=== PATIENT | female | born 1955 | race Caucasian/White ===

== ENCOUNTER 2024-12-27 10:54 | Outpatient (AMB) | payer MEDICARE, SELFPAY ==
--- NOTE | 2024-12-27 11:10 | MHC.PC.OV ---
Vital Signs 12/27/24 11:17 Height 5 ft 2.5 in Weight 192 lb 6 oz BMI 34.6 BP 124/72 Blood Pressure Location Rt brachial Position Sitting Respiration 12 Pulse 73 Pulse Source Pulse Oximeter Temp 96.9 F Temp Source Oral Pulse Oximetry (%) 97 Oxygen Delivery Method Room Air Intake Visit Reasons: EST CARE Intake Note: new patient to establish care Primary Health Organisation Manager Required: No Allergies azithromycin Allergy (Severe, Verified 12/27/24 11:14) Facial Swelling sulfamethoxazole [From Bactrim] Allergy (Severe, Verified 12/27/24 11:14) Gastrointestinal Upset trimethoprim [From Bactrim] Allergy (Severe, Verified 12/27/24 11:14) Gastrointestinal Upset Medication List - Last Reconciled 12/27/24 by CHRIS StephensP- albuterol sulfate 90 mcg/actuation inhalation amlodipine 5 mg PO DAILY cholecalciferol (vitamin D3) 50 mcg PO DAILY folic acid 1 mg PO DAILY losartan 100 mg PO DAILY methotrexate sodium mg PO montelukast 10 mg PO DAILY omeprazole 20 mg PO DAILY Tobacco use date assessed: 12/27/24 Fall risk assessment: No Falls in past year Last assessed Fall Risk: 12/27/24 Dental Screening Dental Screen Date: 12/27/24 Did you have a dental visit in the last 12 months?: No Did you have a dental problem in the last 6 months where you did not have access to dental care?: No Was dental information given to patient?: Patient has dentist HPI HPI Comments History of Present Illness Details 69 y/o F with HTN, GERD, Asthma, Vitamin D def, rheumatoid arthritis, OA, migraines w/o aura, seasonal allergies SurgHx: FHx SocHx: Health Maintenance: See scanned preventative medicine assessment with personalized health plan and screening schedule. Colon: Mammo DEXA PAP Vaccines: PPSV 2015, declined flu and TDap AAA screen EKG: [place] of Care: Rheum Dr Montemayor Visual Acuity: Hearing Screening: ACP: Dietary/Nutrition/Exercise Edu provided: Y History of Present Illness - The patient is a 69-year-old female presenting to establish care and review her chronic conditions. - She moved from a previous care setting due to changes in their payment model, prompting an extensive search for a new provider. Dr Aranda In [place] No records avail @ this time - vitamin D deficiency, managed through supplementation - Suffers from arthritis, specifically rheumatoid, and osteoarthritis, managed by Rheum - Reports debilitating migraines, historically poorly managed with medications but has found some relief with a specific intervention in the form of piercing - Maintains skepticism about ongoing use of certain medications due to side effects and has identified issues with several options historically. - Demonstrates cautious use of medications, careful monitoring of interactions particularly with methotrexate for arthritis. - Has nonseasonal allergies and recurrent sinus infections, managed with montelukast. - Asthma was RXd symbicort, could not afford. Using ALEX frequently. Reports functional limitations with walking as exhibited during a recent family vacation when experiencing difficulty breathing. Review of Systems - General: Reports fatigue; denies recent weight change or fevers. - Musculoskeletal: Reports arthritis in multiple joints, difficulty with physical activity. - Neurologic: Reports frequent migraines, alleviated by ear piercing. - Respiratory: Denies ongoing shortness of breath; experiences dyspnea with exertion. - Gastrointestinal: Reports controlled GERD, careful timing with other medications. - Ear, Nose, Throat: Reports ear and sinus infections exacerbated by weather changes. - Allergic/Immunologic: Year-round allergy symptoms. Physical Exam General: Well developed, well nourished, in no acute distress. Appears stated age. Head: Normocephalic, atraumatic. Eyes: Pupils are equal, round and reactive to light and accommodation. Conjunctivae are clear. Lungs: Clear to auscultation bilaterally. No rales, rhonchi or wheeze noted. Good air flow in all beck. Heart: Regular rate and rhythm. No murmurs, click, rubs or gallops are noted. Extremities: No clubbing, cyanosis noted. Psych: Normal eye contact, affect and mood appropriate, and normal interactions. Patient is alert and appropriate to context. Discussion Notes I discussed at length with the patient the complexities and management of her multiple chronic conditions, emphasizing the need to maintain consistent medication use, particularly for hypertension and rheumatoid arthritis. We reviewed the importance of using the patient portal as the primary communication method to ensure continuity and accuracy in medical management. I reassured the patient regarding the vitamin D supplementation, their ongoing blood pressure medication regimen, and addressed potential alternatives for improving her breathing issues. Bears allergic rhinitis all year round and was counseled about its ongoing management. I also recommended necessary lab work to reevaluate various health parameters. The potential use of Breo, a medication pete to Symbicort, was discussed for respiratory control. Assessment and Plan 1. Essential Hypertension: Continue current medication regimen with amlodipine and losartan due to its effectiveness and importance for cardiovascular health management. 2. Vitamin D Deficiency: Maintain supplementation; further lab assessment planned to check for sufficiency. 3. Rheumatoid Arthritis and Osteoarthritis: Ongoing management includes methotrexate and periodic cortisone injections for shoulder pain, as needed coordination with supplier quality Dr. Dodge for arthritis care. 4. Migraine: Prescribed Zofran for nausea linked with migraines. Encourages portal communication for potential adjustments based on success with earlier medications. 5. Allergic Rhinitis: Year-round symptoms managed with montelukast. 6. Asthma: Initiate Breo once daily, supplementing as a feasible option aside from the albuterol for acute episodes; monitor for response. 7. Gastroesophageal Reflux Disease: Continue omeprazole, ensuring proper timing with methotrexate, careful monitoring of potential interactions. Patient Instructions - Contact the office using the portal for any queries, medication refills, or appointment scheduling. - Take Breo inhaler daily, and use albuterol as a rescue inhaler as needed. - Continue vitamin D supplementation and other prescribed medications as directed. - Report via the portal if issues arise or if the cost of Breo is prohibitive. - Return immediately for any worsening symptoms or new concerns. - rto 4-6 WEEKS sAWV , LAB REVIEW, ETC. Consent Patient was informed and verbally consented to the use of an ambient scribe for clinic note documentation during this visit. Total time spent caring for the patient today was 45 minutes. This includes time spent before the visit reviewing the chart, time spent during the visit, and time spent after the visit on documentation, reviewing laboratory results, diagnostic imaging, medications, performing a medically necessary evaluation, counseling on diagnoses, care coordination, ordering appropriate tests, ordering appropriate medications, review of tests performed by other providers, reporting test results with the patient, communication with other healthcare providers. [facility] Medical History (Updated 12/27/24 @ 18:08 by [facility] Arthritis Asthma GERD (gastroesophageal reflux disease) HTN (hypertension) Sinusitis Surgical History (Updated 12/27/24 @ 11:23 by Jorge Luis Wills MA) H/O shoulder surgery Family History (Updated 12/27/24 @ 11:22 by Jorge Luis Wills MA) Sister HTN (hypertension) Diabetes Brother HTN (hypertension) Diabetes Maternal Grandfather Diabetes Brother Diabetes Social History (Updated 12/27/24 @ 11:17 by Jorge Luis Wills MA) Household Members: Family and Children Housing: House Are you a primary personal caregiver to a significant other at home: No Do you presently have visiting nurse or other home services: No Alcohol intake: current Alcohol intake frequency: a few times a month Patient Tobacco Use Status: Never used Tobacco e-Cigarette/Vaping Use: Never Used Second Hand Smoke Exposure: No Current occupational status: retired Cognitive needs: No Hearing needs: No Vision needs: Yes (wear glasses) Questionnaire PHQ-9 Over the last 2 weeks, how often have you been bothered by any of the following problems? 1. Little interest or pleasure in doing things: not at all 2. Feeling down, depressed, or hopeless: not at all 3. Trouble falling or staying asleep, or sleeping too much: not at all 4. Feeling tired or having little energy: several days 5. Poor appetite or overeating: not at all 6. Feeling bad about yourself - or that you are a failure or have let yourself or your family down: not at all 7. Trouble concentrating on things, such as reading the newspaper or watching television: not at all 8. Moving or speaking so slowly that other people could have noticed. Or the opposite - being so fidgety or restless that you have been moving around a lot more than usual: not at all 9. Thoughts that you would be better off or of hurting yourself in some way: not at all Total score: 1 Depression Screening Interpretation: Negative Depression Screening Done: Yes 72823 - PHQ-9 Billing: Yes Source: Developed by Drs. Leeroy Bullock, Aura Benson, Hossein Link and colleagues, with an educational susi from [employer]. Thrive Questionnaire Date Thrive assessed: 12/27/24 I am a: Patient What is your living situation today?: I have a steady place to live Within the past 12 months, did the food you bought not last and you didn't have the money to get more?: Never true Within the past 12 months, did you worry whether your food would run out before you got money to buy more?: Never true Do you have trouble paying for medicines?: No Do you have trouble getting transportation to medical appointments?: No Do you have trouble paying your heating and electricity bill?: No Do you have trouble taking care of your child, family member or friend?: No Do you have trouble with day-to-day activities such as bathing, preparing meals, shopping, managing finances, etc.?: No Are you currently unemployed and looking for a job?: No Are you interested in more education?: No Please select the resources that you would like help with: None Currently or been in a relationship where the following occur: No concerns reported THRIVE Score: 0 AUDIT C Alcohol Use Questionnaire (AUDIT-C) 1. How often do you have a drink containing alcohol?: Monthly or less 2. How many drinks containing alcohol do you have on a typical day when you are drinking?: 1 or 2 3. How often do you have six or more drinks on one occasion?: Never Total Score: 1 Score Reviewed/Action Taken: Yes JAMAAL-7 AMB Questionnaire JAMAAL-7 Date JAMAAL - 7 assessed: 12/27/24 Feeling nervous, anxious, or on edge: 0 = Not at all Not being able to stop or control worryin = Not at all Worrying too much about different things: 0 = Not at all Trouble relaxin = Not at all Being so restless that it is hard to sit still: 0 = Not at all Becoming easily annoyed or irritable: 0 = Not at all Feeling afraid as if something awful might happen: 0 = Not at all Total JAMAAL-7 score (0-4 normal; 5-9 mild; 10-14 moderate; 15-21 severe): 0 Source: Developed by Drs. Leeroy Bullock, Aura Benson, Hossein Link and colleagues, with an educational susi from [employer]. JAMAAL-7 Assessment Billing JAMAAL-7 Assessment Tool: JAMAAL-7 Assessment 20178 ACT Questionnaire In the past 4 weeks, how much of the time did your asthma keep you from getting as much done at work, school or at home?: None of the time During the past 4 weeks, how often have you had shortness of breath?: Not at all During the past 4 weeks, how often did your asthma symptoms wake you up at night or earlier than usual in the morning?: Not at all During the past 4 weeks, how often have you had to use your rescue inhaler or nebulizer medication?: Not at all How would you rate your asthma control during the past 4 weeks?: Completely controlled ACT Interpretation: Negative Score: 25 Physical exam (Primary Care) Vital Signs: Last Vital Signs Temp 96.9 F 12/27/24 11:17 Pulse 73 12/27/24 11:17 Resp 12 12/27/24 11:17 BP 124/72 12/27/24 11:17 Pulse Ox 97 12/27/24 11:17 Oxygen Delivery Method Room Air 12/27/24 11:17 BMI result Body Mass Index 34.6 BMI Assessment/Plan discussion: High BMI High, discussed plan: lifestyle Tobacco/Smoking Status: Tobacco use Status Tobacco use date assessed 12/27/24 12/27/24 11:19 Patient Tobacco Use Status Never used Tobacco 12/27/24 11:19 e-Cigarette/Vaping Use Never Used 12/27/24 11:19 PHQ-9: PHQ-9 Score PHQ-9: Total score 1 12/27/24 11:43 Depression Screening Interpretation: Negative Thrive Assessment: Date of Thrive Assessment Date Thrive assessed 12/27/24 12/27/24 11:13 Currently or been in a relationship where the following occur: No concerns reported Coding Level of Care Code New Pt Level 4 (11821) Complex EM visit Add On G2211 Diagnoses Primary hypertension I10 Hypertension type: primary hypertension Vitamin D deficiency E55.9 Rheumatoid arthritis with positive rheumatoid factor, involving unspecified site M05.9 Rheumatoid arthritis location: unspecified site Rheumatoid factor presence: with rheumatoid factor Migraine without aura and without status migrainosus, not intractable G43.009 Intractability: not intractable Status migrainosus presence: without status migrainosus Tetanus, diphtheria, and acellular pertussis (Tdap) vaccination declined Z28.21 Influenza vaccination declined by patient Z28.21 Gastroesophageal reflux disease without esophagitis K21.9 Esophagitis presence: without esophagitis BMI 34.0-34.9,adult Z68.34 Obesity, Class I, BMI 30.0-34.9 (see actual BMI) E66.811 Laboratory exam ordered as part of routine general medical examination Z00.00 Mild intermittent asthma in adult without complication J45.20 Additional Codes Asthma Control Questionnaire - ACT Interpretation: Negative ([id number]) JAMAAL-7 Assessment Billing - JAMAAL-7 Assessment Tool: JAMAAL-7 Assessment 81888 ([id number]) PHQ-9 - 79433 - PHQ-9 Billing: Yes ([id number]) Assessment & Plan Assessment & Plan (1) HTN (hypertension): Code(s): I10 - Essential (primary) hypertension Category: Medical Qualifiers: Hypertension type: primary hypertension Qualified Code(s): I10 - Essential (primary) hypertension (2) Vitamin D deficiency: Code(s): E55.9 - Vitamin D deficiency, unspecified Category: Medical (3) Rheumatoid arthritis: Code(s): M06.9 - Rheumatoid arthritis, unspecified Category: Medical Qualifiers: Rheumatoid arthritis location: unspecified site Rheumatoid factor presence: with rheumatoid factor Qualified Code(s): M05.9 - Rheumatoid arthritis with rheumatoid factor, unspecified (4) Migraine without aura: Code(s): G43.009 - Migraine without aura, not intractable, without status migrainosus Category: Medical Qualifiers: Intractability: not intractable Status migrainosus presence: without status migrainosus Qualified Code(s): G43.009 - Migraine without aura, not intractable, without status migrainosus (5) Tetanus, diphtheria, and acellular pertussis (Tdap) vaccination declined: Code(s): Z28.21 - Immunization not carried out because of patient refusal Category: Medical (6) Influenza vaccination declined by patient: Code(s): Z28.21 - Immunization not carried out because of patient refusal Category: Medical (7) GERD (gastroesophageal reflux disease): Code(s): K21.9 - Gastro-esophageal reflux disease without esophagitis Category: Medical Qualifiers: Esophagitis presence: without esophagitis Qualified Code(s): K21.9 - Gastro-esophageal reflux disease without esophagitis (8) BMI 34.0-34.9,adult: Code(s): Z68.34 - Body mass index [BMI] 34.0-34.9, adult Category: Medical (9) Obesity, Class I, BMI 30.0-34.9 (see actual BMI): Code(s): E66.811 - Obesity, class 1 Category: Medical (10) Laboratory exam ordered as part of routine general medical examination: Code(s): Z00.00 - Encounter for general adult medical examination without abnormal findings Category: Medical (11) Mild intermittent asthma in adult without complication: Code(s): J45.20 - Mild intermittent asthma, uncomplicated Category: Medical Plan . Orders: Orders Comprehensive Met. Panel Today E55.9 - Vitamin D deficiency, unspecified, I10 - Essential (primary) hypertension, Z00.00 - Encounter for general adult medical examination without abnormal findings Lipid Panel Today E55.9 - Vitamin D deficiency, unspecified, I10 - Essential (primary) hypertension, Z00.00 - Encounter for general adult medical examination without abnormal findings Hemoglobin A1c Today E55.9 - Vitamin D deficiency, unspecified, I10 - Essential (primary) hypertension, Z00.00 - Encounter for general adult medical examination without abnormal findings Microalbumin, Random (w Creat) Today E55.9 - Vitamin D deficiency, unspecified, I10 - Essential (primary) hypertension, Z00.00 - Encounter for general adult medical examination without abnormal findings Vitamin B12 and Folate Today E55.9 - Vitamin D deficiency, unspecified, I10 - Essential (primary) hypertension, Z00.00 - Encounter for general adult medical examination without abnormal findings Vitamin D 25-OH Total Today E55.9 - Vitamin D deficiency, unspecified, I10 - Essential (primary) hypertension, Z00.00 - Encounter for general adult medical examination without abnormal findings IRON PROFILE Today E55.9 - Vitamin D deficiency, unspecified, I10 - Essential (primary) hypertension, Z00.00 - Encounter for general adult medical examination without abnormal findings TSH reflex Free T4 Today E55.9 - Vitamin D deficiency, unspecified, I10 - Essential (primary) hypertension, Z00.00 - Encounter for general adult medical examination without abnormal findings Complete Blood Count no Diff Today E55.9 - Vitamin D deficiency, unspecified, I10 - Essential (primary) hypertension, Z00.00 - Encounter for general adult medical examination without abnormal findings Medications: New losartan 100 mg PO DAILY 90 tabs 1RF amlodipine 5 mg PO DAILY 90 tabs 1RF albuterol sulfate 90 mcg/actuation 2 inhalations inhalation Q6H PRN 6.7 grams 2RF bronchospasm ondansetron HCl 4 mg PO Q8H PRN 15 tabs 0RF nausea and vomiting 3 days montelukast 10 mg PO DAILY 90 tabs 1RF omeprazole 20 mg PO DAILY 90 caps 1RF fluticasone furoate-vilanterol 50-25 mcg/dose (Breo Ellipta) 1 inh inhalation Q24H 60 ea 2RF Patient Instructions: Walk-In Care (Urgent Care): We Make it Easy Walk-in for urgent medical issues such as: ? Seasonal Allergies ? Insect Bites ? Cough ? Diarrhea ? Acute Asthma Attacks ? Back, Knee or Joint Pain ? Ear Infection ? Fever without a Rash ? Headaches ? Nausea ? [place] Eye, Rash or Skin Irritation ? Sore Throat ? Sports Physicals ? Vomiting Most insurances are accepted. Patients do not need to be part of the [facility] to seek care at the walk-in clinic. Locations [facility] , [place] [address] ? [phone] [facility] Walk-In Care in [place] provides services to ages 18 and over. Open Tuesday-Tuesday: 8 a.m. to 5 p.m. and Tuesday: 9 a.m. to 3 p.m.* *Hours may vary due to staffing availability. To confirm Walk-In Care hours in [place], please call [phone]. [address] [place] [address] ? [phone] [facility] Walk-In Care in [place] provides services to ages 12 and over. Open Tuesday-Tuesday: 8 a.m. to 5 p.m. Hours may vary due to staffing availability. To confirm Walk-In Care hours in [place], please call [phone]. LABORATORY SERVICES: [facility] Lab ? Primary Location [address] [place] [address] Tuesday through Tuesday 6:00 AM ? 5:00 PM Tuesday 7:00 AM ? 11:00 AM* [phone] The [facility] Lab is centrally located near the front entrance of the [facility] for easy outpatient access. Convenient parking is provided for outpatients. *Hours may vary due to staffing availability. To confirm Laboratory hours for any location, please call [phone]. Offsite Location For your convenience, we offer offsite laboratory draw stations at the following locations: [address] [place] [address] ? [facility] [address], [address], [facility] ? 1:00 PM* [phone] *Hours may vary due to staffing availability. To confirm Laboratory hours for any location, please call [phone]. [place] ? Paz Christensen [address] [facility] Nay Christensen Tuesday through Tuesday 6:00 AM ? 3:30 PM* Tuesday 6:30 AM ? 3 PM* [phone] *Hours may vary due to staffing availability. To confirm Laboratory hours for any location, please call [phone]. [address] [facility] Tuesday through Tuesday 7:30 AM ? 4:00 PM* [phone] *Hours may vary due to staffing availability. To confirm Laboratory hours for any location, please call [phone]. [facility] Tuesday through 9:00 AM ? 4:00 PM* *Hours may vary due to staffing availability. To confirm Laboratory hours for any location, please call [phone]. Appointments are not necessary. Walk-ins are welcome. Like all the departments throughout the [facility], our Lab undergoes frequent reviews to ensure the quality and accuracy of test results, and our staff takes special pride in its status as a nationally accredited facility. Patient Portal: ONE PATIENT. ONE RECORD. BETTER CARE. [facility] has a fully integrated, cutting-edge mobile electronic health information system that has revolutionized the way we care for our patients and manage our organization. This system improves communication and coordination enabling us to provide safe, higher-quality care, and an overall positive experience for staff and patients. Our first priority, as always, is to deliver the highest quality care possible. The system is running in the background supporting that priority. This portal is for all [facility] services and practices. If you are experiencing any technical difficulties with enrolling or logging into the Patient Portal please complete the [facility] Patient Portal Technical Support Form. [facility] now offers a new secure on-line interactive tool for patients to review their health information ? ?Patient Portal. This interactive web portal will enable patients and their families to take an active role in their care by providing easy, secure access to their health information via the internet. The Patient Portal provides patients with instant access to their health information, including laboratory results, medications, allergies, demographic information, visit history, and more. In addition to managing their own care, parents and health care proxies with authorized consent will appreciate the ability to access the records of those individuals for whom they provide care. Please note: if you wish to gain access (Proxy) to another patient?s portal, you will be required to come to the Medical Records Department in person at [facility]. Both the patient giving proxy access and the proxy will need to provide photo identification and complete the appropriate authorization. The Patient Portal also allows track their appointments online. The [facility] Patient Portal also saves patients time by allowing them to submit updates to their demographic and contact information prior to their visits. Portal email notifications will also alert patients to any new activity on their portal, such as test results and new appointments. In order to initially enroll in the [facility] Patient Portal, you will need to enter some required information including the following: your [facility] Medical Record number your personal home email address name date of Please note: In order to enroll in the [facility] Patient Portal, we need to have your email address on file in your electronic medical record. ?The email address needs to be specific for one person (yourself) in order for your Portal enrollment to be successful. ?You can update your email address in person with our Registration staff when you are registering for a hospital visit. ?Otherwise, you will need to come to the Health Information Management (Medical Records) Department at [facility]. ?We are open from Tuesday ? Tuesday from 7:30 a.m. ? 4:30 p.m. ?You will be required to present a photo id. Once you have successfully enrolled in the Patient Portal, you will receive a one-time user id and password for the Portal, sent to your email address. ?This will allow you to log into the Patient Portal within 99 hrs and reset your own logon id and password, and define personal security questions. ?Once your permanent login and password have been set, you can log into the [facility] Patient Portal at any time via the blue button above or from the Portal Logon button on any page of the [facility] website. [facility] and [facility] encourage all of our patients to enroll in Patient Portal as it presents a valuable opportunity for patients and their families to actively participate in their care and stay healthy Welcome to [facility]. ?We look forward to working with you.
[2024-12-27 11:17] VITALS: BP 124/72; PULSE 73; RESP 12; TEMP 36.1; O2SAT 97; BMI 34.6
== END 2024-12-27 11:44 | disposition home or self-care (01) ==
LOC: HO.HMCFM 10:55
PROVIDERS: PCP Nurse Practitioner Family; Visit Provider Nurse Practitioner Family
DX: I10 Essential (primary) hypertension (principal); E55.9 Vitamin D deficiency, unspecified; M05.9 Rheumatoid arthritis with rheumatoid factor, unspecified; G43.009 Migraine without aura, not intractable, without status migrainosus; Z28.21 Immunization not carried out because of patient refusal; K21.9 Gastro-esophageal reflux disease without esophagitis; Z68.34 Body mass index [BMI] 34.0-34.9, adult; E66.811 Obesity, class 1; Z00.00 Encounter for general adult medical examination without abnormal findings; J45.20 Mild intermittent asthma, uncomplicated

== ENCOUNTER 2024-12-27 12:39 | Outpatient (REF) | payer MEDICARE, SELFPAY ==
[2024-12-27 14:39] LABS: Hematocrit 40.7 % (37.0-47.0); Hemoglobin 13.8 g/dl (12.0-16.0); Mean Corpuscular HGB Conc 33.9 g/dl (31.0-35.0); Mean Corpuscular Hemoglobin 30.2 pg (27.0-33.0); Mean Corpuscular Volume 89.1 fL (80.0-98.0); Mean Platelet Volume 9.8 fL (9.4-12.3); Platelet Count 313 X10*3/uL (160-400); Red Blood Count 4.57 X10*6/uL (4.20-5.50); Red Cell Distribution Width 14.5 % (11.0-16.0); White Blood Count 10.6 X10*3/uL (4.8-10.8)
[2024-12-27 14:46] LABS: Estimated Average Glucose 126 mg/dL; Hemoglobin A1C 149.5032 umol/L
[2024-12-27 15:12] LABS: Creatinine Urine 102.56 mg/dL; Microalbum/Creatinine Ratio Ur 6.8 ug/mg cr (<30)
[2024-12-27 15:32] LABS: Alanine Aminotransferase 35 U/L (0-31); Albumin Level 4.2 g/dL (3.5-5.0); Alkaline Phosphatase 101 U/L (39-117); Anion Gap 15 (12-20); Aspartate Amino Transferase 21 U/L (5-31); Bilirubin Total 0.4 mg/dL (0.0-1.0); Blood Urea Nitrogen 14 mg/dL (9-16); Carbon Dioxide 26 mmol/L (22-29); Chloride 106 mmol/L (96-108); Cholesterol 215 mg/dL (<200); Estimated Glomerular Filt Rate > 60; Glucose Random 127 mg/dL (60-115); HDL Cholesterol 43 mg/dL (>40); Iron 62 mcg/dL (30-160); LDL Cholesterol Calculated 109 mg/dL (<100); Percent Iron Saturation 22 % (15-50); Potassium 3.7 mmol/L (3.3-5.1); Sodium 143 mmol/L (135-145); TSH reflex Free T4 1.12 uIU/mL (0.32-4.0); Total Iron Binding Capacity 278 mcg/dL (228-428); Total Protein 7.6 g/dL (6.5-8.0); Triglycerides 318 mg/dL (<150); Unsaturated Iron Binding 216 ug/dL; Vitamin D 25-OH Total 45.4 ng/mL (>30)
[2024-12-27 15:50] LABS: Folate > 20.0 ng/mL (> or = 4.0); Vitamin B12 331 pg/mL (200-900)
== END 2024-12-27 12:40 | disposition home or self-care (01) ==
LOC: HO.WFDLDS 12:39
PROVIDERS: Visit Provider Nurse Practitioner Family
DX: Z00.00 Encounter for general adult medical examination without abnormal findings (principal); E55.9 Vitamin D deficiency, unspecified; I10 Essential (primary) hypertension; Z13.1 Encounter for screening for diabetes mellitus
CPT/HCPCS: 36415; 80053; 80061; 82043; 82306; 82570; 82607; 82746; 83036; 83540; 84443; 85027; 96127; 96160; 99202

== ENCOUNTER 2025-02-08 12:59 | Outpatient (AMB) | payer MEDICARE, SELFPAY ==
--- NOTE | 2025-02-08 13:03 | A.OFFVIS_ITS ---
Intake Vital Signs 02/08/25 13:08 Height 5 ft 2.5 in Weight 192 lb 4 oz BMI 34.6 BP 130/72 Blood Pressure Location Rt brachial Position Sitting Respiration 13 Pulse 76 Pulse Source Pulse Oximeter Temp 97.3 F Temp Source Oral Pulse Oximetry (%) 96 Oxygen Delivery Method Room Air Intake Visit Reasons: 4-6 WEEKS SAWV 30 MIN Intake Note: AWV Director Learning Services Required: No Allergies azithromycin Allergy (Severe, Verified 02/08/25 13:21) Facial Swelling sulfamethoxazole [From Bactrim] Allergy (Severe, Verified 02/08/25 13:21) Gastrointestinal Upset trimethoprim [From Bactrim] Allergy (Severe, Verified 02/08/25 13:21) Gastrointestinal Upset Medication List - Last Reconciled 02/08/25 by Angely Sanders [facility]- albuterol sulfate 90 mcg/actuation 2 inhalations inhalation Q6H PRN amlodipine 5 mg PO DAILY cholecalciferol (vitamin D3) 50 mcg PO DAILY fluticasone furoate-vilanterol 50-25 mcg/dose (Breo Ellipta) 1 inh inhalation Q24H folic acid 1 mg PO DAILY losartan 100 mg PO DAILY methotrexate sodium mg PO montelukast 10 mg PO DAILY omeprazole 20 mg PO DAILY ondansetron HCl 4 mg PO Q8H PRN 3 days Do you need a note to return to daycare/school/sports/work: No HPI HPI Comments History of Present Illness Details Here today for AWV. The Medicare Annual Wellness Visit (AWV) is a yearly appointment with a health professional to identify health risks and help reduce them and to create or update a personalized prevention plan. During a Medicare AWV, health professionals should also review any current opioid prescriptions, detect any cognitive impairment, and establish or update medical and family history. 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 Colon: 2022 repeat 10 years Mammo 2022, new order placed today DEXA ordered today PAP aged out Vaccines: PPSV 2015, declined flu, TDap today AAA screen: NA EKG: done today NSR Results: 12/27/24 hga1c 6%, ALT 35 TC 215, TG 318, LDL 109 HDL 43 otherwise labs wnl [place] of Care: Rhe[facility] Visual Acuity: glasses, last exam 01/14/25 Hearing Screening: hearing test 3-4 years ago, WNL ACP: has a living will, MOLST and HCP provided today Dietary/Nutrition/Exercise Edu provided: Y During the course of the visit the patient was educated and counseled about appropriate screening and preventative services. Patient instructions were provided to the patient in written or electronic format. I have reviewed and verified the above information. History of Present Illness - The patient is a 69-year-old female pr esenting for an annual Medicare wellness visit and routine fu of chronic conditions - The patient has a considerable medical history of hypertension, GERD, asthma, vitamin D deficiency, rheumatoid arthritis, osteoarthritis, migraine, seasonal allergies, osteopenia, obesity, and cervical spondyloarthritis. - The patient raised concerns over a ski n lesion on the right buddhism, unexamined by dermatology - Not using the prescribed inhaler due t o financial constraints thwarting use of Breo. - Reports past colonoscopy in March 2023 showing normal results, last mammogram in April 2023. - Family and personal history of osteopo rosis necessitates bone density evaluation; documented history of osteopenia with a single bone density test in the past. - Noted history of abnormal uterine blee ding resolved with heat ablation procedure over a decade prior. - Experiencing urinary incontinence; is interested in a urological evaluation for this issue. - Discussed past head injury trauma incl uding diagnosis of vasovagal syncope occurring during severe pain. Past Surgical History - Heat ablation of the uterus at age 49 for abnormal uterine bleeding. - Right shoulder arthroscopic surgery fo r bone spurs and arthritis removal. - Dilation and curettage (D&C) procedure s in the past. - Breast biopsy procedure for a suspecte d mass following chest scan indications. Family History - Family history of osteoporosis with kylah th mother and father confirmed with the condition - Several siblings with diabetes diagnos is. - Paternal family history of various typ es of cancer including stomach and throat cancer. Social History - Lives with two sons and a granddaughte r. - Engages actively in household and fami ly responsibilities despite experiencing discomfort. - Experiences limited exercise due to bu sy schedule but stays physically active by assisting her brothers with daily tasks. - No tobacco, alcohol, or drug use repor zev. - Primary stress stems from traumatic fa joni events including the loss of a daughter. Health Maintenance - Last mammogram was conducted in April 10, reports of dense tissue; latest colonoscopy in March 2023, results normal. - Recommended to coordinate mammogram an d bone density tests together; [facility] [place]. - A1c level is at 6%, classified as pred iabetic but stable; requires monitoring. - Patient amenable to review her medicat ions with pharmacy due to financial constraints. - No Pap smear required given medical an d familial history. - Encouraged to get a tetanus vaccinatio n due to unclear last record. - Encouraged to drink lemon water for be neficial health outcomes. Review of Systems - Skin: Reports suspicious lesion on the right buddhism. - Respiratory: Denies wheezing; reports financial constraint in medication procurement for asthma. - Cardiovascular: Denies dizziness. - Musculoskeletal: Reports daily varying musculoskeletal pain. - Neurological: Denies dizziness upon st anding. - Genitourinary: Reports urinary inconti nence. - Endocrine: Denies feeling overly tired or fatigue except situationally. - Psychiatric: Denies depression or anxi ety except in response to personal loss. - Reports regular family and social acti vities, moderate exercise engagements as per lifestyle. Physical Exam General: Well developed, well nourished, in no acute distress. Appears stated age. Head: Normocephalic, atraumatic. Eyes: Pupils are equal, round and reactive to light and accommodation. Conjunctivae are clear. Vision grossly normal. Ears: TMs clear AU, EACS WNL Nose: Patent, without discharge. Neck: Supple, no adenopathy or thyromegaly. Breast: Edu on SBE Lungs: Clear to auscultation bilaterally. No rales, rhonchi or wheeze noted. Good air flow in all beck. Heart: Regular rate and rhythm. No murmurs, click, rubs or gallops are noted. Abdomen: Bowel sounds present in all quadrants. The abdomen is soft, nontender, with no masses or organomegaly noted. No hernias are noted. : Deferred. Reviewed recommendations for routine [employer] Pulses: Peripheral pulses are equal and palpable bilaterally. Extremities: No clubbing, cyanosis nor edema is noted. Neurologic: Gait and station normal. Cranial Nerves 2-12 intact. Motor strength grossly symmetrical and intact. No sensory loss. Balance normal. Skin: No rashes, ulcers, or lesions noted. Turgor is good. Skin color is good. Hair and nails are without abnormalities. Noted a lesion on the right cheek, possibly basal, referred to dermatology for evaluation. Psych: Normal eye contact, affect and mood appropriate, and normal interactions. Patient is alert and appropriate to context. Results - Labs: A1c level stable at 6%, mildly e levated liver enzyme but deemed cli nically insignificant. - Tests: Cholesterol screening indicates an LDL level at 109. - Mammogram: April 2023, noted dense samira st tissue. - Colonoscopy: March 20, 2023, normal. Discussion Notes During the visit, I discussed the patient?s concerns regarding the $100 per month cost of her prescribed inhaler Breo and explored alternative options at the pharmacy for more cost-effective medication formulations. We reviewed her skin concern on the right buddhism and emphasized having dermatological evaluation. We also explored her recent health screenings; her mammogram showed dense breast tissues, while her colonoscopy was normal. Considering family history of osteoporosis and personal osteopenia, a bone density test was ordered alongside her next mammogram. We discussed urinary incontinence management, resulting in a recommendation for urology consultation at [facility]. The option for a tetanus booster was also agreed upon. For cognitive screening, I executed a mild cognitive assessment which took into account her past head injuries; no significant deficits were noted. Additional emotional support was provided in light of her traumatic family history, and general wellness discussions progressed towards lifestyle adjustments and various precautions. Assessment and Plan 1. Essential Hypertension The patient?s blood pressure is under control at 130/72, requiring continued observation and management. 2. Asthma Addressed pharmacy evaluation for inhaler alternatives due to affordability difficulties. 3. Skin Lesion Referral placed for dermatology to assess the skin lesion on the right buddhism. 4. Osteopenia Recommended bone density evaluation aligned with mammogram scheduling. 5. Urinary Incontinence Referred the patient to urology for incontinence management. 6. Abnormal Uterine Bleeding No further intervention or follow-up necessary post-ablation. 7. Monitoring of Vitamin D Deficiency Ensure vitamin D levels remain in check with continued supplementation. 8. Cognitive Health Routine cognitive screening completed and patient demonstrated expected results without concern. Patient Instructions - Talk to your pharmacy about cost-effec tive options for your asthma inhaler. - Await dermatology referral contact to schedule a further evaluation of the buddhism lesion. - Coordinate bone density test with mamm ogram at [place] [place]. - Pursue urology contact for incontinenc e issues. - Anticipate administration of the tetan us vaccine. - Increase the intake of lemon water to support health. RTO 6 mo routine fu labs 1 week before Consent Patient was informed and verbally consented to the use of an ambient scribe for clinic note documentation during this visit. An additional 31 minutes was spent addressing the problem(s) noted at todays visit. This includes time spent before the visit reviewing the chart, time spent during the visit, and time spent after the visit on documentation reviewing laboratory results, diagnostic imaging, medications, performing a medically necessary evaluation, counseling on diagnoses, care coordination, ordering appropriate tests, ordering appropriate medications, review of tests performed by other providers, reporting test results with the patient, communication with other healthcare providers. ON LICENSE OF [facility] Medical History (Updated 02/09/25 @ 17:27 by Angely Sanders [facility]) Arthritis Asthma GERD (gastroesophageal reflux disease) History of echocardiogram (~2019) History of screening mammography (~2022) HTN (hypertension) Sinusitis Surgical History (Updated 02/08/25 @ 08:06 by Angely Sanders [facility]) H/O shoulder surgery History of colonoscopy (~03/2023) History of esophagogastroduodenoscopy (EGD) (~08/2020) Family History (Updated 12/27/24 @ 11:22 by Jorge Luis Wills MA) Sister HTN (hypertension) Diabetes Brother HTN (hypertension) Diabetes Maternal Grandfather Diabetes Brother Diabetes Social History (Updated 12/27/24 @ 11:17 by Jorge Luis Wills MA) Household Members: Family and Children Both parents involved: No Caregiver staying overnight: No Housing: House Are you a primary ambulatory care nurse to a significant other at home: No Do you presently have visiting nurse or other home services: No 75 years or older and lives alone: No Alcohol intake: current Alcohol intake frequency: a few times a month Patient Tobacco Use Status: Never used Tobacco e-Cigarette/Vaping Use: Never Used Second Hand Smoke Exposure: No Current occupational status: retired Cognitive needs: No Hearing needs: No Vision needs: Yes (wear glasses) Questionnaire Medicare Wellness Checkup What [age] your [age]?: [age] What gender do you identify with?: female During the past 4 weeks, how much have you been bothered by emotional problems such as feeling anxious, depressed, irritable, sad or downhearted, and blue?: not at all During the past 4 weeks, has your physical & emotional health limited your social activities with family, friends, neighbors, or groups?: not at all During the past 4 weeks, how much bodily pain have you generally had?: mild pain During the past 4 weeks, was someone available to help you if you needed & wanted help?: yes, as much as I wanted During the past 4 weeks, what was the hardest physical activity you could do for at least 2 minutes?: moderate Can you get to places out of walking distance without help? (For eg., can you travel alone on buses, taxis or drive your car?): Yes Can you go shopping for groceries or clothes without someone's help?: Yes Can you prepare your own meals?: Yes Can you do your housework without help?: Yes Because of any health problems, do you need the help of another person with your personal care needs such as eating, bathing, dressing or getting around the house?: No Can you handle your own money without help?: Yes During the past 4 weeks, how would you rate your health in general?: very good During the past 4 weeks how have things been going for you?: pretty well Are you having difficulties driving your car?: no Do you always fasten your seat belt when you are in a car?: yes, usually During past 4 weeks, have you been bothered by the following: never: Sexual problems?, Trouble eating well?, Teeth or denture problems? and Problems using the telephone? and seldom: Falling or dizzy when standing up and Tiredness or fatigue? Have you fallen 2 or more times in the past year?: No Are you afraid of falling?: No Are you a smoker?: no During the past 4 weeks, how many drinks of wine, beer, or other alcoholic beverages did you have?: no alcohol at all Do you exercise for about 20 minutes 3 or more times a week?: yes, some of the time Have you been given information to help with the following?: no: Hazards in your house that might hurt you? and no: Keeping track of your medications? How often do you have trouble taking medicines the way you have been told to take them?: I always take medicine as prescribed How confident are you that you can control & manage most of your health problems?: very confident What is your race?: White Activity of Daily Living Bathing - sponge bath, tub bath or shower: receives no assistance (gets in/out by self, if usual bathing means Dressing - getting clothes from closets & drawers, including inner/outer garments & fasteners.: gets clothes & gets completely dressed without help Toileting - going to the 'toilet room' for urine/bowel elimination & cleaning s elf/arranging clothes: goes to toilet room, cleans self, arranges clothes without help Transfer: moves in & out of bed and chair without help (may use support object) Continence: controls urination/bowel movements completely by self Feeding: feeds self without help Total Score: 0 Information obtained from: patient Using telephone: independent Traveling: independent Shopping: independent Preparing meals: independent Housework: independent Taking medicine: independent Managing money: independent PHQ-9 Over the last 2 weeks, how often have you been bothered by any of the following problems? 1. Little interest or pleasure in doing things: not at all 2. Feeling down, depressed, or hopeless: not at all 3. Trouble falling or staying asleep, or sleeping too much: not at all 4. Feeling tired or having little energy: not at all 5. Poor appetite or overeating: not at all 6. Feeling bad about yourself - or that you are a failure or have let yourself or your family down: not at all 7. Trouble concentrating on things, such as reading the newspaper or watching television: not at all 8. Moving or speaking so slowly that other people could have noticed. Or the opposite - being so fidgety or restless that you have been moving around a lot more than usual: not at all 9. Thoughts that you would be better off or of hurting yourself in some way: not at all Total score: 0 Depression Screening Interpretation: Negative Depression Screening Done: Yes 71034 - PHQ-9 Billing: Yes Source: Developed by Drs. Leeroy Bullock, Aura Benson, Hossein Link and colleagues, with an educational susi from [employer]. Physical Exam Vital Signs: Last Vital Signs Temp 97.3 F 02/08/25 13:08 Pulse 76 02/08/25 13:08 Resp 13 02/08/25 13:08 BP 130/72 02/08/25 13:08 Pulse Ox 96 02/08/25 13:08 Oxygen Delivery Method Room Air 02/08/25 13:08 BMI result Body Mass Index 34.6 Office Procedures EKG 94203-[id number], Complete Vision Screening Right Eye: 20/25 Left Eye: 20/20 Bilateral: 20/20 Color: Pass Corrected: Pass (wearing glasses) 13528 - Vision Screening Immunizations Boostrix Tdap 2.5 Lf unit-8 mcg-5 Lf/0.5 mL intramuscular syringe Performing Provider: JUAN R Stephens Performing Location: [facility] Administered by: Sherine Reyes RN on 02/08/25 14:15 Dose Route Admin Location Dispensed Lot Number Expiration Date NDC Clinical Services Specialist 0.5 mL IM Left Deltoid 0.5 mL [id number] 10/19/26 [id number] [facility] V[facility] Given Date VIS Provided VIS Publication Date 02/08/25 Single Vaccine 21 Eligibility Eligibility Date Funding Source Not [facility] Eligible 02/08/25 Private Assessment & Plan Assessment & Plan (1) Encounter for subsequent annual wellness visit (AWV) in Medicare patient: Onset Date: ~02/2025 Code(s): Z00.00 - Encounter for general adult medical examination without abnormal findings (2) Osteopenia: Code(s): M85.80 - Other specified disorders of bone density and structure, unspecified site Qualifiers: Osteopenia location: unspecified Qualified Code(s): M85.80 - Other specified disorders of bone density and structure, unspecified site (3) Urine, incontinence, stress female: Code(s): N39.3 - Stress incontinence (female) (male) (4) Skin lesion of face: Code(s): L98.9 - Disorder of the skin and subcutaneous tissue, unspecified (5) Prediabetes: Code(s): R73.03 - Prediabetes (6) Cervical spondylarthritis: Comment: c spine xray Code(s): M47.812 - Spondylosis without myelopathy or radiculopathy, cervical region Qualifiers: Spinal osteoarthritis complication: without myelopathy or radiculopathy Qualified Code(s): M47.812 - Spondylosis without myelopathy or radiculopathy, cervical region (7) GERD (gastroesophageal reflux disease): Code(s): K21.9 - Gastro-esophageal reflux disease without esophagitis Qualifiers: Esophagitis presence: without esophagitis Qualified Code(s): K21.9 - Gastro-esophageal reflux disease without esophagitis (8) HTN (hypertension): Code(s): I10 - Essential (primary) hypertension Qualifiers: Hypertension type: primary hypertension Qualified Code(s): I10 - Essential (primary) hypertension (9) HLD (hyperlipidemia): Code(s): E78.5 - Hyperlipidemia, unspecified Qualifiers: Hyperlipidemia type: mixed hyperlipidemia Qualified Code(s): E78.2 - Mixed hyperlipidemia (10) Migraine without aura: Code(s): G43.009 - Migraine without aura, not intractable, without status migrainosus Qualifiers: Intractability: not intractable Status migrainosus presence: without status migrainosus Qualified Code(s): G43.009 - Migraine without aura, not intractable, without status migrainosus (11) Mild intermittent asthma in adult without complication: Code(s): J45.20 - Mild intermittent asthma, uncomplicated (12) Vitamin D deficiency: Code(s): E55.9 - Vitamin D deficiency, unspecified (13) ACP (advance care planning): Code(s): Z71.89 - Other specified counseling Plan . Orders: Orders MM tomosynthesis screening BI 02/08/25 Z12.31 - Encounter for screening mammogram for malignant neoplasm of breast Comprehensive Met. Panel 6 Months R73.03 - Prediabetes Lipid Panel 6 Months R73.03 - Prediabetes XR DEXA axial skeleton 02/08/25 M85.80 - Other specified disorders of bone density and structure, unspecified site, Z13.820 - Encounter for screening for osteoporosis Hemoglobin A1c 6 Months R73.03 - Prediabetes TDaP Immunization 02/08/25 Z23 - Encounter for immunization Referrals Urology Referral N39.3 - Stress incontinence (female) (male) Dermatology Referral L98.9 - Disorder of the skin and subcutaneous tissue, unspecified Quality Reporting (2019) Adult ([facility] 138/2/69) Smoking risk assessment performed?: Yes Patient Tobacco Use Status: Never used Tobacco Depression screening performed: Yes Systolic BP not done?: No Diastolic BP not done?: No BMI screening not done: No Sexual Activity Screening ([facility] 153) Sexually active?: No Immunizations ([facility] 147, 117) Annual Influenza Vaccine: Yes Measles Antibody Test: No Mumps Antibody Test: No Rubella Antibody Test: No Varicella Antibody Test: No Anti Hepatitis A IgG Antigen test: No Anti Hepatitis B Virus Surface Ab test: No Fall Risk Screening ([facility] 139) Last assessed Fall Risk: 02/08/25 Fall risk assessment: No Falls in past year Dementia Assessment ([facility] 149) Cognitive assessment recorded: Yes Assessment of cognition with standardized tool: Yes (0/28 on 6 CIT ) Depression/Bipolar (159/160/161/177) PHQ-9: Total score: 0 Ophthalmol:Cataracts Visual Acuity (133) Visual acuity exam performed: Yes (see elow ) Coding Level of Care Code Medicare Subsequent (G0439) Est Pt Level 4 (89631) Diagnoses Encounter for subsequent annual wellness visit (AWV) in Medicare patient Z00.00 Osteopenia, unspecified location M85.80 Osteopenia location: unspecified Urine, incontinence, stress female N39.3 Skin lesion of face L98.9 Prediabetes R73.03 Spondylosis of cervical region without myelopathy or radiculopathy M47.812 Spinal osteoarthritis complication: without myelopathy or radiculopathy Gastroesophageal reflux disease without esophagitis K21.9 Esophagitis presence: without esophagitis Primary hypertension I10 Hypertension type: primary hypertension Mixed hyperlipidemia E78.2 Hyperlipidemia type: mixed hyperlipidemia Migraine without aura and without status migrainosus, not intractable G43.009 Intractability: not intractable Status migrainosus presence: without status migrainosus Mild intermittent asthma in adult without complication J45.20 Vitamin D deficiency E55.9 ACP (advance care planning) Z71.89 CPT Codes Advance Care Planning - Time spent: 1-15 minutes, not on file ([id number]) Vision Screening - Vision Screenin - Vision Screening ([id number]) EKG - CPT: 92748-[id number], Complete ([id number]) Additional Codes PHQ-9 - 96166 - PHQ-9 Billing: Yes ([id number]) Advance Care Planning Advance Care Planning discussion: Exists, not on file Date of discussion: 02/08/25 Forms completed: Health Care Proxy, MOLST and Living will Time spent: 1-15 minutes, not on file Actual minutes spent: 5
[2025-02-08 13:08] VITALS: BP 130/72; PULSE 76; RESP 13; TEMP 36.3; O2SAT 96; BMI 34.6
== END 2025-02-08 14:13 | disposition home or self-care (01) ==
LOC: HO.HMCFM 13:00
PROVIDERS: PCP Nurse Practitioner Family; Visit Provider Nurse Practitioner Family
DX: Z23 Encounter for immunization (principal)

== ENCOUNTER → 2025-02-08 12:59 | Outpatient (BNVA) | payer MEDICARE, SELFPAY | PROVIDERS: PCP Nurse Practitioner Family; Visit Provider Nurse Practitioner Family | DX: Z23 Encounter for immunization (principal); Z00.00 Encounter for general adult medical examination without abnormal findings; M85.80 Other specified disorders of bone density and structure, unspecified site; N39.3 Stress incontinence (female) (male); L98.9 Disorder of the skin and subcutaneous tissue, unspecified; R73.03 Prediabetes; M47.812 Spondylosis without myelopathy or radiculopathy, cervical region; K21.9 Gastro-esophageal reflux disease without esophagitis; I10 Essential (primary) hypertension; E78.2 Mixed hyperlipidemia; G43.009 Migraine without aura, not intractable, without status migrainosus; J45.20 Mild intermittent asthma, uncomplicated; E55.9 Vitamin D deficiency, unspecified; Z71.89 Other specified counseling | CPT/HCPCS: 90471; 90715; 93005; 96127; 99212 ==

== ENCOUNTER 2025-04-10 08:46 | Outpatient (REF) | payer MEDICARE, OTHER, SELFPAY ==
--- NOTE | ~2025-04-10 | MM_ITS ---
EXAMINATION: BONE DENSITOMETRY CLINICAL INDICATION: Screening for osteoporosis. COMPARISON: This is the patient's baseline examination. TECHNIQUE: Using a Bidstalk dual-energy x-ray absorptiometry was performed of the lumbar spine and left hip. The images are of good technical quality. Summary results are attached. FINDINGS: AP SPINE L1-L4: BMD 1.48 g/cm2, Z-score 2.6, T-score 3.5, AP spine: L3 BMD 1.784 g/cm2, Z score 5.4, T score 4.4 LEFT FEMUR, NECK: BMD 1.104 G/cm2, Z-score 1.7, T-score 0.5, . Average left proximal femur: BMD 1.217g/cm2, Z score 2.6, T score 1.7. IDENTIFIED RISK FACTORS: None listed. HISTORY OF FRACTURE: None listed. MEDICATIONS: None listed. MM/XR DEXA axial skeleton IMPRESSION: 1. DIAGNOSIS: Normal bone mineral density based on the lowest T-score value of 0.5 in the left femoral neck applying World Health Organization criteria. 2. Treatment Recommendations: NOF guidelines recommend consideration for treatment in postmenopausal women and men age 50 and older presenting with the following: -A hip or vertebral (clinical or morphometric) fracture. -T-score less than or equal to -2.5 at the femoral neck or spine after appropriate evaluation to exclude secondary causes. -Low bone mass at the hip or spine and a 10-year fracture probability by FRAX of greater than or equal to 3% for hip fracture or greater than or equal to 20% for major osteoporotic fracture based on the [place] adapted WHO algorithm. FUTURE SCAN RECOMMENDATION: People with diagnosed cases of osteoporosis or at high risk for fracture should have regular bone mineral density tests. For patients eligible for Medicare, routine testing is allowed once every 2 years. The testing frequency can be increased to one year for patients who have rapidly progressing disease, those who are receiving or discontinuing medical therapy to restore bone mass, or have additional risk factors. Electronically signed by: Aaron Antonio MD 04/11/2025 07:29 AM EDT
--- NOTE | ~2025-04-10 | MM_ITS ---
EXAMINATION: MM SCREENING DIGITAL BREAST TOMOSYNTHESIS, BILATERAL CLINICAL INFORMATION: Screening. Asymptomatic. COMPARISON: Mammography: Comparison is made with available priors TECHNIQUE: Digital breast mammography with tomosynthesis is performed in both the craniocaudal and mediolateral oblique views along with computer-aided detection (CAD). FINDINGS: There are scattered areas of fibroglandular density (ACR BI-RADS breast composition Category b). There are no significant masses, abnormal calcifications, or other abnormalities. MM/MM tomosynthesis screening BI IMPRESSION: No mammographic evidence of malignancy. ASSESSMENT: BI-RADS BI-RADS 1 - Negative RECOMMENDATION: Routine annual mammography screening. 1 year F/U This examination should not preclude the clinical evaluation of a suspicious palpable abnormality. This patient's information was entered into a reminder system with a target due date for their next mammogram. Electronically signed by: Leora Murray DO 04/21/2025 08:41 PM EDT
== END 2025-04-10 08:47 | disposition home or self-care (01) ==
LOC: HO.MAMMO 08:46
PROVIDERS: PCP Nurse Practitioner Family; Visit Provider Nurse Practitioner Family
DX: Z12.31 Encounter for screening mammogram for malignant neoplasm of breast (principal); Z13.820 Encounter for screening for osteoporosis; M85.80 Other specified disorders of bone density and structure, unspecified site; Z78.0 Asymptomatic menopausal state
CPT/HCPCS: 77063; 77067; 77080

== ENCOUNTER → 2025-04-10 09:15 | Outpatient (BNV) | payer MEDICARE, OTHER, SELFPAY | PROVIDERS: PCP Nurse Practitioner Family; Visit Provider Radiology Diagnostic Radiology | DX: E28.39 Other primary ovarian failure (principal) | CPT/HCPCS: 77080 ==

== ENCOUNTER 2025-06-28 08:44 | Outpatient (AMB) | payer MEDICARE, OTHER, SELFPAY ==
--- NOTE | 2025-06-28 08:54 | A.OFFVIS_ITS ---
Intake Visit Reasons: stress incontinence Intake Note: Patient is present for STRESS INCONTINENCE Urology Medication:NONE Antibiotic Allergy:AZITHROMYCIN,BACTRIUM,SULFA Blood Thinner:NONE TODAY'S PVR 0ML'S Laser Specialist Required: No Allergies azithromycin Allergy (Severe, Verified 06/28/25 08:55) Facial Swelling sulfamethoxazole (From Bactrim) Allergy (Severe, Verified 06/28/25 08:55) Gastrointestinal Upset trimethoprim (From Bactrim) Allergy (Severe, Verified 06/28/25 08:55) Gastrointestinal Upset HPI Comments Details: 06/28/25-- History of Present Illness The patient is a 69-year-old female presenting with stress urinary incontinence. The condition has been ongoing for approximately ten years, with symptoms triggered by actions such as coughing, sneezing, and lifting heavy objects. The patient reports that the leakage is not substantial but occurs frequently enough to be bothersome. The patient has not previously sought treatment for this condition until her new primary care physician recommended a urological evaluation. She has not been on any medications for urinary incontinence prior to this visit. The patient has a history of allergic rhinitis, for which she takes Zyrtec and uses a nasal spray as needed. She experiences year-round symptoms and has had recurrent ear infections in the past, which are managed with consistent use of nasal sprays. The patient has a history of osteoarthritis and receives infusions every other month for her condition. She also has a history of cervical ablation performed approximately 20 years ago due to heavy menstrual bleeding. Plan 1. Urinary Incontinence - Initiate Myrbetriq 50 mg for management of urinary urgency and frequency. - Order an ultrasound of the kidneys and bladder to rule out any anatomical abnormalities. - Refer to pelvic floor physical therapy for muscle strengthening exercises. - FU further evaluation pelvic exam and possible cystoscopy. 2. Allergic Rhinitis, Comorbitiy, pt has episodes of sneezing daily [facility] Medical History History of echocardiogram (~2019) History of screening mammography (~2022) GERD (gastroesophageal reflux disease) Arthritis HTN (hypertension) Sinusitis Asthma Surgical History History of esophagogastroduodenoscopy (EGD) (~08/2020) History of colonoscopy (~03/2023) H/O shoulder surgery Family History Sister HTN (hypertension) Diabetes Brother HTN (hypertension) Diabetes Maternal Grandfather Diabetes Brother Diabetes Social History Household Members: Family and Children Both parents involved: No Caregiver staying overnight: No Housing: House Are you a primary career professional to a significant other at home: No Do you presently have visiting nurse or other home services: No 75 years or older and lives alone: No Alcohol intake: current Alcohol intake frequency: a few times a month Patient Tobacco Use Status: Never used Tobacco e-Cigarette/Vaping Use: Never Used Second Hand Smoke Exposure: No Current occupational status: retired Cognitive needs: No Hearing needs: No Vision needs: Yes (wear glasses) Review of Systems Const All systems reviewed & are unremarkable except as noted in HPI and below Reports no additional complaints Eyes Reports no additional complaints ENT Reports no additional complaints Card Reports no additional complaints Resp Reports no additional complaints GI Reports no additional complaints Reports as per HPI Musc Reports no additional complaints Skin/Breast Reports system reviewed and no additional complaints, except as documented Neuro Reports no additional complaints Psych Reports no additional complaints Endo Reports no additional complaints Chano/Lymph Reports no additional complaints Aller/Immun Reports no additional complaints Physical Exam Const General: cooperative, healthy appearing and no acute distress Nutritional Appearance: overweight Orientation/consciousness: patient oriented x3 HEENT Head: Yes normal to inspection, Yes normocephalic and Yes atraumatic Eyes Conjunctivae: conjunctivae normal Neck Neck: Yes normal visual inspection and Yes trachea midline Chest Chest palpation & inspection: normal inspection of the chest Resp Effort & Inspection: normal respiratory effort GI Inspection: Yes normal to inspection Neuro General: patient oriented x3 Psych Appearance: grossly normal Office Procedures Post Void Residual Post Residual Void Post Void Residual (PVR): 0 [id number] Void Residual by ultrasound Results AMB Urinalysis, Automated UA Leukoctes 0 Tobin/uL Last Edit by Ronda Tinsley on 06/28/25 17:04 UA Nitrite Negative Last Edit by Ronda Tinsley on 06/28/25 17:04 UA Urobilinogen 0.2 mg/dL Last Edit by Ronda Tinsley on 06/28/25 17:04 UA Protein 0 mg/dL Last Edit by Ronda Tinsley on 06/28/25 17:04 UA pH 6.0 Last Edit by Ronda Tinsley on 06/28/25 17:04 UA Blood 0 Iván/uL Last Edit by Ronda Tinsley on 06/28/25 17:04 UA Specific [place] 1.020 Last Edit by Ronda Tinsley on 06/28/25 17:04 UA Ketone Negative Last Edit by Ronda Tinsley on 06/28/25 17:04 UA Bilirubin 0 mg/dL Last Edit by Ronda Tinsley on 06/28/25 17:04 UA Glucose 0 mg/dL Last Edit by Ronda Tinsley on 06/28/25 17:04 Results Reviewed Results Reviewed: Laboratory Last Values Urine pH (Auto) 6.0 06/28/25 08:57 Specific [place] (Auto) 1.020 06/28/25 08:57 Urine Protein (Auto) 0 mg/dL 06/28/25 08:57 Glucose (UA)(Auto) 0 mg/dL 06/28/25 08:57 Urine Ketones (Auto) Negative 06/28/25 08:57 Urine Blood (Auto) 0 Iván/uL 06/28/25 08:57 Urine Nitrite (Auto) Negative 06/28/25 08:57 Urine Bilirubin (Auto) 0 mg/dL 06/28/25 08:57 Urine Urobilinogen (Auto) 0.2 mg/dL 06/28/25 08:57 Leukocyte Esterase (Auto) 0 Tobin/uL 06/28/25 08:57 Assessment & Plan Assessment & Plan (1) Urine, incontinence, stress female: Code(s): N39.3 - Stress incontinence (female) (male) Category: Medical (2) Urinary urgency: Code(s): R39.15 - Urgency of urination Category: Medical Plan Plan 1. Urinary Incontinence - Initiate Myrbetriq 50 mg for management of urinary urgency and frequency. - Order an ultrasound of the kidneys and bladder to rule out any anatomical abnormalities. - Refer to pelvic floor physical therapy for muscle strengthening exercises. - FU further evaluation pelvic exam and possible cystoscopy. 2. Allergic Rhinitis, Comorbitiy, pt has episodes of sneezing daily Orders: Orders PT Evaluation and Treatment 06/28/25 N39.3 - Stress incontinence (female) (male) AMB Urinalysis Automated 06/28/25 Z13.9 - Encounter for screening, unspecified Medications: New mirabegron ER (Myrbetriq) 50 mg PO DAILY 30 tabs 3RF Patient Instructions: The patient had an opportunity to ask questions regarding treatment plan. The patient expressed understanding and agreement with the above treatment plan. The patient is aware they should contact our office by phone for worsening of their current condition or the appearance of new symptoms. Compliance is enc ouraged with any medications and followup testing that is ordered. It is a privilege to be allowed the opportunity to participate in the urologic care of your patient. If you have any questions or concerns regarding treatment for the above conditions please do not hesitate to contact me. The office telephone contact is [phone]. This note is constructed in part using voice recognition software. While every effort has been made to ensure accuracy security systems specialist errors may have been included. Yours sincerely, Jessica Rico MD Scribe Plan - Not visible on output: Patient was informed and verbally consented to the use of an ambient scribe for clinic note documentation during this visit. Coding Level of Care Code New Pt Level 4 (95578) Diagnoses Urine, incontinence, stress female N39.3 Urinary urgency R39.15 CPT Codes Post Residual Void - PVR CPT Code: 73422-Nmzq Void Residual by ultrasound ([id number])
--- OUTSIDE RECORDS SUMMARY | 2025-06-28 09:21 | XMS_ITS | Encounter Summary ---
Author Organization [facility] Address [address] [place] [id number] Phone Care Team Providers Care Pattern Attendant Name Role Phone Linda Holloway MD Unavailable [phone] Kenisha Flores MD Unavailable + Salena Cardenas MD Unavailable [phone] Shay Dao MD Unavailable [phone] Farnaz Aranda Primary Care Provider [phone] Casey Lofton MD Unavailable Unavailabl e Barbara Monroy MD Primary Care Provider Encounter Details Date Type Department Care Team (Late st Contact Info) Description 04/10/2020 Procedure Pass [facility] Endoscopy Admitting Dept [facility] Department [address] [place] [id number] Social History Tobacco Use Types Packs/Day Years Used Date Smoking Tobacco: Never Smokeless Tobacco: Never Alcohol Use Standard Drinks/Week Comments Yes 0 (1 standard drink = 0.6 oz pur e alcohol) rare Comments No Sex and Gender Information Value Date Recorded Sex Assigned at Female 02/13/2020 10:52 AM EDT Legal Sex Female 9:55 PM EDT Gender Identity Female 02/13/2020 10:52 AM EDT Sexual Orientation Straight 10/15/2024 10 :44 AM EST documented as of this encounter Plan of Treatment Not on file documented as of this encounter Visit Diagnoses Not on filedocumented in this encounter Care Teams Pattern Attendant Relationship Specialty Start Date End Date Farnaz Aranda PA [address] [place] [address] [email or web address] PCP - General Unknown Provider Specialty 07/23/19 01/21/22 Barbara Monroy MD [address] [place] [address] PCP - General Internal Medicine 01/22/22 Linda Holloway MD [address] [address] [email or web address] Historical LMR Provider 07/25/17 10/17/21 Kenisha Flores MD [address] [place] [address] [email or web address] Historical LMR Provider 07/25/17 10/17/21 Salena Cardenas MD [address] [address] [email or web address] Historical LMR Provider 07/25/17 10/17/21 Shay Dao MD [address] [place] [address] Historical LMR Provider 07/25/17 10/17/21 Casey Lofton MD Gastroenterology 02/14/20 documented as of this encounter Additional Source Comments The information contained in this document represents components of the legal health record. It is not the complete legal health record.[facility]
--- OUTSIDE RECORDS SUMMARY | 2025-06-28 09:21 | XMS_ITS | Encounter Summary ---
Author Organization [facility] Address [address] [place] [address] Phone Care Team Providers Care Firewall Security Engineer Name Role Phone Linda Holloway MD Unavailable [phone] Kenisha Flores MD Unavailable + Salena Cardenas MD Unavailable [phone] Shay Dao MD Unavailable [phone] Farnaz Aranda Primary Care Provider [phone] Casey Lofton MD Unavailable Unavailabl e Barbara Monroy MD Primary Care Provider [phone] Reason for Referral * MRI/CAT Scan - Closed Specialty Diagnoses / Procedures Referred By Clarice t Referred To Contact Radiology Diagnoses Chronic cough Procedures CT Chest Farnaz Aranda PA Phone: tel: fax: [email or web address] Referral ID Status Reason Start Date Expiration Date Visits Re quested Visits Authorized [id number] Closed 07/15/2020 01/13/2021 1 1 Encounter Details Date Type Department Care Team (Late st Contact Info) Description 07/15/2020 Ancillary Orders [facility] Department [address] [place] [address] Farnaz Aranda PA [address] [place] [id number] [email or web address] Chronic cough Social History Tobacco Use Types Packs/Day Years [...] on file documented as of this encounter Results * CT CHEST WITH CONTRAST (07/18/2020 3:34 PM EDT) Anatomical Region Laterality Modality Chest Computed Tomogra phy 07/18/2020 4:00 PM EDT Impressions 07/18/2020 4:17 PM EDT 1.No definite findings to account for the patient's chronic cough. 2.Bilateral sub-5 mm pulmonary nodules which are likely benign. CT surveillance in 12 months could be obtained if the patient has risk factors per Fleischner guidelines. 3.1.3 cm inferior central left breast nodular asymmetry. Correlate with physical exam, mammography and ultrasound. 4.Mild bilateral axillary lymphadenopathy which is likely reactive/inflammatory (dominant lymph node-1.2 cm left axilla). Clinical follow-up recommended. 5.Chronic hepatic steatosis. 6.Additional findings as above. N.B.: Calcification in the coronary arteries does not in itself have a high positive predictive value for near term cardiac events; however, in the appropriate clinical setting it may be an indication for further evaluation or cardiology consultation depending on the patients cardiac risk factors. Narrative 07/18/2020 4:17 PM EDT COMPARISON: CT abdomen pelvis 02/13/2020. Chest x-ray 12/07/2019. TECHNIQUE: CT chest with IV contrast. Multiplanar reformatted images generated. Automated exposure control utilized. CT CHEST FINDINGS: Cardiovascular: Heart is normal in size. No pericardial effusion. No coronary artery calcified plaque identified. Mild thoracic aortic calcified plaque. No acute findings or aneurysm. Main pulmonary artery outflow tract is normal in size. No findings suspicious for embolism. Mediastinum: Stable mild distal esophageal wall thickening which may be due to esophagitis. No hiatal hernia. No enlarged mediastinal or hilar lymph nodes. Upper Abdomen: No acute findings. Stable mild diffuse hepatic low-attenuation indicative of steatosis. Chest wall/Thoracic inlet: Mild thyromegaly. No nodules. No enlarged supraclavicular lymph nodes. Multiple bilateral subcentimeter axillary and subpectoral lymph nodes and 1.2 cm cm left axillary lymph node which are likely inflammatory/reactive. Follow-up clinically. No bulky adenopathy. The small nodular asymmetry in the inferior central left breast measuring 1.3 cm. No correlate on prior recent mammography in 2018. Musculoskeletal: Mild diffuse thoracic spine endplate spurring. No significant degenerative changes. No compression fractures. No destructive or suspicious bone lesions. Lungs: No airway masses or bronchiectasis. No pulmonary masses, consolidation or pleural effusions. There is a cluster of sub-5 mm posterior right lower lobe pulmonary nodules not imaged previously and new sub-5 mm left lower lobe pulmonary nodule. No suspicious nodules. Procedure Note Aki Reinoso MD - 07/18/2020 COMPARISON: CT abdomen pelvis 02/13/2020. Chest x-ray 12/07/2019. TECHNIQUE: CT chest with IV contrast. Multiplanar reformatted imagesgenerated. Automated exposure control utilized. CT CHEST FINDINGS: Cardiovascular: Heart is normal in size. No pericardial effusion. Nocoronary artery calcified plaque identified. Mild thoracic aorticcalcified plaque. No acute findings or aneurysm. Main pulmonary arteryoutflow tract is normal in size. No findings suspicious for embolism. Mediastinum: Stable mild distal esophageal wall thickening which may bedue to esophagitis. No hiatal hernia. No enlarged mediastinal or hilarlymph nodes. Upper Abdomen: No acute findings. Stable mild diffuse hepaticlow-attenuation indicative of steatosis. Chest wall/Thoracic inlet: Mild thyromegaly. No nodules. No enlargedsupraclavicular lymph nodes. Multiple bilateral subcentimeter axillary andsubpectoral lymph nodes and 1.2 cm cm left axillary lymph node which arelikely inflammatory/reactive. Follow-up clinically. No bulky adenopathy.The small nodular asymmetry in the inferior central left breast measuring1.3 cm. No correlate on prior recent mammography in 2018. Musculoskeletal: Mild diffuse thoracic spine endplate spurring. Nosignificant degenerative changes. No compression fractures. No destructiveor suspicious bone lesions. Lungs: No airway masses or bronchiectasis. No pulmonary masses,consolidation or pleural effusions. There is a cluster of sub-5 mmposterior right lower lobe pulmonary nodules not imaged previously and newsub-5 mm left lower lobe pulmonary nodule. No suspicious nodules. IMPRESSION: 1.No definite findings to account for the patient's chronic cough. 2.Bilateral sub-5 mm pulmonary nodules which are likely benign. CTsurveillance in 12 months could be obtained if the patient has riskfactors per Fleischner guidelines. 3.1.3 cm inferior central left breast nodular asymmetry. Correlate withphysical exam, mammography and ultrasound. 4.Mild bilateral axillary lymphadenopathy which is likelyreactive/inflammatory (dominant lymph node-1.2 cm left axilla). Clinicalfollow-up recommended. 5.Chronic hepatic steatosis. 6.Additional findings as above. N.B.: Calcification in the coronary arteries does not in itself have ahigh positive predictive value for near term cardiac events; however, inthe appropriate clinical setting it may be an indication for furtherevaluation or cardiology consultation depending on the patients cardiacrisk factors. Farnaz LOGAN IMG CT CHEST Final Result documented in this encounter Visit Diagnoses Diagnosis Chronic cough Cough Chronic cough Cough documented in this encounter Care Teams Firewall Security Engineer Relationship Specialty Start Date End Date Farnaz Aranda PA [address] [place] [id number] PCP - General Unknown Provider Specialty 07/23/19 01/21/22 Barbara Monroy MD [address] [place] [address] PCP - General Internal Medicine 01/22/22 Linda Holloway MD 15 [facility], 2nd [place] [address] [email or web address] Historical LMR Provider 07/25/17 10/17/21 Kenisha Flores MD [address] [place] [address] [email or web address] Historical LMR Provider 07/25/17 10/17/21 Salena Cardenas MD [address] [address] [email or web address] Historical LMR Provider 07/25/17 10/17/21 Shay Dao MD [address] [place] [address] Historical LMR Provider 07/25/17 10/17/21 Casey Lofton MD Gastroenterology 02/14/20 documented as of this encounter Additional Source Comments The information contained in this document represents components of the legal health record. It is not the complete legal health record.[facility]
--- OUTSIDE RECORDS SUMMARY | 2025-06-28 09:21 | XMS_ITS | Encounter Summary ---
Author Organization [facility] Address [address] [place] [address] Phone Care Team Providers Care Welder Railcar Mechanic Name Role Phone Linda Holloway MD Unavailable [phone] Kenisha Flores MD Unavailable + Salena Cardenas MD Unavailable [phone] Shay Dao MD Unavailable [phone] Farnaz Aranda Primary Care Provider [phone] Casey Lofton MD Unavailable Unavailabl e Barbara Monroy MD Primary Care Provider Encounter Details Date Type Department Care Team (Latest Contact Info) Description 07/15/2020 Transcribe Orders [facility] Specimen Processing [address] [place] [address] Farnaz Aranda PA [address] [place] [address] [email or web address] Elevated glucose (Primary Dx) Social History Tobacco Use Types Packs/Day Years [...] documented as of this encounter Visit Diagnoses Diagnosis Elevated glucose- Primary Other abnormal glucose documented in this encounter Care Teams Welder Railcar Mechanic Relationship Specialty Start Date End Date Farnaz Aranda PA [address] [place] [phone] [email or web address] PCP - General Unknown Provider Specialty 07/23/19 01/21/22 Barbara Monroy MD [address] [place] [address] PCP - General Internal Medicine 01/22/22 Linda Holloway MD 15 [facility], [address] [place] [address] Historical LMR Provider 07/25/17 10/17/21 Kenisha Flores MD [address] [place] [address] [email or web address] Historical LMR Provider 07/25/17 10/17/21 Salena Cardenas MD [address] [address] [email or web address] Historical LMR Provider 07/25/17 10/17/21 Shay Dao MD [address] [place] [address] Historical LMR Provider 07/25/17 10/17/21 Casey Lofton MD Gastroenterology 02/14/20 documented as of this encounter Additional Source Comments The information contained in this document represents components of the legal health record. It is not the complete legal health record.[facility]
--- OUTSIDE RECORDS SUMMARY | 2025-06-28 09:21 | XMS_ITS | Encounter Summary ---
Author Organization [facility] Address [address] [place] [address] Phone Care Team Providers Care Admission Discharge Rn Name Role Phone Linda Holloway MD Unavailable [phone] Kenisha Flores MD Unavailable + Salena Cardenas MD Unavailable [phone] Shay Dao MD Unavailable [phone] Farnaz Aranda Primary Care Provider [phone] Casey Lofton MD Unavailable Unavailabl e Barbara Monroy MD Primary Care Provider [phone] Encounter Details Date Type Department Care Team (Late st Contact Info) Description 08/06/2020 Procedure Pass [facility], [address] [address] Social History Tobacco Use Types Packs/Day Years [...] on filedocumented in this encounter Care Teams Admission Discharge Rn Relationship Specialty Start Date End Date Farnaz Aranda PA 15 [place] [address] [email or web address] PCP - General Unknown Provider Specialty 07/23/19 01/21/22 Barbara Monroy MD 15 [place] [address] PCP - General Internal Medicine 01/22/22 Linda Holloway MD [address] [address] Historical LMR Provider 07/25/17 10/17/21 Kenisha Flores MD [address] [place] [address] [email or web address] Historical LMR Provider 07/25/17 10/17/21 Salena Cardenas MD [address] [address] [email or web address] Historical LMR Provider 07/25/17 10/17/21 Shay Dao MD [address] [place] [address] Historical LMR Provider 07/25/17 10/17/21 Casey Lofton MD Gastroenterology 02/14/20 documented as of this encounter Additional Source Comments The information contained in this document represents components of the legal health record. It is not the complete legal health record.[facility]
--- OUTSIDE RECORDS SUMMARY | 2025-06-28 09:21 | XMS_ITS | Encounter Summary ---
Author Organization [facility] Address [address] [place] [address] Phone Care Team Providers Care Media Manager Name Role Phone Linda Holloway MD Unavailable [phone] Kenisha Flores MD Unavailable + Salena Cardenas MD Unavailable [phone] Shay Dao MD Unavailable [phone] Farnaz Aranda Primary Care Provider [phone] Casey Lofton MD Unavailable Unavailabl e Barbara Monroy MD Primary Care Provider Encounter Details Date Type Department Care Team (Late st Contact Info) Description 07/07/2020 Transcribe Orders [facility] [address] [place] [address] Farnaz Aranda PA 15 [place] [address] [email or web address] Social History Tobacco Use Types Packs/Day Years [...] on filedocumented in this encounter Care Teams Media Manager Relationship Specialty Start Date End Date Farnaz Aranda PA [address] [place] [address] [email or web address] PCP - General Unknown Provider Specialty 07/23/19 01/21/22 Barbara Monroy MD [address] [place] [email or web address] PCP - General Internal Medicine 01/22/22 Linda Holloway MD 15 [facility], [address] [place] [address] Historical LMR Provider 07/25/17 10/17/21 Kenisha Folres MD [address] [place] [address] [email or web address] Historical LMR Provider 07/25/17 10/17/21 Salena Cardenas MD [address] [address] [email or web address] Historical LMR Provider 07/25/17 10/17/21 Shay Dao MD [address] [place] [address] Historical LMR Provider 07/25/17 10/17/21 Casey Lofton MD Gastroenterology 02/14/20 documented as of this encounter Additional Source Comments The information contained in this document represents components of the legal health record. It is not the complete legal health record.[facility]
--- OUTSIDE RECORDS SUMMARY | 2025-06-28 09:21 | XMS_ITS | Encounter Summary ---
Author Organization [facility] Address [address] [place] [address] Phone Care Team Providers Care Technical Buyer Name Role Phone Casey Lofton MD Unavailable [facility] e Barbara Monroy MD Primary Care Provider [phone] Encounter Details Date Type Department Care Team (Late st Contact Info) Description 01/14/2023 Procedure Pass [facility], [address] [address] Social History Tobacco Use Types Packs/Day Years Used Date Smoking Tobacco: Never Smokeless Tobacco: Never Alcohol Use Standard Drinks/Week Comments Yes 0 (1 standard drink = 0.6 oz pur e alcohol) rarely Comments No Sex and Gender Information Value [...] on filedocumented in this encounter Care Teams Technical Buyer Relationship Specialty Start Date End Date Barbara Monroy MD [address] [place] [address] [phone] [email or web address] PCP - General Internal Medicine 01/22/22 Casey Lofton MD Gastroenterology 02/14/20 documented as of this encounter Additional Source Comments The information contained in this document represents components of the legal health record. It is not the complete legal health record.[facility]
--- OUTSIDE RECORDS SUMMARY | 2025-06-28 09:21 | XMS_ITS | Encounter Summary ---
Author Organization [facility] Address [address] [place] [address] Phone Care Team Providers Care Therapeutic Assistant Name Role Phone Linda Holloway MD Unavailable [phone] Kenisha lFores MD Unavailable + Salena Cardenas MD Unavailable [phone] Shay Dao MD Unavailable [phone] Farnaz Aranda Primary Care Provider [phone] Casey Lofton MD Unavailable Unavailabl e Barbara Monroy MD Primary Care Provider [phone] Encounter Details Date Type Department Care Team (Late st Contact Info) Description 07/30/2020 Procedure Pass [facility] 30 [place] [address] Social History Tobacco Use Types Packs/Day Years [...] on filedocumented in this encounter Care Teams Therapeutic Assistant Relationship Specialty Start Date End Date Farnaz Aranda PA 15 [place] [address] [email or web address] PCP - General Unknown Provider Specialty 07/23/19 01/21/22 Barbara Monroy MD 15 [place] [address] [email or web address] PCP - General Internal Medicine 01/22/22 Linda Holloway MD 15 [facility] [place] [address] Historical LMR Provider 07/25/17 10/17/21 Kenisha Flores MD [address] [place] [address] [email or web address] Historical LMR Provider 07/25/17 10/17/21 Salena Cardenas MD [address] [address] [email or web address] Historical LMR Provider 07/25/17 10/17/21 Shay Dao MD [address] [place] [address] Historical LMR Provider 07/25/17 10/17/21 Casey Lofton MD Gastroenterology 02/14/20 documented as of this encounter Additional Source Comments The information contained in this document represents components of the legal health record. It is not the complete legal health record.[facility]
--- OUTSIDE RECORDS SUMMARY | 2025-06-28 09:21 | XMS_ITS | Encounter Summary ---
Author Organization [facility] Address [address] [place] [address] Phone Care Team Providers Care Brine Mixer Operator Name Role Phone Casey Lofton MD [facility] Barbara Dumont MD Primary Care Provider [phone] Reason for Referral * MRI/CAT Scan - Closed Specialty Diagnoses / Procedures Referred By Clarice [email or web address] Referred To Contact Radiology Diagnoses Pulmonary nodule Procedures CT Chest CHG DIAGNOSTIC COMPUTED TOMOGRAPHY THORAX W/CONTRAST CHG DIAGNOSTIC COMPUTED TOMOGRAPHY THORAX W/O CNTRST Farnaz Aranda PA Phone: tel: fax: [email or web address] Referral ID Status Reason Start Date Expiration Date Visits Re quested Visits Authorized [id number] Closed 01/19/2023 07/18/2023 1 1 Encounter Details Date Type Department Care Team (Latest Contact Info) Description 01/13/2023 Transcribe Orders Virtual Department 30 [place] [address] Farnaz Aranda PA 15 [place] [address] [email or web address] Pulmonary nodule (Primary Dx) Social History Tobacco Use Types [...] of this encounter Results * CT CHEST WITHOUT CONTRAST (01/31/2023 2:13 PM EDT) Anatomical Region Laterality Modality Chest Computed Tomogra phy 02/01/2023 3:33 PM EDT Impressions 02/01/2023 3:44 PM EDT Interval resolution of previously demonstrated pulmonary nodules. No new pulmonary nodules demonstrated. Narrative 02/01/2023 3:[address] CHEST WITHOUT CONTRAST TECHNIQUE: Multidetector CT of the chest was performed without intravenous contrast using tailored dose modulation. COMPARISON: CT chest 01/25/2022 FINDINGS: Devices/Tubes/Lines: None. Lungs: The previously demonstrated pulmonary nodules are no longer visualized. No new pulmonary nodules is intervally developed. There is no focal consolidation. The central airways are clear. Pleura: No pleural effusion or pneumothorax. Mediastinum: Atherosclerotic calcification of the aorta and major aortic branch vessels. No thyroid nodules. The heart is similar in size. There is no pericardial effusion. Minimal amount of coronary calcifications. Lymph Nodes: No enlarged supraclavicular, axillary, mediastinal, or hilar lymph nodes. Upper Abdomen: Small hiatal hernia. Atherosclerotic calcification of the proximal abdominal aorta. Absence of intravenous contrast limits sensitivity for detecting solid organ findings. Chest Wall: Limited evaluation of the breast parenchyma by CT. No chest wall mass. Bones: Multilevel degenerative changes of the spine. No destructive osseous lesions. Procedure Note Eliana Chavez MD - 02/01/2023 CT CHEST WITHOUT CONTRAST TECHNIQUE: Multidetector CT of the chest was performed without intravenouscontrast using tailored dose modulation. COMPARISON: CT chest 01/25/2022 FINDINGS: Devices/Tubes/Lines: None. Lungs: The previously demonstrated pulmonary nodules are no longervisualized. No new pulmonary nodules is intervally developed. There is nofocal consolidation. The central airways are clear. Pleura: No pleural effusion or pneumothorax. Mediastinum: Atherosclerotic calcification of the aorta and major aorticbranch vessels. No thyroid nodules. The heart is similar in size. There isno pericardial effusion. Minimal amount of coronary calcifications. Lymph Nodes: No enlarged supraclavicular, axillary, mediastinal, or hilarlymph nodes. Upper Abdomen: Small hiatal hernia. Atherosclerotic calcification of theproximal abdominal aorta. Absence of intravenous contrast limitssensitivity for detecting solid organ findings. Chest Wall: Limited evaluation of the breast parenchyma by CT. No chestwall mass. Bones: Multilevel degenerative changes of the spine. No destructiveosseous lesions. IMPRESSION: Interval resolution of previously demonstrated pulmonary nodules. No newpulmonary nodules demonstrated. Farnaz LOGAN IMG CT CHEST Final Result documented in this encounter Visit Diagnoses Diagnosis Pulmonary nodule- Primary Other diseases of lung, not elsewhere classified Pulmonary nodule Other diseases of lung, not elsewhere classified documented in this encounter Care Teams Brine Mixer Operator Relationship Specialty Start Date End Date Barbara Monroy MD [address] [place] [address] [email or web address] PCP - General Internal Medicine 01/22/22 Casey Lofton MD Gastroenterology 02/14/20 documented as of this encounter Additional Source Comments The information contained in this document represents components of the legal health record. It is not the complete legal health record.[facility]
--- OUTSIDE RECORDS SUMMARY | 2025-06-28 09:21 | XMS_ITS | Encounter Summary ---
Author Organization [facility] Address [address] [place] [address] Phone Care Team Providers Care Production Weigher Name Role Phone Linda Holloway MD Unavailable [phone] Kenisha Flores MD Unavailable + Salena Cardenas MD Unavailable [phone] Shay Dao MD Unavailable [phone] Farnaz Aranda Primary Care Provider [phone] Casey Lofton MD Unavailable Unavailabl e Barbara Monroy MD Primary Care Provider [phone] Encounter Details Date Type Department Care Team (Late st Contact Info) Description 07/18/2020 Ancillary Orders Virtual Department 30 [place] [address] Farnaz Aranda PA [address] [place] [address] [email or web address] Breast screening Social History Tobacco Use Types Packs/Day Years [...] as of this encounter Visit Diagnoses Diagnosis Breast screening Breast screening, unspecified documented in this encounter Care Teams Production Weigher Relationship Specialty Start Date End Date Farnaz Aranda PA 15 [place] [address] [email or web address] PCP - General Unknown Provider Specialty 07/23/19 01/21/22 Barbara Monroy MD [address] [place] [email or web address] PCP - General Internal Medicine 01/22/22 Linda Holloway MD [address] [address] Historical LMR Provider 07/25/17 10/17/21 Kenisha Flores MD [address] [place] [address] [email or web address] Historical LMR Provider 07/25/17 10/17/21 Salena Cardenas MD [address] [address] [email or web address] Historical LMR Provider 07/25/17 10/17/21 Shay Dao MD [address] [place] [address] Historical LMR Provider 07/25/17 10/17/21 Casey Lofton MD Gastroenterology 02/14/20 documented as of this encounter Additional Source Comments The information contained in this document represents components of the legal health record. It is not the complete legal health record.[facility]
--- OUTSIDE RECORDS SUMMARY | 2025-06-28 09:21 | XMS_ITS | Encounter Summary ---
Author Organization [facility] Address [address] [place] [address] Phone Care Team Providers Care Stock Repairer Name Role Phone Casey Lofton MD, Christine D MD Primary Care Provider [phone] Encounter Details Date Type Department Care Team (Late st Contact Info) Description 03/10/2023 Procedure Pass [facility] Endoscopy Admitting Dept Virtual Department 30 [place] [address] Social History Tobacco Use Types Packs/Day Years Used Date Smoking Tobacco: Never Smokeless Tobacco: Never Alcohol Use Standard Drinks/Week Comments Yes 0 (1 standard drink = 0.6 oz pur e alcohol) rarely Education Answer Date Recorded Are you interested in more education? Not on yolanda e 02/04/2023 Are you concerned about learning? Not on file 02/04/2023 No 02/04/2023 No 02/04/2023 Digital Access Answer Date Recorded No 03/07/2023 No 03/07/2023 Reliable internet access at home? Not on file 03/07/2023 Device with a working camera? Not on file Intimate Partner Violence Answer Date R ecorded Are you denied basic needs s uch as food, clothing, or medical care? No 03/10/2023 In the past 12 months have y ou been in a relationship with a person who hurts, threatens, or tries to control you? No 03/10/2023 Are you denied basic needs s uch as food, clothing, or medical care? No 03/10/2023 In the past 12 months have y ou been in a relationship with a person who hurts, threatens, or tries to control you? No 03/10/2023 Comments No Sex and Gender Information Value [...] on filedocumented in this encounter Care Teams Stock Repairer Relationship Specialty Start Date End Date Barbara Monroy MD [address] [place] [address] [email or web address] PCP - General Internal Medicine 01/22/22 Casey Lofton MD Gastroenterology 02/14/20 documented as of this encounter Additional Source Comments The information contained in this document represents components of the legal health record. It is not the complete legal health record.[facility]
--- OUTSIDE RECORDS SUMMARY | 2025-06-28 09:21 | XMS_ITS | Encounter Summary ---
Author Organization [facility] Address [address] [place] [address] Phone Care Team Providers Care Crew Manager Name Role Phone Casey Lofton MD Unavailable [facility] e Barbara Monroy MD Primary Care Provider [phone] Encounter Details Date Type Department Care Team (Late st Contact Info) Description 01/13/2023 Procedure Pass [facility], Ct Scan - [address] [address] Social History Tobacco Use Types Packs/Day Years [...] on filedocumented in this encounter Care Teams Crew Manager Relationship Specialty Start Date End Date Barbara Monroy MD [address] [place] [address] [phone] [email or web address] PCP - General Internal Medicine 01/22/22 Casey Lofton MD Gastroenterology 02/14/20 documented as of this encounter Additional Source Comments The information contained in this document represents components of the legal health record. It is not the complete legal health record.[facility]
--- OUTSIDE RECORDS SUMMARY | 2025-06-28 09:21 | XMS_ITS | Encounter Summary ---
Author Organization [facility] Address [address] [place] [address] Phone Care Team Providers Care Abalone Fisherman Name Role Phone Linda Holloway MD Unavailable [phone] Kenisha Flores MD Unavailable + Salena Cardenas MD Unavailable [phone] Shay Dao MD Unavailable [phone] Farnaz Aranda Primary Care Provider [phone] Casey Lofton MD Unavailable Unavailabl e Barbara Monroy MD Primary Care Provider Encounter Details Date Type Department Care Team (Late st Contact Info) Description 08/06/2020 Ancillary Orders Virtual Department 30 [place] [address] Farnaz Aranda PA [address] [place] [address] .Verified Identity Pass Breast nodule Social History Tobacco Use Types Packs/Day Years [...] documented as of this encounter Results * BI US BREAST LIMITED (LEFT) (08/28/2020 2:09 PM EST) Anatomical Region Laterality Modality Breast Left, Breast Bilateral Left Ul trasound 08/28/2020 2:07 PM EST Narrative 08/28/2020 2:07 PM EST Refer to the mammogram report. Procedure Note Aki Reinoso MD - 08/28/2020 Refer to the mammogram report. Farnaz LOGAN IMG US BREAST Final Result * BI MAMMOGRAM DIAGNOSTIC WITH TOMOSYNTHESIS WITH CAD (BILATERAL) (08/28/2020 1:13 PM EST) Anatomical Region Laterality Modality Breast Left, Breast Right, Breast Bilateral Bila teral Mammography 08/28/2020 1:22 PM EST Impressions 08/28/2020 2:24 PM EST No suspicious mass identified. Findings suggestive of focal fibrocystic change at 5:00 in the left breast. No mammographic evidence of malignancy. Recommend return to routine annual surveillance. Findings relayed to the patient via the technologist. BI-RADS CATEGORY: 2 - Benign finding. DENSITY: There are scattered fibroglandular densities. LEFT RECOMMENDATION DATE: 12 Months Left Mammography Screening RIGHT RECOMMENDATION DATE: 12 Months Right Mammography Screening Narrative 08/28/2020 2:24 PM EST 65-year-old female with presents for a 1.3 cm left breast nodule on recent chest CT. Comparison made to previous on 07/23/2019 and as far back as 06/01/2010. Interpretation made in conjunction with computer-aided detection and tomosynthesis. Standard views obtained. There are scattered areas of fibroglandular density. There is a vague nodular focal asymmetry in the lower outer left breast. Additional spot compression views and left ML view obtained. No definite mass identified on the spot compression views. However on the ML view there is a subtle ovoid partially obscured mass measuring 1.2 cm and is 6.2 cm from the nipple. Chronic benign right breast macrocalcification. No right breast findings of concern. No distortion or suspicious calcifications. Left breast ultrasound was obtained. At 5:00 8 cm from the nipple is a ovoid collection of small cysts. No vascularity. It measures up to 1.3 x 1.1 x 0.5 cm. No solid mass identified or suspicious shadowing. Procedure Note Aki Reinoso MD - 08/28/2020 65-year-old female with presents for a 1.3 cm left breast nodule on recentchest CT. Comparison made to previous on 07/23/2019 and as far back as06/01/2010. Interpretation made in conjunction with computer-aideddetection and tomosynthesis. Standard views obtained. There are scattered areas of fibroglandulardensity. There is a vague nodular focal asymmetry in the lower outer leftbreast. Additional spot compression views and left ML view obtained. Nodefinite mass identified on the spot compression views. However on the MLview there is a subtle ovoid partially obscured mass measuring 1.2 cm andis 6.2 cm from the nipple. Chronic benign right breast macrocalcification.No right breast findings of concern. No distortion or suspiciouscalcifications. Left breast ultrasound was obtained. At 5:00 8 cm from the nipple is aovoid collection of small cysts. No vascularity. It measures up to 1.3 x1.1 x 0.5 cm. No solid mass identified or suspicious shadowing. IMPRESSION: No suspicious mass identified. Findings suggestive of focal fibrocysticchange at 5:00 in the left breast. No mammographic evidence of malignancy.Recommend return to routine annual surveillance. Findings relayed to thepatient via the technologist. BI-RADS CATEGORY: 2 - Benign finding. DENSITY: There are scattered fibroglandular densities. LEFT RECOMMENDATION DATE: 12 Months Left Mammography Screening RIGHT RECOMMENDATION DATE: 12 Months Right Mammography Screening Farnaz LOGAN IMG MG EXAMS Final Result documented in this encounter Visit Diagnoses Diagnosis Breast nodule Other (abnormal) findings on radiological examination of breast Breast nodule Other (abnormal) findings on radiological examination of breast Breast nodule Other (abnormal) findings on radiological examination of breast documented in this encounter Care Teams Abalone Fisherman Relationship Specialty Start Date End Date Farnaz Aranda PA 15 [place] [address] .Verified Identity Pass PCP - General Unknown Provider Specialty 07/23/19 01/21/22 Barbara Monroy MD 15 [place] [address] PCP - General Internal Medicine 01/22/22 Linda Holloway MD 15 [facility], [address] [place] [address] Historical LMR Provider 07/25/17 10/17/21 Kenisha Flores MD [address] [place] [address] [email or web address] Historical LMR Provider 07/25/17 10/17/21 Salena Cardenas MD [address] [address] [email or web address] Historical LMR Provider 07/25/17 10/17/21 Shay Dao MD 41 [place] [address] Historical LMR Provider 07/25/17 10/17/21 Casey Lofton MD Gastroenterology 02/14/20 documented as of this encounter Additional Source Comments The information contained in this document represents components of the legal health record. It is not the complete legal health record.[facility]
--- OUTSIDE RECORDS SUMMARY | 2025-06-28 09:21 | XMS_ITS | Encounter Summary ---
Author Organization [facility] Address [address] [place] [address] Phone Care Team Providers Care Manager Immunology Name Role Phone Linda Holloway MD Unavailable [phone] Kenisha Flores MD Unavailable + Salena Cardenas MD Unavailable [phone] Shay Dao MD Unavailable [phone] Farnaz Aranda Primary Care Provider [phone] Casey Lofton MD Unavailable Unavailabl e Barbara Monroy MD Primary Care Provider [phone] Encounter Details Date Type Department Care Team (Late st Contact Info) Description 07/15/2020 Procedure Pass [facility], Ct Scan - [address] [address] Social History Tobacco Use Types Packs/Day Years [...] on filedocumented in this encounter Care Teams Manager Immunology Relationship Specialty Start Date End Date Farnaz Aranda PA 15 [place] [address] [email or web address] PCP - General Unknown Provider Specialty 07/23/19 01/21/22 Barbara Monroy MD 15 [place] [address] PCP - General Internal Medicine 01/22/22 Linda Holloway MD 15 [facility], [facility] [place] [address] Historical LMR Provider 07/25/17 10/17/21 Kenisha Flores MD [address] [place] [address] [email or web address] Historical LMR Provider 07/25/17 10/17/21 Salena Cardenas MD [address] [address] [email or web address] Historical LMR Provider 07/25/17 10/17/21 Shay Dao MD [address] [place] [address] Historical LMR Provider 07/25/17 10/17/21 Casey Lofton MD Gastroenterology 02/14/20 documented as of this encounter Additional Source Comments The information contained in this document represents components of the legal health record. It is not the complete legal health record.[facility]
--- OUTSIDE RECORDS SUMMARY | 2025-06-28 09:21 | XMS_ITS | Encounter Summary ---
Author Organization [facility] Address [address] [place] [address] Phone Care Team Providers Care Heel Former Name Role Phone Casey Lofton MD Unavailable UnavailBarbara Espinosa MD Primary Care Provider [phone] Encounter Details Date Type Department Care Team (Late st Contact Info) Description 02/01/2023 Ancillary Orders [facility], [address] [address] Barbara Monroy MD [address] [place] [address] [email or web address] Abnormal finding on mammography Social History Tobacco Use Types Packs/Day Years Used Date Smoking Tobacco: Never Smokeless Tobacco: Never Alcohol Use Standard Drinks/Week Comments Yes 0 (1 standard drink = 0.6 oz pur e alcohol) rarely Education Answer Date Recorded Are you interested in more education? Not on yolanda e 02/04/2023 Are you concerned about learning? Not on file 02/04/2023 No 02/04/2023 No 02/04/2023 Comments No Sex and Gender Information Value Date Recorded Sex Assigned at Female 02/13/2020 10:52 AM EDT Legal Sex Female 9:55 PM EDT Gender Identity Female 02/13/2020 10:52 AM EDT Sexual Orientation Straight 10/15/2024 10 :44 AM EST documented as of this encounter Plan of Treatment Not on file documented as of this encounter Results * BI MAMMOGRAM DIAGNOSTIC WITH TOMOSYNTHESIS WITH CAD (LEFT) (04/21/2023 1:08 PM EDT) Anatomical Region Laterality Modality Breast Left Left Mammography 04/21/2023 1:11 PM EDT Impressions 04/21/2023 1:17 PM EDT No suspicious findings in the left breast after additional imaging. Return to routine bilateral screening mammography is recommended. The results were relayed to the patient. BI-RADS CATEGORY: 1 - Negative. LEFT RECOMMENDATION DUE DATE: 12 months Left Mammography Screening Narrative 04/21/2023 1:17 PM EDT LEFT mammogram additional imagin-D spot MLO, spot CC and true lateral views of the left breast are compared to the screening study from 01/31/2023. Neither of the areas of asymmetry noted in the central left breast on the screening study persists on today's additional views; both are felt to have been superimposition artifact. No new worrisome findings are identified on today's imaging. Barbara Monroy MD IMG MG EXAMS Final Resul t documented in this encounter Visit Diagnoses Diagnosis Abnormal finding on mammography Abnormal finding on mammography documented in this encounter Care Teams Heel Former Relationship Specialty Start Date End Date Barbara Monroy MD [address] [place] [address] [email or web address] PCP - General Internal Medicine 01/22/22 Casey Lofton MD Gastroenterology 02/14/20 documented as of this encounter Additional Source Comments The information contained in this document represents components of the legal health record. It is not the complete legal health record.[facility]
--- OUTSIDE RECORDS SUMMARY | 2025-06-28 09:21 | XMS_ITS | Encounter Summary ---
Author Organization [facility] Address [address] [place] [address] Phone Care Team Providers Care Learning Disabled Teacher Name Role Phone Linda Holloway MD Unavailable [phone] Kenisha Flores MD Unavailable + Salena Cardenas MD Unavailable [phone] Shay Dao MD Unavailable [phone] Farnaz Aranda Primary Care Provider [phone] Casey Lofton MD Unavailable Unavailabl e Barbara Monroy MD Primary Care Provider Encounter Details Date Type Department Care Team (Late st Contact Info) Description 08/06/2020 Procedure Pass [facility], [address] [address] Social History Tobacco Use Types Packs/Day Years [...] on filedocumented in this encounter Care Teams Learning Disabled Teacher Relationship Specialty Start Date End Date Farnaz Aranda PA 15 [place] [address] [email or web address] PCP - General Unknown Provider Specialty 07/23/19 01/21/22 Barbara Monroy MD 15 [place] [address] PCP - General Internal Medicine 01/22/22 Linda Holloway MD [address] [address] Historical LMR Provider 07/25/17 10/17/21 Kenisha Flores MD [address] [place] [address] [email or web address] Historical LMR Provider 07/25/17 10/17/21 Salena Cardenas MD [address] [address] [email or web address] Historical LMR Provider 07/25/17 10/17/21 Shay Dao MD [address] [place] [address] Historical LMR Provider 07/25/17 10/17/21 Casey Lofton MD Gastroenterology 02/14/20 documented as of this encounter Additional Source Comments The information contained in this document represents components of the legal health record. It is not the complete legal health record.[facility]
--- OUTSIDE RECORDS SUMMARY | 2025-06-28 09:21 | XMS_ITS | Encounter Summary ---
Author Organization [facility] Address [address] [place] [address] Phone Care Team Providers Care Tool And Fixture Repairer Name Role Phone Linda Holloway MD Unavailable [phone] Kenisha Flores MD Unavailable + Salena Cardenas MD Unavailable [phone] Shay Dao MD Unavailable [phone] Farnaz Aranda Primary Care Provider [phone] Casey Lofton MD Unavailable Unavailabl e Barbara Monroy MD Primary Care Provider Reason for Referral * Outpatient Procedure - Closed Specialty Diagnoses / Procedures Referred By Contac t Referred To Contact Diagnoses SOB (shortness of breath) Procedures Adult Echo TTE Farnaz Aranda PA Phone: tel: fax: [email or web address] Referral ID Status Reason Start Date Expiration Date Visits Re quested Visits Authorized [id number] Closed 07/25/2020 07/25/2021 1 1 Encounter Details Date Type Department Care Team (Latest Contact Info) Description 07/25/2020 Transcribe Orders [facility] Department [address] [place] [address] Farnaz Aranda PA 15 [place] [address] [email or web address] SOB (shortness of breath) (Primary Dx) Social History Tobacco Use Types [...] documented as of this encounter Results * TTE COMPREHENSIVE (08/25/2020 9:35 AM EST) Body Surface Area 1.8 m2 Height 158 cm Weight 82 kg Systolic BP 123 mmHg Diastolic BP 63 mmHg Left Atrium Dimension Anterior-Posterior 30 15 - 40 mm Aortic Valve Peak Velocity 134.0 cm/s Aortic Valve Peak Gradient 7 mmHg Aortic Sinus Diameter 28 mm Ascending Aorta Diameter 27 mm Inferior Vena Cava Diameter 18 0.0 - 21 mm Interventricular Septum Thickness 10 mm Left Ventricle Internal Diameter End Diastole 44 37 - 52 mm Left Ventricle Internal Diameter End Systole 24 22 - 35 mm Left Ventricular Outflow Tract Diameter 19.0 mm LVOT VTI REST 212 mm Left Ventricular Outflow Tract Velocity 0.9 m/s Left Ventricular Outflow Tract Gradient at Rest 3 mmHg Left Ventricular Posterior Wall Thickness 10 mm Ejection Fraction 70 50 - 75 Percent Mitral Valve Deceleration Time 190 ms Mitral Valve A Wave Speed 78.4 cm/s Mitral Valve E Wave Speed 69.8 cm/s Right Ventricle Basal Diameter 23.9 25 - 41 mm Raw LV EF% 70 % Left Atrial Volume 34 mL Left Atrial Volume Index 18.89 mL/m2 Right Ventricle TAPSE 23.0 mm Right Ventricle Pulse Doppler S Wave 12.0 cm/s Aortic Valve Sinus Index 1 16 19 - 27 mm Ascending Aorta Diameter 15 mm Aortic Sinus Index 16 mm Ascending Aorta Index 15 mm Anatomical Region Laterality Modality Heart Ultrasound Narrative 08/25/2020 11:44 AM EST This echo was done during normal sinus rhythm. The ejection fraction is normal to hyper normal at 70% there are no regional wall motion abnormalities. There is no evidence of aortic stenosis or mitral regurgitation there is no prior echo available for comparison and there is no pleural effusion or pericardial effusion. The PA pressure on the study was unable to be obtained. Left Ventricle The left ventricular cavity size and wall thickness are normal. Left ventricular systolic function is normal. There are no segmental left ventricular wall motion abnormalities noted. The estimated ejection fraction is 70% (Normal 50-75%). The left ventricular ejection fraction was measured by visual estimate. Left ventricular diastolic function appears within normal limits for age. There is no evidence of left ventricular thrombus. Right Ventricle The right ventricular size is normal. The right ventricular systolic function is normal. Left Atrium The left atrium is normal in size. The left atrial anterior-posterior dimension measures 30 mm (normal 15-40 mm). The LA volume is 34 mL. The LA volume index is 18.89 mL/m2 (normal indexed value is 16-34 mL/m2). The pulmonary venous flow profiles are normal. Right Atrium The right atrium is normal in size. The IVC is normal in size (2.1cm or less). The IVC measures 18 mm (normal <=21 mm). The IVC demonstrates normal collapse with inspiration which is consistent with normal RA pressure. Mitral Valve The mitral valve appears normal. The E/A ratio is 0.9. The Med E' Cole is 6.6 cm/s and the Lat E' Cole is 9.7 cm/s. The E/E' AVG is 8.6. There is no evidence of mitral stenosis. There is trace mitral regurgitation detected by spectral and color Doppler. Tricuspid Valve The tricuspid valve appears normal. There is no evidence of tricuspid stenosis. There is evidence of trace tricuspid regurgitation by color and spectral Doppler. There is an insufficient tricuspid regurgitation Doppler profile to calculate a right ventricular systolic pressure. Aortic Valve The aortic valve appears normal. The aortic valve is tricuspid. There is no evidence of valvular aortic stenosis. The peak aortic valve gradient is 7 mmHg. There is no evidence of aortic regurgitation by color and spectral Doppler. The visualized portions of the thoracic aorta appear normal. Pulmonic Valve The pulmonary valve appears normal. There is no evidence of pulmonic stenosis. There is no evidence of pulmonary regurgitation by color and spectral Doppler. Pericardium There is no evidence of pericardial effusion. There no evidence of a pleural effusion. Interatrial Septum The interatrial septum appears normal. General Findings The image quality was fair (3). Technique(s) used in the evaluation: Color flow Doppler and Spectral Doppler. The predominant rhythm during the study was sinus. Comparison Findings No prior studies for comparison. us Farnaz LOGAN CV ECHO ORDERABLES Final Result documented in this encounter Visit Diagnoses Diagnosis SOB (shortness of breath)- Primary Shortness of breath SOB (shortness of breath) Shortness of breath documented in this encounter Care Teams Tool And Fixture Repairer Relationship Specialty Start Date End Date Farnaz Aranda PA [address] [place] [address] [email or web address] PCP - General Unknown Provider Specialty 07/23/19 01/21/22 Barbara Monroy MD [address] [place] [email or web address] PCP - General Internal Medicine 01/22/22 Linda Holloway MD [address] [address] Historical LMR Provider 07/25/17 10/17/21 Kenisha Flores MD [address] [place] [address] [email or web address] Historical LMR Provider 07/25/17 10/17/21 Salena Cardenas MD [address] [address] [email or web address] LMR Provider 07/25/17 10/17/21 Shay Dao MD 41 [place] [address] Historical LMR Provider 07/25/17 10/17/21 Casey Lofton MD Gastroenterology 02/14/20 documented as of this encounter Additional Source Comments The information contained in this document represents components of the legal health record. It is not the complete legal health record.[facility]
--- OUTSIDE RECORDS SUMMARY | 2025-06-28 09:22 | XMS_ITS | Encounter Summary ---
Author Organization [facility] Address [address] [place] [address] Phone Care Team Providers Care Gift Shop Clerk Name Role Phone Casey Lofton MD [facility] Barbara Dumont MD Primary Care Provider [phone] Reason for Referral * MRI/CAT Scan - Closed Specialty Diagnoses / Procedures Referred By Clarice [email or web address] Referred To Contact Radiology Diagnoses Chronic sinusitis, unspecified location Procedures CT Face Farnaz Aranda PA Phone: tel: fax: [email or web address]:[email or web address] Referral ID Status Reason Start Date Expiration Date Visits Re quested Visits Authorized [id number] Closed 08/17/2022 08/17/2023 1 1 Encounter Details Date Type Department Care Team (Latest Contact Info) Description 08/17/2022 Transcribe Orders Virtual Department [address] [place] [address] Farnaz Aranda PA 15 [place] [address] [email or web address] Chronic sinusitis, unspecified location (Primary Dx) Social History Tobacco Use Types [...] as of this encounter Results * CT FACE (SINUS) WITHOUT CONTRAST (10/05/2022 11:26 AM EST) Anatomical Region Laterality Modality Face Computed Tomogra phy 10/05/2022 2:40 PM EST Impressions 10/06/2022 9:34 AM EST No evidence of significant paranasal sinus disease. Narrative 10/06/2022 9:[address] FACE (SINUS) WITHOUT CONTRAST TECHNIQUE: Multidetector-row CT of the sinuses was performed without intravenous contrast using tailored dose modulation techniques. Images were reconstructed in the axial, coronal, and sagittal planes. COMPARISON: None FINDINGS: Frontal sinuses and frontoethmoidal junctions: Normal. Clear. Anterior and posterior ethmoid air cells: Normal. Clear. Maxillary sinuses and infundibula: Normal. Clear. Sphenoid sinuses and sphenoethmoidal recesses: Normal. Clear. Nasal cavity: Unremarkable. No nasal septal deviation or septal spur. Imaged maxillary teeth: Normal. No periapical lucencies. Mastoid air cells and middle ear cavities: Normal. Clear. Temporomandibular joints: Normal. No significant degenerative remodeling. Brain: Images of the brain parenchyma are not of diagnostic quality for the soft tissues. No focal abnormality is visible with this technique. Orbits and globes: Normal. No abnormality. Procedure Note Josesito Curtis MD - 10/06/2022 CT FACE (SINUS) WITHOUT CONTRAST TECHNIQUE: Multidetector-row CT of the sinuses was performed withoutintravenous contrast using tailored dose modulation techniques. Imageswere reconstructed in the axial, coronal, and sagittal planes. COMPARISON: None FINDINGS: Frontal sinuses and frontoethmoidal junctions: Normal. Clear. Anterior and posterior ethmoid air cells: Normal. Clear. Maxillary sinuses and infundibula: Normal. Clear. Sphenoid sinuses and sphenoethmoidal recesses: Normal. Clear. Nasal cavity: Unremarkable. No nasal septal deviation or septal spur. Imaged maxillary teeth: Normal. No periapical lucencies. Mastoid air cells and middle ear cavities: Normal. Clear. Temporomandibular joints: Normal. No significant degenerativeremodeling. Brain: Images of the brain parenchyma are not of diagnostic quality forthe soft tissues. No focal abnormality is visible with this technique. Orbits and globes: Normal. No abnormality. IMPRESSION: No evidence of significant paranasal sinus disease. Farnaz LOGAN IMG CT HEAD/NECK Final Result documented in this encounter Visit Diagnoses Diagnosis Chronic sinusitis, unspecified location- Primary Chronic sinusitis, unspecified location documented in this encounter Care Teams Gift Shop Clerk Relationship Specialty Start Date End Date Barbara Monroy MD [address] [place] [address] [email or web address] PCP - General Internal Medicine 01/22/22 Casey Lofton MD Gastroenterology 02/14/20 documented as of this encounter Additional Source Comments The information contained in this document represents components of the legal health record. It is not the complete legal health record.[facility]
--- OUTSIDE RECORDS SUMMARY | 2025-06-28 09:22 | XMS_ITS | Encounter Summary ---
Author Organization [facility] Address [address] [place] [address] Phone Care Team Providers Care Maintenance Technician 2Nd Shift Name Role Phone Farnaz Aranda Primary Care Provider [phone] Casey Lofton MD [facility] Barbara Dumont MD Primary Care Provider [phone] Encounter Details Date Type Department Care Team (Latest Contact Info) Description 01/15/2022 Transcribe Orders Virtual Department [address] [place] [address] Farnaz Aranda PA 15 [place] [address] [email or web address] Breast screening (Primary Dx) Social History Tobacco Use Types [...] of this encounter Results * BI MAMMOGRAM SCREENING WITH TOMOSYNTHESIS WITH CAD (BILATERAL) (01/25/2022 7:36 AM EDT) Anatomical Region Laterality Modality Breast Left, Breast Right, Breast Bilateral Bila teral Mammography 01/25/2022 8:02 AM EDT Impressions 01/25/2022 8:08 AM EDT No mammographic evidence of malignancy. Recommend routine annual surveillance. BI-RADS CATEGORY: 2 - Benign finding. DENSITY: There are scattered fibroglandular densities. Narrative 01/25/2022 8:08 AM EDT 66-year-old female with no current breast symptoms. Comparison made to previous on 08/28/2020 and as far back as 05/29/2015. Interpretation made in conjunction with computer-aided detection and tomosynthesis. There are scattered areas of fibroglandular density. Chronic benign right breast macrocalcification. There are no suspicious masses, areas of architectural distortion, or suspicious clusters of microcalcifications. Procedure Note Aki Reinoso MD - 01/25/2022 66-year-old female with no current breast symptoms. Comparison made toprevious on 08/28/2020 and as far back as 05/29/2015. Interpretation madein conjunction with computer-aided detection and tomosynthesis. There are scattered areas of fibroglandular density. Chronic benign rightbreast macrocalcification. There are no suspicious masses, areas of architectural distortion, orsuspicious clusters of microcalcifications. IMPRESSION: No mammographic evidence of malignancy. Recommend routine annualsurveillance. BI-RADS CATEGORY: 2 - Benign finding. DENSITY: There are scattered fibroglandular densities. Farnaz LOGAN IMG MG EXAMS Final Result documented in this encounter Visit Diagnoses Diagnosis Breast screening- Primary Breast screening, unspecified Breast screening Breast screening, unspecified documented in this encounter Care Teams Maintenance Technician 2Nd Shift Relationship Specialty Start Date End Date Farnaz Aranda PA [address] [place] [address] [email or web address] PCP - General Unknown Provider Specialty 07/23/19 01/21/22 Barbara Monroy MD [address] [place] [address] [email or web address] PCP - General Internal Medicine 01/22/22 Casey Lofton MD Gastroenterology 02/14/20 documented as of this encounter Additional Source Comments The information contained in this document represents components of the legal health record. It is not the complete legal health record.[facility]
--- OUTSIDE RECORDS SUMMARY | 2025-06-28 09:22 | XMS_ITS | Encounter Summary ---
Author Organization [facility] Address [address] [place] [address] Phone Care Team Providers Care Spanish Language Lecturer Name Role Phone Linda Holloway MD Unavailable [phone] Kenisha Flores MD Unavailable + Salena Cardenas MD Unavailable [phone] Shay Dao MD Unavailable [phone] Kenisha Flores MD Primary Care Prov ider Farnaz Aranda Primary Care Provider [phone] Casey Lofton MD Unavailable Unavailabl e Barbara Monroy MD Primary Care Provider [phone] Encounter Details Date Type Department Care Team (Late st Contact Info) Description 2019 Ancillary Orders Virtual Department 30 [place] [address] Farnaz Aranda PA [address] [place] [address] [email or web address] Breast screening Social History Tobacco Use Types Packs/Day Years Used Date Smoking Tobacco: Never Smokeless Tobacco: Never Alcohol Use Standard Drinks/Week Comments Yes 0 (1 standard drink = 0.6 oz pur e alcohol) Comments Unknown Sex and Gender Information Value Date Recorded Sex Assigned at Female 02/13/2020 10:52 AM EDT Legal Sex Female 9:55 PM EDT Gender Identity Female 02/13/2020 10:52 AM EDT Sexual Orientation Straight 10/15/2024 10 :44 AM EST documented as of this encounter Plan of Treatment Not on file documented as of this encounter Results * BI MAMMOGRAM SCREENING WITH TOMOSYNTHESIS WITH CAD (BILATERAL) (07/23/2019 11:24 AM EDT) Anatomical Region Laterality Modality Breast Left, Breast Right, Breast Bilateral Bila teral Mammography 07/23/2019 4:58 PM EDT Impressions 07/23/2019 5:03 PM EDT BILATERAL BREASTS: Benign, no evidence of malignancy. Normal interval follow-up is recommended in 12 months. Bi-RADS: BI-RADS CATEGORY: 2 - Benign finding. DENSITY: The breast tissue is heterogeneously dense, an appearance which lowers the sensitivity of mammography. POS - [id number] Narrative 07/23/2019 5:03 PM EDT STUDY: Bilateral screening mammography with tomosynthesis and CAD TECHNIQUE: Bilateral full-field digital screening mammography is obtained and read in conjunction with computer-aided detection. Tomosynthesis as well as 2-D C view imaging were obtained. COMPARISON: Comparison made to multiple prior, most recent May 30, 2018, and most remote June 01, 2010. BREAST COMPOSITION: The breasts are heterogeneously dense, which may obscure small masses. BILATERAL BREASTS: No significant masses, calcifications or other abnormalities are seen on either side. History of left breast biopsy. Procedure Note Tiara Yuen MD - 07/23/2019 STUDY: Bilateral screening mammography with tomosynthesis and CAD TECHNIQUE: Bilateral full-field digital screening mammography is obtainedand read in conjunction with computer-aided detection. Tomosynthesis aswell as 2-D C view imaging were obtained. COMPARISON: Comparison made to multiple prior, most recent May, and most remote June 01, 2010. BREAST COMPOSITION: The breasts are heterogeneously dense, which mayobscure small masses. BILATERAL BREASTS: No significant masses, calcifications or otherabnormalities are seen on either side. History of left breast biopsy. IMPRESSION: BILATERAL BREASTS: Benign, no evidence of malignancy. Normal intervalfollow-up is recommended in 12 months. Bi-RADS: BI-RADS CATEGORY: 2 - Benign finding. DENSITY: The breast tissue is heterogeneously dense, an appearance whichlowers the sensitivity of mammography. POS - [id number] Farnaz LOGAN IMG MG EXAMS Final Result documented in this encounter Visit Diagnoses Diagnosis Breast screening Breast screening, unspecified Breast screening Breast screening, unspecified documented in this encounter Additional Health Concerns Infection Onset Date Last Indicated Resolved Time Clearance-CoV Comment:Auto-resolved with negative COVID-19 PCR 02/13/2020 02/13/2020 02/13/2020 4:00 PM E DT CoV-Risk Comment:COVID-19 test pending Adm from home 02/13/2020 02/13/2020 02/14/2020 12:27 PM EDT documented as of this encounter Care Teams Spanish Language Lecturer Relationship Specialty Start Date End Date Kenisha Flores MD [address] [place] [address] [email or web address] PCP - General 10/13/17 07/22/19 Farnaz Aranda PA [address] [place] [address] [email or web address] PCP - General Unknown Provider Specialty 07/23/19 01/21/22 Barbara Monroy MD 15 [place] [address] PCP - General Internal Medicine 01/22/22 Linda Holloway MD 15 [facility], 2nd [place] [address] Historical LMR Provider 07/25/17 10/17/21 Kenisha Flores MD 238 [place] [address] [email or web address] Historical LMR Provider 07/25/17 10/17/21 Salena Cardenas MD [address] [address] [email or web address] Historical LMR Provider 07/25/17 10/17/21 Shay Dao MD 41 [place] [address] Historical LMR Provider 07/25/17 10/17/21 Casey Lofton MD Gastroenterology 02/14/20 documented as of this encounter Additional Source Comments The information contained in this document represents components of the legal health record. It is not the complete legal health record.[facility]
--- OUTSIDE RECORDS SUMMARY | 2025-06-28 09:22 | XMS_ITS | Encounter Summary ---
Author Organization [facility] Address [address] [place] [address] Phone Care Team Providers Care Carbon Dioxide Operator Name Role Phone Linda Holloway MD Unavailable [phone] Kenisha Flores MD Unavailable + Salena Cardenas MD Unavailable [phone] Shay Dao MD Unavailable [phone] Farnaz Aranda Primary Care Provider [phone] Casey Lofton MD Unavailable Unavailabl e Barbara Monroy MD Primary Care Provider [phone] Encounter Details Date Type Department Care Team (Latest Contact Info) Description 08/27/2019 Transcribe Orders [facility] [address] [place] [address] Farnaz Aranda PA [address] [place] [address] [email or web address] Hypertension, unspecified type (Primary Dx); Vitamin D deficiency Social History Tobacco Use Types Packs/Day Years Used Date Smoking Tobacco: Never Smokeless Tobacco: Never Alcohol Use Standard Drinks/Week Comments Yes 0 (1 standard drink = 0.6 oz pur e alcohol) Comments No Sex and Gender Information Value Date Recorded Sex Assigned at Female 02/13/2020 10:52 AM EDT Legal Sex Female 9:55 PM EDT Gender Identity Female 02/13/2020 10:52 AM EDT Sexual Orientation Straight 10/15/2024 10 :44 AM EST documented as of this encounter Plan of Treatment Not on file documented as of this encounter Results * (ABNORMAL) 25-OH vitamin D (08/27/2019 8:30 AM EST) 25 OH VIT D (TOTAL) 19(L) 30 - 60 ng/mL [facility] Blood 08/27/2019 8:30 AM EST 08/27/2019 9:16 AM EST Farnaz LOGAN LAB BLOOD ORDERABLES Final Resu lt [address] [address] * (ABNORMAL) Basic metabolic panel (08/27/2019 8:30 AM EST) SODIUM 142 133 - 146 mmol/L [facility] CHLORIDE 104 96 - 108 mmol/L [facility] POTASSIUM 4.4 3.3 - 5.1 mmol/L [facility] CO2 27 21 - 35 mmol/L [facility] BUN 12 6 - 19 mg/dL [facility] CREATININE 0.70 0.5 - 1.5 mg/dL [facility] GLUCOSE 130(H) 70 - 99 mg/dL [facility] CALCIUM 9.4 8.4 - 10.3 mg/dL [facility] EGFR 92 >59 mL/min/1.7 3m2 [facility] Comment:If patient is black, multiply result by 1.159. Estimated glomerular filtration rate calculated using the CKD-EPI equation. ANION GAP 15 10 - 20 mmol/L [facility] Blood 08/27/2019 8:30 AM EST 08/27/2019 9:16 AM EST Farnaz LOGAN LAB BLOOD ORDERABLES Final Resu lt [address] [address] documented in this encounter Visit Diagnoses Diagnosis Hypertension, unspecified type- Primary Vitamin D deficiency documented in this encounter Additional Health Concerns Infection Onset Date Last Indicated Resolved Time Clearance-CoV Comment:Auto-resolved with negative COVID-19 PCR 02/13/2020 02/13/2020 02/13/2020 4:00 PM E DT CoV-Risk Comment:COVID-19 test pending Adm from home 02/13/2020 02/13/2020 02/14/2020 12:27 PM EDT documented as of this encounter Care Teams Carbon Dioxide Operator Relationship Specialty Start Date End Date Farnaz Aranda PA [address] [place] [address] [email or web address] PCP - General Unknown Provider Specialty 07/23/19 01/21/22 Barbara Monroy MD 15 [place] [address] PCP - General Internal Medicine 01/22/22 Linda Holloway MD 15 [facility], [address] [place] [address] Historical LMR Provider 07/25/17 10/17/21 Kenisha Flores MD [address] [place] [address] [email or web address] Historical LMR Provider 07/25/17 10/17/21 Salena Cardenas MD [address] [address] [email or web address] Historical LMR Provider 07/25/17 10/17/21 Shay Dao MD 41 [place] [address] Historical LMR Provider 07/25/17 10/17/21 Casey Lofton MD Gastroenterology 02/14/20 documented as of this encounter Additional Source Comments The information contained in this document represents components of the legal health record. It is not the complete legal health record.[facility]
--- OUTSIDE RECORDS SUMMARY | 2025-06-28 09:22 | XMS_ITS | Encounter Summary ---
Author Organization [facility] Address [address] [place] [address] Phone Care Team Providers Care Emergency Medical Services Coordinator Name Role Phone Farnaz Aranda Primary Care Provider [phone] Casey Lofton MD [facility] Barbara Dumont MD Primary Care Provider [phone] Encounter Details Date Type Department Care Team (Late st Contact Info) Description 01/15/2022 Transcribe Orders Virtual Department 30 [place] [address] Farnaz Aranda PA 15 [place] [address] [email or web address] Cough (Primary Dx) Social History Tobacco Use Types [...] documented as of this encounter Results * XR CHEST PA AND LATERAL 2 VIEWS (01/25/2022 8:32 AM EDT) Anatomical Region Laterality Modality Chest Computed Radiogr aphy 01/25/2022 10:5 8 AM EDT Impressions 01/25/2022 11:00 AM EDT No evidence of acute cardiopulmonary disease. Narrative 01/25/2022 11:00 AM EDT HISTORY: Cough. COMPARISON: Chest x-ray 12/07/2019 FINDINGS: PA and lateral views of the chest obtained. The lungs are again well expanded possibly mildly hyperinflated. The lungs Appear clear. No evidence of pleural effusions or pneumothorax. Great vessel and cardiomediastinal contours are stable. Heart size within normal limits.. Procedure Note Jaime Isaacs MD - 01/25/2022 HISTORY: Cough. COMPARISON: Chest x-ray 12/07/2019 FINDINGS: PA and lateral views of the chest obtained. The lungs are again well expanded possibly mildly hyperinflated. The lungsAppear clear. No evidence of pleural effusions or pneumothorax. Greatvessel and cardiomediastinal contours are stable. Heart size within normallimits.. IMPRESSION: No evidence of acute cardiopulmonary disease. Farnaz LOGAN IMG XR CHEST Final Result documented in this encounter Visit Diagnoses Diagnosis Cough- Primary Cough documented in this encounter Care Teams Emergency Medical Services Coordinator Relationship Specialty Start Date End Date Farnaz Aranda PA [address] [place] [address] [email or web address] PCP - General Unknown Provider Specialty 07/23/19 01/21/22 Barbara Monroy MD [address] [place] [address] PCP - General Internal Medicine 01/22/22 Casey Lofton MD Gastroenterology 02/14/20 documented as of this encounter Additional Source Comments The information contained in this document represents components of the legal health record. It is not the complete legal health record.[facility]
--- OUTSIDE RECORDS SUMMARY | 2025-06-28 09:22 | XMS_ITS | Encounter Summary ---
Author Organization [facility] Address [address] [place] [address] Phone Care Team Providers Care Rod Finisher Name Role Phone Linda Holloway MD Unavailable [phone] Kenisha Flores MD Unavailable + Salena Cardenas MD Unavailable [phone] Shay Dao MD Unavailable [phone] Farnaz Aranda Primary Care Provider [phone] Casey Lofton MD Unavailable [facility] Barbara Monroy MD Primary Care Provider [phone] Reason for Referral * MRI/CAT Scan - Closed Specialty Diagnoses / Procedures Referred By Contac t Referred To Contact Radiology Diagnoses Chronic sinusitis, unspecified location Cervical lymphadenopathy Procedures CT Neck Farnaz Aranda PA Phone: tel: fax: mailto:[email or web address] Referral ID Status Reason Start Date Expiration Date Visits Re quested Visits Authorized [id number] Closed 09/24/2020 09/24/2021 1 1 * MRI/CAT Scan - Closed Specialty Diagnoses / Procedures Referred By Contac t Referred To Contact Radiology Diagnoses Chronic sinusitis, unspecified location Cervical lymphadenopathy Procedures CT Face Farnaz Aranda PA Phone: tel: fax: mailto:[email or web address] Referral ID Status Reason Start Date Expiration Date Visits Re quested Visits Authorized [id number] Closed 09/24/2020 09/24/2021 1 1 Encounter Details Date Type Department Care Team (Latest Contact Info) Description 09/24/2020 Transcribe Orders Virtual Department 30 [place] [address] Farnaz Aranda PA [address] [place] [address] [email or web address] Chronic sinusitis, unspecified location (Primary Dx); Cervical lymphadenopathy Social History Tobacco Use Types Packs/Day Years [...] as of this encounter Results * CT NECK SOFT TISSUE WITH CONTRAST (10/08/2020 9:54 AM EST) Anatomical Region Laterality Modality Neck Computed Tomogra phy 10/08/2020 9:44 AM EST Impressions 10/08/2020 9:52 AM EST 1.No suspicious cervical lymphadenopathy. 2.Cervical spondylosis as above. Narrative 10/08/2020 9:52 AM EST COMPARISON: No prior neck CT. CT chest 07/18/2020. TECHNIQUE: CT neck with IV contrast obtained from skull base to thoracic inlet. Multiplanar reformats obtained. Automated exposure control utilized. CT NECK FINDINGS: Brain: Imaged brain is normal. Orbits: Normal. Paranasal Sinuses/Mastoids: Small left sphenoid sinus air-fluid level. Otherwise normal. Musculoskeletal: Moderate C5-6 and C7-T1 and severe C6-7 disc space narrowing and endplate spurring. Moderate multilevel facet arthropathy and neural foraminal stenosis. No large disc herniation. No bony canal stenosis. No destructive or suspicious bone lesions. Salivary Glands/Thyroid Gland: Normal. Vasculature: Minimal aortic arch and left carotid bifurcation atherosclerosis. Lung Apices/Airway: Airway is patent. No masses. Imaged lung apices are clear. Soft Tissues: No enlarged lymph nodes. No soft tissue swelling or masses. Procedure Note Aki Reinoso MD - 10/08/2020 COMPARISON: No prior neck CT. CT chest 07/18/2020. TECHNIQUE: CT neck with IV contrast obtained from skull base to thoracicinlet. Multiplanar reformats obtained. Automated exposure controlutilized. CT NECK FINDINGS: Brain: Imaged brain is normal. Orbits: Normal. Paranasal Sinuses/Mastoids: Small left sphenoid sinus air-fluid level.Otherwise normal. Musculoskeletal: Moderate C5-6 and C7-T1 and severe C6-7 disc spacenarrowing and endplate spurring. Moderate multilevel facet arthropathy andneural foraminal stenosis. No large disc herniation. No bony canalstenosis. No destructive or suspicious bone lesions. Salivary Glands/Thyroid Gland: Normal. Vasculature: Minimal aortic arch and left carotid bifurcationatherosclerosis. Lung Apices/Airway: Airway is patent. No masses. Imaged lung apices areclear. Soft Tissues: No enlarged lymph nodes. No soft tissue swelling ormasses. IMPRESSION: 1.No suspicious cervical lymphadenopathy. 2.Cervical spondylosis as above. Farnaz LOGAN IMG CT XSPECIALTY ORDERABLES Fi nal Result * CT FACE (SINUS) WITHOUT CONTRAST (10/08/2020 9:23 AM EST) Anatomical Region Laterality Modality Face Computed Tomogra phy 10/08/2020 9:14 AM EST Impressions 10/08/2020 9:43 AM EST Mild left sphenoid sinus disease. Narrative 10/08/2020 9:43 AM EST COMPARISON: None. TECHNIQUE: CT of the facial bones without contrast. Sagittal and coronal reformats generated. Automated exposure control utilized. CT FACIAL BONES FINDINGS: Brain: Imaged brain is normal. Orbits: Normal. Soft tissue: Normal. Bones/sinuses: Small left sphenoid sinus air-fluid level. No nasal septal deviation. Ostiomeatal unit complexes are patent. No nasal polyps. Mastoids, middle ears and external canals are clear. No destructive or suspicious bone lesions. Procedure Note Aki Reinoso MD - 10/08/2020 COMPARISON: None. TECHNIQUE: CT of the facial bones without contrast. Sagittal and coronalreformats generated. Automated exposure control utilized. CT FACIAL BONES FINDINGS: Brain: Imaged brain is normal. Orbits: Normal. Soft tissue: Normal. Bones/sinuses: Small left sphenoid sinus air-fluid level. No nasal septaldeviation. Ostiomeatal unit complexes are patent. No nasal polyps.Mastoids, middle ears and external canals are clear. No destructive orsuspicious bone lesions. IMPRESSION: Mild left sphenoid sinus disease. Farnaz LOGAN [facility] [place]NECK Final Result documented in this encounter Visit Diagnoses Diagnosis Chronic sinusitis, unspecified location- Primary Cervical lymphadenopathy Enlargement of lymph nodes Chronic sinusitis, unspecified location Cervical lymphadenopathy Enlargement of lymph nodes Chronic sinusitis, unspecified location Cervical lymphadenopathy Enlargement of lymph nodes documented in this encounter Care Teams Rod Finisher Relationship Specialty Start Date End Date Farnaz Aranda PA [address] [place] [address] [email or web address] PCP - General Unknown Provider Specialty 07/23/19 01/21/22 Barbara Monroy MD [address] [place] [address] [email or web address] PCP - General Internal Medicine 01/22/22 Linda Holloway MD [address] [facility], [address] [place] [address] [email or web address] Historical LMR Provider 07/25/17 10/17/21 Kenisha Flores MD 238 [place] [address] [email or web address] Historical LMR Provider 07/25/17 10/17/21 Salena Cardenas MD [address] [address] [email or web address] Historical LMR Provider 07/25/17 10/17/21 Shay Dao MD [address] [place] [address] Historical LMR Provider 07/25/17 10/17/21 Casey Lofton MD Gastroenterology 02/14/20 documented as of this encounter Additional Source Comments The information contained in this document represents components of the legal health record. It is not the complete legal health record.[facility]
--- OUTSIDE RECORDS SUMMARY | 2025-06-28 09:22 | XMS_ITS | Encounter Summary ---
Author Organization [facility] Address [address] [place] [address] Phone Care Team Providers Care Health And Safety Inspector Name Role Phone Linda Holloway MD Unavailable [phone] Kenisha Flores MD Unavailable + Salena Cardenas MD Unavailable [phone] Shay Dao MD Unavailable [phone] Farnaz Aranda Primary Care Provider [phone] Casey Lofton MD Unavailable Unavailabl e Barbara Monroy MD Primary Care Provider Encounter Details Date Type Department Care Team (Late st Contact Info) Description 12/07/2019 Ancillary Orders [facility], X-Ray - [address] [address] Farnaz Aranda PA 15 [place] [address] [email or web address] Decisions Cough Social History Tobacco Use Types Packs/Day Years [...] XR CHEST PA AND LATERAL 2 VIEWS (12/07/2019 10:26 AM EST) Anatomical Region Laterality Modality Chest Radiographic Carol ging 12/07/2019 10:4 3 AM EST Impressions 12/07/2019 10:44 AM EST Hyperinflation. No pneumonia. POS - [id number] Narrative 12/07/2019 10:44 AM EST HISTORY: As above. COMPARISON: None. CHEST RADIOGRAPH FINDINGS: Views: 2. Lines/Tubes: None. Heart and Mediastinum: Normal. Lungs: Lungs are hyperinflated and clear. Bones: No acute findings. Mild bilateral shoulder arthritis. Soft Tissues: No acute findings. Procedure Note Disha Conklin MD - 12/07/2019 HISTORY: As above. COMPARISON: None. CHEST RADIOGRAPH FINDINGS: Views: 2. Lines/Tubes: None. Heart and Mediastinum: Normal. Lungs: Lungs are hyperinflated and clear. Bones: No acute findings. Mild bilateral shoulder arthritis. Soft Tissues: No acute findings. IMPRESSION: Hyperinflation. No pneumonia. POS - [id number] Farnaz LOGAN IMG XR CHEST Final Result documented in this encounter Visit Diagnoses Diagnosis Cough Cough documented in this encounter Additional Health Concerns Infection Onset Date Last Indicated Resolved Time Clearance-CoV Comment:Auto-resolved with negative COVID-19 PCR 02/13/2020 02/13/2020 02/13/2020 4:00 PM E DT CoV-Risk Comment:COVID-19 test pending Adm from home 02/13/2020 02/13/2020 02/14/2020 12:27 PM EDT documented as of this encounter Care Teams Health And Safety Inspector Relationship Specialty Start Date End Date Farnaz Aranda PA [address] [place] [address] [email or web address] PCP - General Unknown Provider Specialty 07/23/19 01/21/22 Barbara Monroy MD 15 [place] [address] PCP - General Internal Medicine 01/22/22 Linda Holloway MD 15 [facility], [address] [place] [address] Historical LMR Provider 07/25/17 10/17/21 Kenisha Flores MD [address] [place] [address] [email or web address] Historical LMR Provider 07/25/17 10/17/21 Salena Cardenas MD [address] [address] [email or web address] Historical LMR Provider 07/25/17 10/17/21 Shay Dao MD 41 [place] [address] Historical LMR Provider 07/25/17 10/17/21 Casey Lofton MD Gastroenterology 02/14/20 documented as of this encounter Additional Source Comments The information contained in this document represents components of the legal health record. It is not the complete legal health record.[facility]
--- OUTSIDE RECORDS SUMMARY | 2025-06-28 09:22 | XMS_ITS | Encounter Summary ---
Author Organization [facility] Address [address] [place] [address] Phone Care Team Providers Care Batch Analyst Name Role Phone Linda Holloway MD Unavailable [phone] Kenisha Flores MD Unavailable + Salena Cardenas MD Unavailable [phone] Shay Dao MD Unavailable [phone] Kenisha Flores MD Primary Care Prov ider Farnaz Aranda Primary Care Provider [phone] Casey Lofton MD Unavailable Unavailabl e Barbara Monroy MD Primary Care Provider [phone] Encounter Details Date Type Department Care Team (Late st Contact Info) Description 07/10/2019 Ancillary Orders [facility],Outside Imaging [address] [place] [address] System, Provider Not In, PhD Partners [address] [address] Social History Tobacco Use Types Packs/Day Years [...] documented as of this encounter Results * Mammogram Outside (No Interpretation) (05/30/2018 12:00 AM EDT) Narrative SYSTEMGENERATED, DOCUMENTATION - 07/10/2019 5:06 PM EDT This study is for PACS storage only and not for interpretation. us Provider Not In System PhD IMG OUTSIDE IMAGING W /OUT INTERPRETATION Final Result documented in this encounter Visit Diagnoses Not on filedocumented in this encounter Additional Health Concerns Infection Onset Date Last Indicated Resolved Time Clearance-CoV Comment:Auto-resolved with negative COVID-19 PCR 02/13/2020 02/13/2020 02/13/2020 4:00 PM E DT CoV-Risk Comment:COVID-19 test pending Adm from home 02/13/2020 02/13/2020 02/14/2020 12:27 PM EDT documented as of this encounter Care Teams Batch Analyst Relationship Specialty Start Date End Date Kenisha Flores MD [address] [place] [id number] [email or web address] PCP - General 10/13/17 07/22/19 Farnaz Aranda PA [address] [place] [address] [email or web address] PCP - General Unknown Provider Specialty 07/23/19 01/21/22 Barbara Monroy MD [address] [place] [address] PCP - General Internal Medicine 01/22/22 Linda Holloway MD 15 [facility], 2nd [place] [address] Historical LMR Provider 07/25/17 10/17/21 Kenisha Flores MD [address] [place] [address] [email or web address] Historical LMR Provider 07/25/17 10/17/21 Salena Cardenas MD [address] [address] [email or web address] Historical LMR Provider 07/25/17 10/17/21 Shay Dao MD [address] [place] [address] Historical LMR Provider 07/25/17 10/17/21 Casey Lofton MD Gastroenterology 02/14/20 documented as of this encounter Additional Source Comments The information contained in this document represents components of the legal health record. It is not the complete legal health record.[facility]
--- OUTSIDE RECORDS SUMMARY | 2025-06-28 09:22 | XMS_ITS | Encounter Summary ---
Author Organization [facility] Address [address] [place] [phone] Phone Care Team Providers Care Director Software Development Name Role Phone Linda Holloway MD Unavailable [phone] Kenisha Flores MD Unavailable + Salena Cardenas MD Unavailable [phone] Shay Dao MD Unavailable [phone] Farnaz Aranda Primary Care Provider [phone] Casey Lofton MD Unavailable Unavailabl e Barbara Monroy MD Primary Care Provider [phone] Encounter Details Date Type Department Care Team (Latest Contact Info) Description 02/29/2020 Transcribe Orders [facility] [address] [place] [address] Farnaz Aranda PA [address] [place] [address] [email or web address] Leukocytosis, unspecified type (Primary Dx) Social History Tobacco Use Types Packs/Day Years Used Date Smoking Tobacco: Never Smokeless Tobacco: Never Alcohol Use Standard Drinks/Week Comments Yes 0 (1 standard drink = 0.6 oz pur e alcohol) occasionally Comments No Sex and Gender Information Value Date Recorded Sex Assigned at Female 02/13/2020 10:52 AM EDT Legal Sex Female 9:55 PM EDT Gender Identity Female 02/13/2020 10:52 AM EDT Sexual Orientation Straight 10/15/2024 10 :44 AM EST documented as of this encounter Plan of Treatment Not on file documented as of this encounter Results * (ABNORMAL) CBC and differential (02/29/2020 8:46 AM EDT) WBC 11.88(H) 4.00 - 11.00 K/uL [facility] Comment:Note Reference Range updates to all CBC and Differential results. RBC 4.45 3.72 - 5.30 M/uL [facility] HGB 12.8 11.4 - 15.9 g/dL [facility] Comment:Note updated Referen ce Ranges for all CBC and Differential results. HCT 38.6 34.2 - 46.8 % [facility] PLT 392 140 - 430 K/uL [facility] MCV 86.7 78.0 - 97.0 fL [facility] MCH 28.8 25.0 - 33.0 pg [facility] MCHC 33.2 32.0 - 36.0 g/dL [facility] RDW 13.6 11.0 - 16.0 % [facility] MPV 9.4 8.4 - 12.8 fl [facility] NRBC 0.00 0 /100 WBCs [facility] ABSOLUTE NRBC 0.00 0 K/uL [facility] DIFF METHOD Auto [facility] NEUTS 71.4 43.0 - 75.0 % [facility] LYMPHS 21.2 18.2 - 47.4 % [facility] MONOS 5.0 4.00 - 11.00 % [facility] EOS 1.2 0.0 - 8.0 % [facility] BASOS 0.8 0.0 - 2.0 % [facility] Granulocytes, immature (%) 0.4 0.0 - 0.9 % [facility] ABSOLUTE NEUTS 8.48(H) 1.80 - 7.70 K/uL [facility] ABSOLUTE LYMPHS 2.52 1.00 - 3.10 K/uL [facility] ABSOLUTE MONOS 0.59 0.20 - 0.80 K/uL [facility] ABSOLUTE EOS 0.14 0.00 - 0.80 K/uL [facility] ABSOLUTE BASOS 0.10(H) 0.00 - 0.09 K/uL [facility] Granulocytes, immature 0.05 0.00 - 0.05 K/uL [facility] Blood 02/29/2020 8:46 AM EDT 02/29/2020 8:48 AM EDT us F[facility] BLOOD ORDERABLES Final Resu lt [facility] [address] [place] [address] documented in this encounter Visit Diagnoses Diagnosis Leukocytosis, unspecified type- Primary documented in this encounter Care Teams Director Software Development Relationship Specialty Start Date End Date Farnaz Aranda PA [address] [place] [phone] [email or web address] PCP - General Unknown Provider Specialty 07/23/19 01/21/22 Barbara Monroy MD [address] [place] [phone] PCP - General Internal Medicine 01/22/22 Linda Holloway MD [address] [place] [address] Historical LMR Provider 07/25/17 10/17/21 Kenisha Flores MD [address] [place] [phone] [email or web address] Historical LMR Provider 07/25/17 10/17/21 Salena Cardenas MD [address] [address] [email or web address] Historical LMR Provider 07/25/17 10/17/21 Shay Dao MD [address] [place] [address] Historical LMR Provider 07/25/17 10/17/21 Casey Lofton MD Gastroenterology 02/14/20 documented as of this encounter Additional Source Comments The information contained in this document represents components of the legal health record. It is not the complete legal health record.[facility]
--- OUTSIDE RECORDS SUMMARY | 2025-06-28 09:22 | XMS_ITS | Encounter Summary ---
Author Organization [facility] Address [address] [place] [address] Phone Care Team Providers Care Attendant [facility] Name Role Phone Linda Holloway MD Unavailable [phone] Kenisha Flores MD Unavailable + Salena Cardenas MD Unavailable [phone] Shay Dao MD Unavailable [phone] Farnaz Aranda Primary Care Provider [phone] Casey Lofton MD Unavailable Unavailabl e Barbara Monroy MD Primary Care Provider Encounter Details Date Type Department Care Team (Latest Contact Info) Description 01/15/2020 Transcribe Orders [facility] [address] [place] [phone] Farnaz Aranda PA [address] [place] [phone] [email or web address] Hypertension, unspecified type (Primary Dx) Social History Tobacco [...] as of this encounter Results * (ABNORMAL) Basic metabolic panel (01/15/2020 7:43 AM EDT) SODIUM 139 133 - 146 mmol/L [facility] CHLORIDE 99 96 - 108 mmol/L [facility] POTASSIUM 4.2 3.3 - 5.1 mmol/L [facility] CO2 29 21 - 35 mmol/L [facility] BUN 16 6 - 19 mg/dL [facility] CREATININE 0.80 0.5 - 1.5 mg/dL [facility] GLUCOSE 140(H) 70 - 99 mg/dL [facility] CALCIUM 9.6 8.4 - 10.3 mg/dL [facility] EGFR 78 >59 mL/min/1.7 3m2 [facility] Comment:If patient is black, multiply result by 1.159. Estimated glomerular filtration rate calculated using the CKD-EPI equation. ANION GAP 15 10 - 20 mmol/L [facility] Blood 01/15/2020 7:43 AM EDT 01/15/2020 8:32 AM EDT us F[facility] BLOOD ORDERABLES Final Resu lt [facility] [address] [place] [address] documented in this encounter Visit Diagnoses Diagnosis Hypertension, unspecified type- Primary documented in this encounter Additional Health Concerns Infection Onset Date Last Indicated Resolved Time Clearance-CoV Comment:Auto-resolved with negative COVID-19 PCR 02/13/2020 02/13/2020 02/13/2020 4:00 PM E DT CoV-Risk Comment:COVID-19 test pending Adm from home 02/13/2020 02/13/2020 02/14/2020 12:27 PM EDT documented as of this encounter Care Teams Attendant [facility] Relationship Specialty Start Date End Date Farnaz Aranda PA [address] [place] [address] [email or web address] PCP - General Unknown Provider Specialty 07/23/19 01/21/22 Barbara Monroy MD [address] [place] [address] [email or web address] PCP - General Internal Medicine 01/22/22 Linda Holloway MD 15 [facility] [place] [address] [email or web address] Historical LMR Provider 07/25/17 10/17/21 Kenisha Flores MD [address] [place] [phone] [email or web address] Historical LMR Provider 07/25/17 10/17/21 Salena Cardenas MD [address] [address] [email or web address] Historical LMR Provider 07/25/17 10/17/21 Shay Doa MD [address] [place] [address] Historical LMR Provider 07/25/17 10/17/21 Casey Lofton MD Gastroenterology 02/14/20 documented as of this encounter Additional Source Comments The information contained in this document represents components of the legal health record. It is not the complete legal health record.[facility]
--- OUTSIDE RECORDS SUMMARY | 2025-06-28 09:22 | XMS_ITS | Clinical Summary ---
Author Organization [facility] Address [address] [place] [phone] Phone Care Team Providers Care Assistant Professor Of Philosophy Name Role Phone Casey Lofton MD, Christine D MD Primary Care Provider [phone] Allergies Active Allergy Reactions Criticality Noted Date Comments Azithromycin 04/13/2019 Sulfamethoxazole-Trimethoprim 2018 Hydrochlorothiazide Nausea and/or Vomiting 02/09 Medications losartan (COZAAR) 100 MG tablet Take 100 mg by mouth daily. Active amLODIPine (NORVASC) 5 MG tablet Take 5 mg by mouth daily. Active omeprazole (PRILOSEC) 20 MG capsule Take 20 mg by mouth daily. Active budesonide-form oterol (SYMBICORT) 80-4.5 mcg/actuation inhaler Inhale 2 puffs into the lungs 2 (two) times a day. Active cholecalciferol (VITAMIN D3) 2,000 unit capsule Take 2,000 Units by mouth daily. Active cetirizine (ZYRTEC) 10 MG tablet Take 10 mg by mouth daily. Active fluticasone propionate (FLONASE) 50 mcg/actuation nasal spray 1 spray by Nasal route daily. Active montelukast (SINGULAIR) 10 mg tablet Take 1 tablet by mouth every morning. 02/02/2023 Active folic acid (FOLVITE) 1 MG tablet Take 1 tablet by mouth every morning. 09/30/2024 Active methotrexate 2.5 MG Oral tablet TAKE 8 TABLETS ONCE A WEEK LABS DUE EVERY OTHER MONTH 07/29/2024 Active Active Problems Problem Noted Date Diagnosed Date Colitis 02/13/2020 Assessment & Plan (02/16/2020 12:55 PM EDT): Pain is improving, but set back yesterday with nausea and vomiting and inability to tolerate PO. Patient is afebrile, WBC decreasing, continue with Ceftriaxone and Flagyl as per GI recs. She tolerated liquids this morning, trial of saltines and toast today and continue to push oral hydration. No need for IVF currently. GI bleed 02/13/2020 Assessment & Plan (02/16/2020 12:52 PM EDT): Her H&H is stable at 11.2. She continues to have very small amounts of bright red blood per rectum with using the bathroom, no evidence for massive GI bleed. We will continue to monitor her response to advancing diet as tolerated and with additional BMs if blood persists. -She indicated that she would accept blood if needed, no indication at this time. Essential hypertension 02/13/2020 Assessment & Plan (02/16/2020 12:53 PM EDT): She has chronic hypertension and is on 3 antihypertensive medications. She takes HCTZ, losartan and amlodipine. Blood pressure remains within a normal range, less than 140. Hold off on restarting for now. I suspect that when patient begins eating more substantially, BP will increase. Gastrointestinal bleeding 02/13/2020 Family History Medical History Relation Comments Diverticulitis Brother Vascular disease Mother Relation Status Comments Brother Father Bowel ischemia Mother Social History Tobacco Use Types Packs/Day Years Used Date Smoking Tobacco: Never Smokeless Tobacco: Never Tobacco Cessation:Counseling Given: Not Answered Alcohol Use Standard Drinks/Week Comments Yes 0 [...] Orientation Straight 10/15/2024 10 :44 AM EST Last Filed Vital Signs Vital Sign Reading Time Taken Comments Blood Pressure 130/78 10/15/2024 11:16 AM EST Pulse 82 10/15/2024 11:16 AM EST Temperature 36.2 C (97.2 F) 03/10/2023 10:55 AM EDT Respiratory Rate 16 10/15/2024 11:16 AM EST Oxygen Saturation 98% 10/15/2024 11:16 AM EST Inhaled Oxygen Concentration - - Weight 81.6 kg (180 lb) 09/21/2022 6:29 PM EST Height 157.5 cm (5' 2 ) 09/21/2022 6:29 PM EST Body Mass Index 32.92 09/21/2022 6:29 PM EST Plan of Treatment Health Maintenance Due Date Last Done Comments DEPRESSION SCREENING 1967 HEPATITIS C SCREENING 1973 ZOSTER VACCINES (1 of 2) 1974 COLOGUARD 2000 FOBT 2000 SIGMOIDOSCOPY 2000 VIRTUAL COLONOSCOPY 2000 RSV VACCINE (1 - Risk 60-74 years 1-dose series) 2015 PNEUMOCOCCAL VACCINES (50+ years) (2 of 2 - PCV) 12/21/2016 12/22/2015 OSTEOPOROSIS SCREENING INITIAL (ONE-TIME) 2020 COVID-19 VACCINE (2 - Marla risk series) 06/22/2021 05/25/2021 Adult Td,Tdap Booster 01/01/2023 01/01/2013 FIT TEST 11/19/2023 11/19/2022 CREATININE LEVEL 08/24/2024 08/24/2023, 06/2023, 09/21/2022, Additional history exists POTASSIUM LEVEL 08/24/2024 08/24/2023, 02/0 06/2023, 09/21/2022, Additional history exists MAMMOGRAM 01/31/2025 01/31/2023, 01/08, 08/28/2020, Additional history exists BLOOD PRESSURE 04/14/2025 10/15/2024 INFLUENZA VACCINE (#1) 2025 , 10/18/2016, 09/15/2015, Additional history exists SCREENING FOR DIABETES 08/24/2026 08/24/2023, 2020 LIPID PANEL 08/24/2028 08/24/2023, 08/10, 07/17/2021, Additional history exists COLONOSCOPY 03/10/2033 03/10/2023, 04/10/2020 COLORECTAL CANCER SCREENING 03/10/2033 SMOKING STATUS SCREENING (Once After 26 Yrs) Completed 04/21/2023 HEPATITIS A VACCINES Aged Out No long er eligible based on patient's age to complete this topic HIB VACCINES Aged Out No longer eligi ble based on patient's age to complete this topic MENINGOCOCCAL VACCINES (ACWY) Aged Out No longer eligible based on patient's age to complete this topic MENINGOCOCCAL VACCINES (B) Aged Out N o longer eligible based on patient's age to complete this topic Medical Devices Not on file Procedures Procedure Name Priority Date/Time Associated Diagnosis Comments LIPID PANEL Routine 08/24/2023 8:52 AM EST Essential hypertension Elevated glucose Low vitamin D level BASIC METABOLIC PANEL Routine 08/24/2023 8:52 AM EST Essential hypertension Elevated glucose Low vitamin D level ENDOSCOPY, COLON 03/10/2023 11:2 4 AM EDT BI MAMMOGRAM SCREENING WITH TOMOSYNTHESIS WITH CAD (BILATERAL) Routine 01/31/2023 2:50 PM EDT Breast screening HC BLOOD OCCULT FECAL HGB DETER IA QUAL FECES 1-3 Routine 11/19/2022 11:00 AM EST Rectal bleeding LLQ abdominal pain from Last 3 Months or Most Recently Relevant to Health Maintenance Results * (ABNORMAL) Lipid panel (08/24/2023 8:52 AM EST) HDL 40 mg/dL [facility] Comment: Interpretation <40 mg/dL: Low HDL cholesterol (major risk factor for CHD) Greater than or equal to 60 mg/dL: High HDL cholesterol ( negative risk factor for CHD) HDL - cholesterol is affected by a number of factors, e.g. smoking, excerise, hormones, sex and age. CHOLESTEROL 184 0 - 240 mg/dL [facility] TRIGLYCERIDES 204(H) 30 - 160 mg/dL [facility] LDL 103 50 - 129 mg/dL [facility] Comment: LDL levels in terms of risk for coronary heart disease: <100 mg/dL: Optimal 100-129 mg/dL: Near or above optimal 130-159 mg/dL: Borderline high 160-189 mg/dL: High >190 mg/dL: Very High CARDIAC RISK RATIO 4.6(H) 3.3 - 4.4 C [facility] Blood 08/24/2023 8:52 AM EST 08/24/2023 8:54 AM EST us Farnaz [facility] BLOOD ORDERABLES Final Resu lt [address] [id number] * (ABNORMAL) Basic metabolic panel (08/24/2023 8:52 AM EST) SODIUM 138 133 - 146 mmol/L [facility] CHLORIDE 102 96 - 108 mmol/L [facility] POTASSIUM 4.2 3.3 - 5.1 mmol/L [facility] CO2 26 21 - 35 mmol/L [facility] BUN 15 6 - 19 mg/dL [facility] CREATININE 0.90 0.5 - 1.5 mg/dL [facility] GLUCOSE 130(H) 70 - 99 mg/dL [facility] CALCIUM 9.5 8.4 - 10.3 mg/dL [facility] EGFR 70 >59 mL/min/1.7 3m2 [facility] Comment:Estimated glomerular filtration rate calculated using the CKD-EPI refit equation. ANION GAP 14 10 - 20 mmol/L [facility] Blood 08/24/2023 8:52 AM EST 08/24/2023 8:54 AM EST us Farnaz [facility] BLOOD ORDERABLES Final Resu lt [facility] [address] [place] [address] * ENDOSCOPY, COLON (03/10/2023 11:24 AM EDT) Narrative Transcriptions Nidhi Espinal MD - 03/10/2023 11:24 AM EDT [facility] Patient Name: Bhavna Barnes MD:: NIDHI ESPINAL MD, Procedure Date: 03/10/2023 11:24 AM Date of : 1955 Age: 67 Admit Type: Outpatient Gender: Female Room: [place] [address] Referring MD: [place], SHANIQUA MONROY MD Exam Type: Colonoscopy Indications: Abdominal pain in the left lower quadrant, Rectal bleeding Medications: Propofol per Anesthesia Procedure: Informed consent was obtained from the patientafter discussion of the indications, limitations, alternatives, benefits, and risks of the procedure. Risks specifically discussed include but are not limited to medication reactions, missed lesions, bleeding, perforation, or the need for emergent surgery. Throughout the procedure, the patient's blood pressure, pulse, end-tidal CO2, and oxygensaturations were monitored continuously. The Olympus adult variable colonoscope CF-SV998P #5 was introduced through the anus and advanced to the terminal ileum, with identification of theappendiceal orifice and IC valve. The terminal ileum, ileocecal valve, appendiceal orifice, and rectum were photographed. The colonoscopy was performed without difficulty. The patient tolerated the procedurewell. The quality of the bowel preparation was excellent. The bowel preparation used was PEG/Miralax in Gatoraide and/or Pedialyte via split doseinstruction. Complications: No immediate complications. Estimated blood loss:None. Findings: The digital rectal exam was normal. Pertinent negatives include no palpable rectal lesions. External hemorrhoids were found during perianalexam. The hemorrhoids were medium-sized. Internal hemorrhoids were found duringretroflexion. The hemorrhoids were small. A single medium-sized angioectasia without bleeding was found at the hepatic flexure. Fulguration to ablate the lesion to prevent bleeding by argonplasma at 0.8 liters/minute and 30 cardoza was successful. The exam was otherwise without abnormality. The terminal ileum appeared normal. Impression: - External hemorrhoids. - Internal hemorrhoids. - A single non-bleeding colonic angioectasia.Treated with argon plasma coagulation (APC). - The examination was otherwise normal. - The examined portion of the ileum was normal. - No specimens collected. I SUSPECT BLEEDING WAS HEMORRHOIDAL OR POSSIBLY (RECURRANT) ISCHEMIA, BUT GIVEN UNCERTAINTY THIS PREVIOUSLY NOTED ECTASIA WAS ABLATED. Recommendation: - Repeat colonoscopy in 10 years for screening purposes. NIDHI ESPINAL MD 03/10/2023 12:29:52 PM This report has been signed electronically. Number of Addenda: 0 Note Initiated On: 03/10/2023 11:24 AM Procedure Code(s): --- Professional --- 87827, Colonoscopy, flexible; with control of bleeding, any method --- Technical --- 22819, Colonoscopy, flexible; with control of bleeding, any method Diagnosis Code(s): --- Professional --- K64.4, Residual hemorrhoidal skin tags K64.8, Other hemorrhoids K55.20, Angiodysplasia of colon withouthemorrhage R10.32, Left lower quadrant pain K62.5, Hemorrhage of anus and rectum --- Technical --- K64.4, Residual hemorrhoidal skin tags K64.8, Other hemorrhoids K55.20, Angiodysplasia of colon withouthemorrhage R10.32, Left lower quadrant pain K62.5, Hemorrhage of anus and rectum CPT copyright 2021 [employer]. All rights reserved. The codes documented in this report are preliminary and upon fund development manager reviewmay be revised to meet current compliance requirements. Procedure Date: 03/10/2023 11:24:[address] [place] [address] Noble Hill DO GI PROCEDURE ORDERABLES Final Re sult * (ABNORMAL) BI MAMMOGRAM SCREENING WITH TOMOSYNTHESIS WITH CAD (BILATERAL) (01/31/2023 2:50 PM EDT) Anatomical Region Laterality Modality Breast Left, Breast Right, Breast Bilateral Bila teral Mammography 01/31/2023 7:59 PM EDT Impressions 01/31/2023 8:17 PM EDT RIGHT BREAST: Negative, no specific mammographic evidence of malignancy. Normal interval follow-up is recommended in 12 months. LEFT BREAST: 2 adjacent asymmetries in the central breast on the CC view at 6 cm from the nipple, tentatively identified on the MLO view. Patient will be called back for additional imaging including full field ML 90 degrees and spot CC and MLO views, followed by targeted ultrasound if needed. BI-RADS: BI-RADS CATEGORY: 0 - Incomplete. Need additional imaging evaluation. DENSITY: There are scattered fibroglandular densities. RIGHT RECOMMENDATION DUE DATE: 12 Months Recommendation: Right Mammography Screening LEFT RECOMMENDATION DUE DATE: 1 Month Recommendation: Left Additional Imaging Narrative 01/31/2023 8:17 PM EDT STUDY: BI MAMMOGRAM SCREENING WITH TOMOSYNTHESIS WITH CAD (BILATERAL) TECHNIQUE: Bilateral full-field digital screening mammography is obtained and read in conjunction with computer-aided detection. Tomosynthesis as well as 2-D C view imaging were obtained. COMPARISON: Comparison made to multiple prior, most recent January 25, 2022, and most remote August 28, 2012. BREAST COMPOSITION: There are scattered areas of fibroglandular density RIGHT BREAST: No significant masses, suspicious calcifications or other abnormalities are seen. LEFT BREAST: History of previous biopsy. There are 2 adjacent asymmetries measuring 0.6 cm and 0.7 cm on the CC view in the central breast along the retroareolar plane at 6.2 cm from the nipple (CC image 17/72); they are tentatively identified on the MLO view at about 4.5 cm from the nipple in the central breast, above and below to the nipple line (MLO 14/81). No suspicious calcifications are seen. us Shaniqua Monroy MD IMG MG EXAMS Final Resul t * Fecal immunochemical test x1 (FIT) (11/19/2022 11:00 AM EST) Immuno Fecal Occult Negative Negative [facility] Stool (Stool) 11/19/2022 11: 00 AM EST 11/19/2022 12:14 PM EST Aura Soler NP BODY FLUIDS AND STOOLS OR DERABLES Final Result [facility] [address] [place] [address] from Last 3 Months or Most Recently Relevant to Health Maintenance Insurance MEDICARE PART A & B Member Subscriber Plan / Payer (Ef fective 2020-Present) Name:Bhavna Conde Member ID:[id number] Relation to Subscriber:Self Name:Bhavna Conde Subscriber ID:[id number] Payer ID:[id number] Group ID:Not on file Type:Medicare Address: [facility] [employer] [place] [address] [place] [address] [employer] MEDICARE PART A & B [employer] MEDICARE PART A & B MEDICARE PART A & B MEDICARE PART A & B CHOICE PLUS [place] MEDICARE PART A & B MEDICARE PART A & B CHOICE PLUS MEDICARE PART A & B [place] [employer] MEDICARE PART A & B [employer] Advance Directives For more information, please contact: [phone] (9AM - 5PM [place], Tuesday-Tuesday) * Full Code (Confirmed) (Latest Code Status on File) Date Activated Date Inactivated Comments 02/13/2020 4:09 PM 04/10/2020 12:33 PM Question Answer Comments Code Status Confirmed With: Patient Care Teams Assistant Professor Of Philosophy Relationship Specialty Start Date End Date Shaniqua Monroy MD [address] [place] [address] [email or web address] PCP - General Internal Medicine 01/22/22 Casey Lofton MD Gastroenterology 02/14/20 Additional Source Comments The information contained in this document represents components of the legal health record. It is not the complete legal health record.[facility]
--- OUTSIDE RECORDS SUMMARY | 2025-06-28 09:22 | XMS_ITS | Encounter Summary ---
Author Organization [facility] Address [address] [place] [phone] Phone Care Team Providers Care Nitrate Operator Name Role Phone Linda Holloway MD Unavailable [phone] Kenisha Flores MD Unavailable + Salena Cardenas MD Unavailable [phone] Shay Dao MD Unavailable [phone] Farnaz Aranda Primary Care Provider [phone] Casey Lofton MD Unavailable Unavailabl e Barbara Monroy MD Primary Care Provider Encounter Details Date Type Department Care Team (Late st Contact Info) Description 09/24/2020 Procedure Pass [facility], Ct Scan - [address] [address] Social History Tobacco Use Types Packs/Day Years [...] on filedocumented in this encounter Care Teams Nitrate Operator Relationship Specialty Start Date End Date Farnaz Aranda PA [address] [place] [address] [email or web address] PCP - General Unknown Provider Specialty 07/23/19 01/21/22 Barbara Monroy MD [address] [place] [address] PCP - General Internal Medicine 01/22/22 Linda Holloway MD 15 [facility] [place] [address] Historical LMR Provider 07/25/17 10/17/21 Kenisha Flores MD [address] [place] [address] [email or web address] Historical LMR Provider 07/25/17 10/17/21 Salena Cardenas MD [address] [address] [email or web address] Historical LMR Provider 07/25/17 10/17/21 Shay Dao MD [address] [place] [address] Historical LMR Provider 07/25/17 10/17/21 Casey Lofton MD Gastroenterology 02/14/20 documented as of this encounter Additional Source Comments The information contained in this document represents components of the legal health record. It is not the complete legal health record.[facility]
--- OUTSIDE RECORDS SUMMARY | 2025-06-28 09:22 | XMS_ITS | Encounter Summary ---
Author Organization [facility] Address [address] [place] [address] Phone Care Team Providers Care Manager Rail Name Role Phone Linda Holloway MD Unavailable [phone] Kenisha Flores MD Unavailable + Salena Cardenas MD Unavailable [phone] Shay Dao MD Unavailable [phone] Farnaz Aranda Primary Care Provider [phone] Casey Lofton MD Unavailable Unavailabl e Barbara Monroy MD Primary Care Provider Encounter Details Date Type Department Care Team (Latest Contact Info) Description 07/30/2019 Transcribe Orders [facility] [address] [place] [phone] Farnaz Aranda PA [address] [place] [phone] [email or web address] Serum calcium elevated (Primary Dx); Hypertension, unspecified type; Elevated BP without diagnosis of hypertension Social History Tobacco Use Types Packs/Day Years [...] documented as of this encounter Results * Hemoglobin A1c (07/30/2019 8:49 AM EDT) HEMOGLOBIN A1C 5.8 4.3 - 5.8 % [facility] Blood 07/30/2019 8:49 AM EDT 07/30/2019 10:08 AM EDT us Farnaz [facility] BLOOD ORDERABLES Final Resu lt Performing Organization Address City/[facility]/ZIP Co de Phone Number [address] [address] * (ABNORMAL) 25-OH vitamin D (07/30/2019 8:49 AM EDT) Pathologist [facility] 25 [place] VIT D (TOTAL) 11(L) 30 - 60 ng/mL [facility] Blood 07/30/2019 8:49 AM EDT 07/30/2019 10:08 AM EDT us Farnaz [facility] BLOOD ORDERABLES Final Resu lt Performing Organization Address City/[facility]/ZIP Co de Phone Number [address] [address] * (ABNORMAL) Basic metabolic panel (07/30/2019 8:49 AM EDT) Pathologist [facility] SODIUM 143 133 - 146 mmol/L [facility] CHLORIDE 103 96 - 108 mmol/L [facility] POTASSIUM 4.5 3.3 - 5.1 mmol/L [facility] CO2 28 21 - 35 mmol/L [facility] BUN 11 6 - 19 mg/dL [facility] CREATININE 0.80 0.5 - 1.5 mg/dL [facility] GLUCOSE 136(H) 70 - 99 mg/dL [facility] CALCIUM 9.7 8.4 - 10.3 mg/dL [facility] EGFR 78 >59 mL/min/1.7 3m2 [facility] Comment:If patient is black, multiply result by 1.159. Estimated glomerular filtration rate calculated using the CKD-EPI equation. ANION GAP 17 10 - 20 mmol/L [facility] Blood 07/30/2019 8:49 AM EDT 07/30/2019 10:08 AM EDT us Farnaz [facility] BLOOD ORDERABLES Final Resu lt [facility] [address] [place] [address] documented in this encounter Visit Diagnoses Diagnosis Serum calcium elevated- Primary Hypercalcemia Hypertension, unspecified type Elevated BP without diagnosis of hypertension documented in this encounter Additional Health Concerns Infection Onset Date Last Indicated Resolved Time Clearance-CoV Comment:Auto-resolved with negative COVID-19 PCR 02/13/2020 02/13/2020 02/13/2020 4:00 PM E DT CoV-Risk Comment:COVID-19 test pending Adm from home 02/13/2020 02/13/2020 02/14/2020 12:27 PM EDT documented as of this encounter Care Teams Manager Rail Relationship Specialty Start Date End Date Farnaz Aranda PA [address] [place] [address] [email or web address] PCP - General Unknown Provider Specialty 07/23/19 01/21/22 Barbara Monroy MD [address] [place] [address] [email or web address] PCP - General Internal Medicine 01/22/22 Linda Holloway MD 15 [facility], [address] [place] [address] [email or web address] Historical LMR Provider 07/25/17 10/17/21 Kenisha Flores MD [address] [place] [address] [email or web address] Historical LMR Provider 07/25/17 10/17/21 Salena Cardenas MD [address] [address] [email or web address] Historical LMR Provider 07/25/17 10/17/21 Shay Dao MD [address] [place] [address] Historical LMR Provider 07/25/17 10/17/21 Casey Lofton MD Gastroenterology 02/14/20 documented as of this encounter Additional Source Comments The information contained in this document represents components of the legal health record. It is not the complete legal health record.[facility]
--- OUTSIDE RECORDS SUMMARY | 2025-06-28 09:22 | XMS_ITS | Encounter Summary ---
Author Organization [facility] Address [address] [place] [address] Phone Care Team Providers Care Assistant Speech Language Pathologist Name Role Phone Linda Holloway MD Unavailable [phone] Kenisha Flores MD Unavailable + Salena Cardenas MD Unavailable [phone] Shay Dao MD Unavailable [phone] Farnaz Aranda Primary Care Provider [phone] Casey Lofton MD Unavailable Unavailabl e Barbara Monroy MD Primary Care Provider Reason for Referral * MRI/CAT Scan - Closed Specialty Diagnoses / Procedures Referred By Contlina t Referred To Contact Radiology Diagnoses Pulmonary nodule Procedures CT Chest Farnaz Aranda PA Phone: tel: fax: [email or web address] Referral ID Status Reason Start Date Expiration Date Visits Re quested Visits Authorized [id number] Closed 06/29/2021 06/29/2022 1 1 Encounter Details Date Type Department Care Team (Latest Contact Info) Description 06/29/2021 Transcribe Orders [facility] Department [address] [place], [place] [id number] Farnaz Aranda PA [address] [place] [address] [email or web address] Pulmonary nodule (Primary Dx) Social History Tobacco [...] encounter Results * CT CHEST WITHOUT CONTRAST (01/25/2022 7:43 AM EDT) Anatomical Region Laterality Modality Chest Computed Tomogra phy 01/25/2022 9:20 AM EDT Impressions 01/25/2022 10:10 AM EDT Multiple small pulmonary nodules measuring up to 0.2 cm as above, some of them new and some of them resolved from 2020. Based on Fleischner Criteria 2017, new multiple solid pulmonary nodules measuring <6 mm in low risk patients do not require further imaging studies. However, patients with a history of smoking/asbestos/radiation exposure or a 1st degree relative with lung cancer should consider having a follow-up non-contrast CT in 1 year. If unchanged, no further follow-up studies would be indicated. Note that patients with an infectious process, personal history of cancer, and those with advanced age/co-morbidities may require adjustments to these recommendations. Narrative 01/25/2022 10:[address] CHEST WITHOUT CONTRAST TECHNIQUE: Multidetector CT of the chest was performed without intravenous contrast using tailored dose modulation. COMPARISON: Chest CT on July 18, 2020 FINDINGS: Devices/Tubes/Lines: None. Lungs: Central airways are clear. No pulmonary consolidation. Small pulmonary nodules (measuring about 0.2 cm in size): Right middle lobe (5:151), right lower lobe (5:180), left lower lobe (groundglass nodule, 5:195) are new. Small 0.2 cm pulmonary nodule in the posterior left lower lobe (5:199) is unchanged. Additional small pulmonary nodules seen on the previous study are no longer seen and most likely represented inflammatory process. Pleura: No pleural effusion or pneumothorax. Mediastinum: No thyroid nodules. Heart and pericardium are normal. Thoracic cord is normal in caliber. Scattered atherosclerotic calcifications along the thoracic aorta. Lymph Nodes: No enlarged supraclavicular, axillary, mediastinal, or hilar lymph nodes. Note that previously seen prominent left supraclavicular lymph nodes have decreased in size Upper Abdomen: Absence of intravenous contrast limits sensitivity for detecting solid organ findings. Vascular calcifications. Chest Wall: No chest wall mass. Bones: No suspicious lytic or blastic lesions. Procedure Note Tiara Yuen MD - 01/25/2022 CT CHEST WITHOUT CONTRAST TECHNIQUE: Multidetector CT of the chest was performed without intravenouscontrast using tailored dose modulation. COMPARISON: Chest CT on July 18, 2020 FINDINGS: Devices/Tubes/Lines: None. Lungs: Central airways are clear. No pulmonary consolidation. Smallpulmonary nodules (measuring about 0.2 cm in size): Right middle lobe(5:151), right lower lobe (5:180), left lower lobe (groundglass nodule,5:195) are new. Small 0.2 cm pulmonary nodule in the posterior left lowerlobe (5:199) is unchanged. Additional small pulmonary nodules seen on theprevious study are no longer seen and most likely represented inflammatoryprocess. Pleura: No pleural effusion or pneumothorax. Mediastinum: No thyroid nodules. Heart and pericardium are normal.Thoracic cord is normal in caliber. Scattered atheroscleroticcalcifications along the thoracic aorta. Lymph Nodes: No enlarged supraclavicular, axillary, mediastinal, or hilarlymph nodes. Note that previously seen prominent left supraclavicularlymph nodes have decreased in size Upper Abdomen: Absence of intravenous contrast limits sensitivity fordetecting solid organ findings. Vascular calcifications. Chest Wall: No chest wall mass. Bones: No suspicious lytic or blastic lesions. IMPRESSION: Multiple small pulmonary nodules measuring up to 0.2 cm as above, some ofthem new and some of them resolved from 2020. Based on Fleischner Criteria 2017, new multiple solid pulmonary nodulesmeasuring <6 mm in low risk patients do not require further imagingstudies. However, patients with a history of smoking/asbestos/radiationexposure or a 1st degree relative with lung cancer should consider havinga follow-up non-contrast CT in 1 year. If unchanged, no further follow-upstudies would be indicated. Note that patients with an infectiousprocess, personal history of cancer, and those with advancedage/co-morbidities may require adjustments to these recommendations. Farnaz LOGAN IMG CT CHEST Final Result documented in this encounter Visit Diagnoses Diagnosis Pulmonary nodule- Primary Other diseases of lung, not elsewhere classified Pulmonary nodule Other diseases of lung, not elsewhere classified documented in this encounter Care Teams Assistant Speech Language Pathologist Relationship Specialty Start Date End Date Farnaz Aranda PA [address] [place] [address] [email or web address] PCP - General Unknown Provider Specialty 07/23/19 01/21/22 Barbara Monroy MD 15 [place] [address] [email or web address] PCP - General Internal Medicine 01/22/22 Linda Holloway MD [address] [place] [address], [address] [place] [address] Historical LMR Provider 07/25/17 10/17/21 Kenisha Flores MD [address] [place] [address] [email or web address] Historical LMR Provider 07/25/17 10/17/21 Salena Cardenas MD [address] [place] [address] [email or web address] Historical LMR Provider 07/25/17 10/17/21 Shay Dao MD [address] [place] [address] Historical LMR Provider 07/25/17 10/17/21 Casey Lofton MD Gastroenterology 02/14/20 documented as of this encounter Additional Source Comments The information contained in this document represents components of the legal health record. It is not the complete legal health record.[facility]
--- OUTSIDE RECORDS SUMMARY | 2025-06-28 09:22 | XMS_ITS | Encounter Summary ---
Author Organization [facility] Address [address] [place] [address] Phone Care Team Providers Care Electrical Tech Name Role Phone Linda Holloway MD Unavailable [phone] Kenisha Flores MD Unavailable + Salena Cardenas MD Unavailable [phone] Shay Dao MD Unavailable [phone] Farnaz Aranda Primary Care Provider [phone] Casey Lofton MD Unavailable Unavailabl e Barbara Monroy MD Primary Care Provider [phone] Encounter Details Date Type Department Care Team (Late st Contact Info) Description 09/24/2020 Procedure Pass [facility], Ct Scan - [address] [address] Social History Tobacco Use Types Packs/Day Years [...] on filedocumented in this encounter Care Teams Electrical Tech Relationship Specialty Start Date End Date Farnaz Aranda PA [address] [place] [address] [email or web address] PCP - General Unknown Provider Specialty 07/23/19 01/21/22 Barbara Monroy MD 15 [place] [address] PCP - General Internal Medicine 01/22/22 Linda Holloway MD 15 [facility], [facility] [place] [address] Historical LMR Provider 07/25/17 10/17/21 Kenisha Flores MD [address] [place] [id number] [email or web address] Historical LMR Provider 07/25/17 10/17/21 Salena Cardenas MD [address] [address] [email or web address] Historical LMR Provider 07/25/17 10/17/21 Shay Dao MD [address] [place] [address] Historical LMR Provider 07/25/17 10/17/21 Casey Lofton MD Gastroenterology 02/14/20 documented as of this encounter Additional Source Comments The information contained in this document represents components of the legal health record. It is not the complete legal health record.[facility]
--- OUTSIDE RECORDS SUMMARY | 2025-06-28 09:22 | XMS_ITS | Encounter Summary ---
Author Organization [facility] Address [address] [place] [address] Phone Care Team Providers Care Vulcanizer Operator Name Role Phone Linda Holloway MD Unavailable [phone] Kenisha Flores MD Unavailable + Salena Cardenas MD Unavailable [phone] Shay Dao MD Unavailable [phone] Farnaz Aranda Primary Care Provider [phone] Casey Lofton MD Unavailable Unavailabl e Barbara Monroy MD Primary Care Provider Encounter Details Date Type Department Care Team (Latest Contact Info) Description 12/13/2019 Transcribe Orders Virtual Department 30 [place] [address] Farnaz Aranda PA [address] [place] [address] [email or web address] Shortness of breath (Primary Dx) Social History Tobacco Use Types [...] documented as of this encounter Results * Pulmonary Function Test Reason for Exam: Dyspnea/Shortness of Breath (SHORTNESS OF BREATH, RULE OUTASTHMA/COPD); Type of PFT Test: Lung Volumes, DLCO, Spirometry with bronchodilator; Performing Location: [facility] (07/08/2020 7:53 AM EDT) FEV1 2.26 liters FVC 2.67 liters FEV1/FVC 85 % TLC 4.10 liters DLCO 19.0 ml/mmHg sec Anatomical Region Laterality Modality Other Impressions 07/08/2020 7:53 AM EDT PULMONARY FUNCTION STUDIES Full pulmonary function studies were performed on this 65 y.o. year-old female for evaluation of dyspnea. Review of the medical record reveals that the patient is essentially a never smoker. Prior pulmonary function studies are not available for comparison. SPIROMETRY: The FEV1 is normal at 2.26 L or 115% predicted. The FVC is normal at 2.67 L or 98% predicted. The FEV1/FVC ratio is normal at 85%. After the administration of a bronchodilator agent, there is no significant change. Mid flows and peak flows are normal. FLOW-VOLUME LOOPS: Evaluation of the flow-volume loops reveals normal morphology of both the inspiratory and expiratory limbs with no significant difference when comparing the tracings performed pre- and post-bronchodilator. LUNG VOLUME MEASUREMENTS BY NITROGEN WASHOUT: The total lung capacity is normal at 4.10 L or 92% predicted. The functional residual capacity is mildly impaired at 1.77 L or 79% predicted. Of note, the ERV is markedly impaired, likely representing the imprint of body habitus. DIFFUSION CAPACITY: The diffusion capacity is normal at 19.0 mL/mmHg sec or 90% predicted. Resting oxygen saturation is 97% on room air. IMPRESSION: This represents normal pulmonary function studies. Farnaz LOGAN PFT ORDERABLES Final Result documented in this encounter Visit Diagnoses Diagnosis Shortness of breath- Primary Shortness of breath documented in this encounter Additional Health Concerns Infection Onset Date Last Indicated Resolved Time Clearance-CoV Comment:Auto-resolved with negative COVID-19 PCR 02/13/2020 02/13/2020 02/13/2020 4:00 PM E DT CoV-Risk Comment:COVID-19 test pending Adm from home 02/13/2020 02/13/2020 02/14/2020 12:27 PM EDT documented as of this encounter Care Teams Vulcanizer Operator Relationship Specialty Start Date End Date Farnaz Aranda PA [address] [place] [address] [email or web address] PCP - General Unknown Provider Specialty 07/23/19 01/21/22 Barbara Monroy MD 15 [place] [address] PCP - General Internal Medicine 01/22/22 Linda Holloway MD 15 [facility], [facility] [place] [address] Historical LMR Provider 07/25/17 10/17/21 Kenisha Flores MD [address] [place] [address] [email or web address] Historical LMR Provider 07/25/17 10/17/21 Salena Cardenas MD [address] [address] [email or web address] Historical LMR Provider 07/25/17 10/17/21 Shay Dao MD 41 [place] [address] Historical LMR Provider 07/25/17 10/17/21 Casey Lofton MD Gastroenterology 02/14/20 documented as of this encounter Additional Source Comments The information contained in this document represents components of the legal health record. It is not the complete legal health record.[facility]
--- OUTSIDE RECORDS SUMMARY | 2025-06-28 09:22 | XMS_ITS | Encounter Summary ---
Author Organization [facility] Address [address] [place] [address] Phone Care Team Providers Care Search Engine Marketing Specialist Name Role Phone Casey Lofton MD [facility] e Barbara Monroy MD Primary Care Provider [phone] Encounter Details Date Type Department Care Team (Late st Contact Info) Description 09/15/2022 Procedure Pass [facility], Ct Scan - [address] [address] Social History Tobacco Use Types Packs/Day Years [...] on filedocumented in this encounter Care Teams Search Engine Marketing Specialist Relationship Specialty Start Date End Date Barbara Monroy MD [address] [place] [address] [email or web address] PCP - General Internal Medicine 01/22/22 Casey Lofton MD Gastroenterology 02/14/20 documented as of this encounter Additional Source Comments The information contained in this document represents components of the legal health record. It is not the complete legal health record.[facility]
--- OUTSIDE RECORDS SUMMARY | 2025-06-28 09:22 | XMS_ITS | Encounter Summary ---
Author Organization [facility] Address [address] [place] [address] Phone Care Team Providers Care Rn Mds Name Role Phone Casey Lofton MD, Christine D MD Primary Care Provider [phone] Encounter Details Date Type Department Care Team (Late st Contact Info) Description 09/21/2022 Procedure Pass [facility], Ct Scan - [address] [address] Social History Tobacco Use Types Packs/Day Years [...] AM EST documented as of this encounter Functional Status * Calculated C-SSRS Risk Score (Lifetime/Recent) Answer Date of Assessment Author No Risk Indicated 09/21/2022 3:31 PM EST Dana Gandara RN * Bond Suicide Severity Rating Scale (Screener/Recent Self-Report) Question Answer Date of Assessment Author 1. Wish to be (Past 1 Month) No 09/21/2022 3:31 PM Dana Mcmahan RN 2. Non-Specific Active Suici lazara Thoughts (Past 1 Month) No 09/21/2022 3:31 PM Traci Mcmahan cia, RN 6. Suicidal Behavior (Lifetime) No 2 3:31 PM Dana Mcmahan RN documented as of this encounter Plan of Treatment Not on file documented as of this encounter Visit Diagnoses Not on filedocumented in this encounter Care Teams Rn Mds Relationship Specialty Start Date End Date Barbara Monroy MD [address] [place] [address] [email or web address] PCP - General Internal Medicine 01/22/22 Casey Lofton MD Gastroenterology 02/14/20 documented as of this encounter Additional Source Comments The information contained in this document represents components of the legal health record. It is not the complete legal health record.[facility]
--- OUTSIDE RECORDS SUMMARY | 2025-06-28 09:22 | XMS_ITS | Encounter Summary ---
Author Organization [facility] Address [address] [place] [address] Phone Care Team Providers Care Photo Manager Name Role Phone Linda Holloway MD Unavailable [phone] Kenisha Flores MD Unavailable + Salena Cardenas MD Unavailable [phone] Shay Dao MD Unavailable [phone] Kenisha Flores MD Primary Care Prov ider Farnaz Aranda Primary Care Provider [phone] Casey Lofton MD Unavailable Unavailabl e Barbara Monroy MD Primary Care Provider [phone] Encounter Details Date Type Department Care Team (Latest Contact Info) Description 07/16/2019 Transcribe Orders [facility] [address] [place] [address] Farnaz Aranda PA [address] [place] [address] [email or web address] High glucose (Primary Dx); Routine general medical examination at a health care facility; Elevated BP without diagnosis of hypertension; Abdominal pain, unspecified abdominal location Social History Tobacco Use Types Packs/Day Years [...] as of this encounter Results * (ABNORMAL) URINALYSIS WITH SEDIMENT (07/16/2019 9:32 AM EDT) WBC NONE SEEN NONE SEEN /hpf [facility] RBC 0-2(A) NONE SEEN /hpf [facility] URINE EPITHELIAL 0-4(A) NONE SEEN [facility] MUCUS NONE SEEN NONE SEEN /hpf [facility] BACTERIA NONE SEEN NONE SEEN [facility] COLOR Yellow Yellow [facility] CLARITY Clear [facility] GLUCOSE Negative Negative [facility] BILI Negative Negative [facility] KETONES Negative Negative [facility] SPECIFIC GRAVITY 1.015 1.005 - 1.030 [facility] BLOOD Negative Negative [facility] PH 6.0 5.0 - 8.0 [facility] Protein-UA Negative Negative [facility] NITRITE Negative Negative [facility] Leukocyte esterase, ur Negative Negative [facility] Urine (Urine) 07/16/2019 9:3 2 AM EDT 07/16/2019 9:44 AM EDT us Farnaz LOGAN URINE ORDERABLES Final Result Performing Organization Address City/State/[facility] Co de Phone Number [address] [phone] * (ABNORMAL) CBC and differential (07/16/2019 9:32 AM EDT) WBC 10.18 3.40 - 11.20 K/uL [facility] RBC 4.97(H) 3.80 - 4.80 M/uL [facility] HGB 14.4 12.0 - 15.0 g/dL [facility] HCT 43.4 36.0 - 46.0 % [facility] PLT 294 130 - 400 K/uL [facility] MCV 87.3 79.0 - 98.0 [facility] MCH 29.0 27.0 - 34.8 pg [facility] MCHC 33.2 31.5 - 36.0 g/dL [facility] RDW 12.7 10.8 - 14.6 % [facility] MPV 9.6 9.4 - 12.4 [facility] NRBC 0.00 0.00 /100 WBCs [facility] ABSOLUTE NRBC 0.00 0.00 K/uL [facility] DIFF METHOD Auto [facility] NEUTS 64.2 45.30 - 77.70 % [facility] LYMPHS 25.7 12.30 - 39.70 % [facility] MONOS 5.9 4.10 - 12.80 % [facility] EOS 2.4 0 - 7.2 % [facility] BASOS 1.3 0 - 2.80 % [facility] Granulocytes, immature (%) 0.5 0.0 - 0.9 % [facility] ABSOLUTE NEUTS 6.54 1.40 - 7.70 K/uL [facility] ABSOLUTE LYMPHS 2.62 0.60 - 3.20 K/uL [facility] ABSOLUTE MONOS 0.60(H) 0.11 - 0.59 K/uL [facility] ABSOLUTE EOS 0.24 0.01 - 0.50 K/uL [facility] ABSOLUTE BASOS 0.13(H) 0.00 - 0.08 K/uL [facility] Granulocytes, immature 0.05 0.00 - 0.05 K/uL [facility] Blood 07/16/2019 9:32 AM EDT 07/16/2019 9:44 AM EDT us Farnaz LOGAN LAB BLOOD ORDERABLES Final Resu lt [facility] [address] [place] [address] * TSH with reflex (07/16/2019 9:32 AM EDT) TSH 2.89 0.27 - 4.20 uIU/mL [facility] Blood 07/16/2019 9:32 AM EDT 07/16/2019 9:44 AM EDT Farnaz LOGAN LAB BLOOD ORDERABLES Final Resu lt Performing Organization Address [facility] Co de Phone Number [address] [address] * (ABNORMAL) Lipid panel (07/16/2019 9:32 AM EDT) HDL 43 mg/dL [facility] Comment: Interpretation <40 mg/dL: Low HDL cholesterol (major risk factor for CHD) Greater than or equal to 60 mg/dL: High HDL cholesterol ( negative risk factor for CHD) HDL - cholesterol is affected by a number of factors, e.g. smoking, excerise, hormones, sex and age. CHOLESTEROL 234 0 - 240 mg/dL [facility] TRIGLYCERIDES 315(H) 30 - 160 mg/dL [facility] LDL 128 50 - 129 mg/dL [facility] Comment: LDL levels in terms of risk for coronary heart disease: <100 mg/dL: Optimal 100-129 mg/dL: Near or above optimal 130-159 mg/dL: Borderline high 160-189 mg/dL: High >190 mg/dL: Very High CARDIAC RISK RATIO 5.4(H) 3.3 - 4.4 C [facility] Blood 07/16/2019 9:32 AM EDT 07/16/2019 9:44 AM EDT Farnaz LOGAN LAB BLOOD ORDERABLES Final Resu lt Performing Organization Address City/[facility] Co de Phone Number [address] [address] * (ABNORMAL) Comprehensive metabolic panel (07/16/2019 9:32 AM EDT) SODIUM 141 133 - 146 mmol/L [facility] POTASSIUM 4.2 3.3 - 5.1 mmol/L [facility] CHLORIDE 100 96 - 108 mmol/L [facility] CO2 28 21 - 35 mmol/L [facility] BUN 12 6 - 19 mg/dL [facility] CREATININE 0.60 0.5 - 1.5 mg/dL [facility] GLUCOSE 120(H) 70 - 99 mg/dL [facility] ALBUMIN 4.4 3.9 - 4.8 g/dL [facility] TOTAL PROTEIN 7.5 6.5 - 8.0 g/dL [facility] CALCIUM 10.4(H) 8.4 - 10.3 mg/dL [facility] ALKALINE PHOSPHATASE 91 39 - 117 U/L [facility] TOTAL BILIRUBIN 0.4 0.0 - 1.2 mg/dL [facility] AST 24 0 - 37 U/L [facility] ALT 21 0 - 40 U/L [facility] GLOBULIN 3.1 1 - 4.8 g/dL [facility] EGFR 96 >59 mL/min/1.7 3m2 [facility] Comment:If patient is black, multiply result by 1.159. Estimated glomerular filtration rate calculated using the CKD-EPI equation. ANION GAP 17 10 - 20 mmol/L [facility] Blood 07/16/2019 9:32 AM EDT 07/16/2019 9:44 AM EDT us Farnaz LOGAN LAB BLOOD ORDERABLES Final Resu lt [facility] [address] [place] [address] documented in this encounter Visit Diagnoses Diagnosis High glucose- Primary Routine general medical examination at a health care facility Elevated BP without diagnosis of hypertension Abdominal pain, unspecified abdominal location documented in this encounter Additional Health Concerns Infection Onset Date Last Indicated Resolved Time Clearance-CoV Comment:Auto-resolved with negative COVID-19 PCR 02/13/2020 02/13/2020 02/13/2020 4:00 PM E DT CoV-Risk Comment:COVID-19 test pending Adm from home 02/13/2020 02/13/2020 02/14/2020 12:27 PM EDT documented as of this encounter Care Teams Photo Manager Relationship Specialty Start Date End Date Kenisha Flores MD [address] [place] [address] [email or web address] PCP - General 10/13/17 07/22/19 Farnaz Aranda PA [address] [place] [address] [email or web address] PCP - General Unknown Provider Specialty 07/23/19 01/21/22 Barbara Monroy MD [address] [place] [address] PCP - General Internal Medicine 01/22/22 Linda Holloway MD [address] [address] [email or web address] Historical LMR Provider 07/25/17 10/17/21 Kenisha Flores MD [address] [place] [id number] [email or web address] Historical LMR Provider 07/25/17 10/17/21 Salena Cardenas MD [address] [address] [email or web address] Historical LMR Provider 07/25/17 10/17/21 Shay Dao MD [address] [place] [address] Historical LMR Provider 07/25/17 10/17/21 Casey Lofton MD Gastroenterology 02/14/20 documented as of this encounter Additional Source Comments The information contained in this document represents components of the legal health record. It is not the complete legal health record.[facility]
--- OUTSIDE RECORDS SUMMARY | 2025-06-28 09:22 | XMS_ITS | Encounter Summary ---
Author Organization [facility] Address [address] [place] [address] Phone Care Team Providers Care Bacteriology Technician Name Role Phone Linda Holloway MD Unavailable [phone] Kenisha Flores MD Unavailable + Salena Cardenas MD Unavailable [phone] Shay Dao MD Unavailable [phone] Farnaz Aranda Primary Care Provider [phone] Casey Lofton MD Unavailable Unavailabl e Barbara Monroy MD Primary Care Provider [phone] Encounter Details Date Type Department Care Team (Latest Contact Info) Description 02/13/2020 Transcribe Orders [facility] Specimen Processing [address] [place] [address] Carley Falcon PA-C [address] [place] [address] [email or web address] COVID-19 (Primary Dx) Social History Tobacco Use Types [...] documented as of this encounter Results * COVID-19 PCR Order (02/13/2020 2:51 PM EDT) Specimen Source [facility]AL [facility] COVID Testing Status In-house testing being performed [facility] Other 02/13/2020 2:51 PM EDT 02/13/2020 3:06 PM EDT us Carley Falcon PA-C BODY FLUIDS AND STOOLS OR DERABLES Final Result [facility] [address] [place] [address] documented in this encounter Visit Diagnoses Diagnosis COVID-19- Primary documented in this encounter Additional Health Concerns Infection Onset Date Last Indicated Resolved Time Clearance-CoV Comment:Auto-resolved with negative COVID-19 PCR 02/13/2020 02/13/2020 02/13/2020 4:00 PM E DT CoV-Risk Comment:COVID-19 test pending Adm from home 02/13/2020 02/13/2020 02/14/2020 12:27 PM EDT documented as of this encounter Care Teams Bacteriology Technician Relationship Specialty Start Date End Date Farnaz Aranda PA [address] [place] [address] [email or web address] PCP - General Unknown Provider Specialty 07/23/19 01/21/22 Barbara Monroy MD [address] [place] [address] [email or web address] PCP - General Internal Medicine 01/22/22 Linda Holloway MD [address] [place] [address], 2nd [place] [address] Historical LMR Provider 07/25/17 10/17/21 Kenisha Flores MD [address] [place] [address] [email or web address] Historical LMR Provider 07/25/17 10/17/21 Salena Cardenas MD [address] [address] [email or web address] Historical LMR Provider 07/25/17 10/17/21 Shay Dao MD [address] [place] [address] Historical LMR Provider 07/25/17 10/17/21 Casey Lofton MD Gastroenterology 02/14/20 documented as of this encounter Additional Source Comments The information contained in this document represents components of the legal health record. It is not the complete legal health record.[facility]
--- OUTSIDE RECORDS SUMMARY | 2025-06-28 09:22 | XMS_ITS | Encounter Summary ---
Author Organization [facility] Address [address] [place] [address] Phone Care Team Providers Care Student Union Consultant Name Role Phone Casey Lofton MD [facility] e Barbara Monroy MD Primary Care Provider [phone] Encounter Details Date Type Department Care Team (Late st Contact Info) Description 08/17/2022 Procedure Pass [facility], Ct Scan - [address] [address] Social History Tobacco Use Types Packs/Day Years [...] on filedocumented in this encounter Care Teams Student Union Consultant Relationship Specialty Start Date End Date Barbara Monroy MD [address] [place] [address] [phone] [email or web address] PCP - General Internal Medicine 01/22/22 Casey Lofton MD Gastroenterology 02/14/20 documented as of this encounter Additional Source Comments The information contained in this document represents components of the legal health record. It is not the complete legal health record.[facility]
--- OUTSIDE RECORDS SUMMARY | 2025-06-28 09:22 | XMS_ITS | Encounter Summary ---
Author Organization [facility] Address [address] [place] [address] Phone Care Team Providers Care Dining Manager Name Role Phone Linda Holloway MD Unavailable [phone] Kenisha Flores MD Unavailable + Salena Cardenas MD Unavailable [phone] Shay Dao MD Unavailable [phone] Farnaz Aranda Primary Care Provider [phone] Casey Lofton MD Unavailable Unavailabl e Barbara Monroy MD Primary Care Provider Encounter Details Date Type Department Care Team (Latest Contact Info) Description 11/02/2019 Transcribe Orders [facility] [address] [place] [address] Farnaz Aranda PA [address] [place] [address] [email or web address] Elevated glucose (Primary Dx); Hypertension, unspecified type Social History Tobacco Use Types Packs/Day Years [...] as of this encounter Results * (ABNORMAL) Hemoglobin A1c (11/02/2019 8:42 AM EST) HEMOGLOBIN A1C 6.4(H) 4.3 - 5.8 % [facility] Blood 11/02/2019 8:42 AM EST 11/02/2019 9:16 AM EST Farnaz [facility] LAB BLOOD ORDERABLES Final Resu lt Performing Organization Address City/[facility]/ZIP Co de Phone Number [address] [address] * (ABNORMAL) Basic metabolic panel (11/02/2019 8:42 AM EST) SODIUM 141 133 - 146 mmol/L [facility] CHLORIDE 99 96 - 108 mmol/L [facility] POTASSIUM 4.3 3.3 - 5.1 mmol/L [facility] CO2 27 21 - 35 mmol/L [facility] BUN 17 6 - 19 mg/dL [facility] CREATININE 0.80 0.5 - 1.5 mg/dL [facility] GLUCOSE 136(H) 70 - 99 mg/dL [facility] CALCIUM 10.3 8.4 - 10.3 mg/dL [facility] EGFR 78 >59 mL/min/1.7 3m2 [facility] Comment:If patient is black, multiply result by 1.159. Estimated glomerular filtration rate calculated using the CKD-EPI equation. ANION GAP 19 10 - 20 mmol/L [facility] Blood 11/02/2019 8:42 AM EST 11/02/2019 9:16 AM EST [facility] BLOOD ORDERABLES Final Resu lt [address] [address] documented in this encounter Visit Diagnoses Diagnosis Elevated glucose- Primary Other abnormal glucose Hypertension, unspecified type documented in this encounter Additional Health Concerns Infection Onset Date Last Indicated Resolved Time Clearance-CoV Comment:Auto-resolved with negative COVID-19 PCR 02/13/2020 02/13/2020 02/13/2020 4:00 PM E DT CoV-Risk Comment:COVID-19 test pending Adm from home 02/13/2020 02/13/2020 02/14/2020 12:27 PM EDT documented as of this encounter Care Teams Dining Manager Relationship Specialty Start Date End Date Farnaz Aranda PA [address] [place] [phone] [email or web address] PCP - General Unknown Provider Specialty 07/23/19 01/21/22 Barbara Monroy MD [address] [place] [address] [email or web address] PCP - General Internal Medicine 01/22/22 Linda Holloway MD 15 [facility], [facility] [place] [address] Historical LMR Provider 07/25/17 10/17/21 Kenisha Flores MD [address] [place] [address] [email or web address] Historical LMR Provider 07/25/17 10/17/21 Salena Cardenas MD [address] [address] [email or web address] Historical LMR Provider 07/25/17 10/17/21 Shay Dao MD [address] [place] [address] Historical LMR Provider 07/25/17 10/17/21 Casey Lofton MD Gastroenterology 02/14/20 documented as of this encounter Additional Source Comments The information contained in this document represents components of the legal health record. It is not the complete legal health record.[facility]
--- OUTSIDE RECORDS SUMMARY | 2025-06-28 09:22 | XMS_ITS | Encounter Summary ---
Author Organization [facility] Address [address] [place] [address] Phone Care Team Providers Care Zookeeper Name Role Phone Farnaz Aranda Primary Care Provider [phone] Casey Lofton MD [facility] Barbara Monroy MD Primary Care Provider [phone] Encounter Details Date Type Department Care Team (Late st Contact Info) Description 01/15/2022 Procedure Pass [facility], [address] [address] Social History Tobacco Use Types Packs/Day Years [...] on filedocumented in this encounter Care Teams Zookeeper Relationship Specialty Start Date End Date Farnaz [place] [address] [email or web address] [email or web address] PCP - General Unknown Provider Specialty 07/23/19 01/21/22 Barbara Monroy MD [address] [place] [address] [email or web address] PCP - General Internal Medicine 01/22/22 Casey Lofton MD Gastroenterology 02/14/20 documented as of this encounter Additional Source Comments The information contained in this document represents components of the legal health record. It is not the complete legal health record.[facility]
--- OUTSIDE RECORDS SUMMARY | 2025-06-28 09:22 | XMS_ITS | Encounter Summary ---
Author Organization [facility] Address [address] [place] [address] Phone Care Team Providers Care Channeler Outsole Name Role Phone Linda Holloway MD Unavailable [phone] Kenisha Flores MD Unavailable + Salena Cardenas MD Unavailable [phone] Shay Dao MD Unavailable [phone] Farnaz Aranda Primary Care Provider [phone] Casey Lofton MD Unavailable Unavailabl e Barbara Monroy MD Primary Care Provider [phone] Encounter Details Date Type Department Care Team (Late st Contact Info) Description 06/29/2021 Procedure Pass [facility], Ct Scan - [address] [address] Social History Tobacco Use Types Packs/Day Years [...] on filedocumented in this encounter Care Teams Channeler Outsole Relationship Specialty Start Date End Date Farnaz Aranda PA [address] [place] [address] [email or web address] PCP - General Unknown Provider Specialty 07/23/19 01/21/22 Barbara Monroy MD 15 [place] [address] PCP - General Internal Medicine 01/22/22 Linda Holloway MD 15 [facility], 2nd [place] [address] Historical LMR Provider 07/25/17 10/17/21 Kenisha Flores MD [address] [place] [address] [email or web address] Historical LMR Provider 07/25/17 10/17/21 Salena Cardenas MD [address] [address] [email or web address] Historical LMR Provider 07/25/17 10/17/21 Shay Dao MD [address] [place] [address] Historical LMR Provider 07/25/17 10/17/21 Casey Lofton MD Gastroenterology 02/14/20 documented as of this encounter Additional Source Comments The information contained in this document represents components of the legal health record. It is not the complete legal health record.[facility]
--- OUTSIDE RECORDS SUMMARY | 2025-06-28 09:22 | XMS_ITS | Encounter Summary ---
Author Organization [facility] Address [address] [place] [address] Phone Care Team Providers Care Durable Medical Equipment Technician Name Role Phone Linda Holloway MD Unavailable [phone] Kenisha Flores MD Unavailable + Salena Cardenas MD Unavailable [phone] Shay Dao MD Unavailable [phone] Farnaz Aranda Primary Care Provider [phone] Casey Lofton MD Unavailable Unavailabl e Barbara Monroy MD Primary Care Provider [phone] Encounter Details Date Type Department Care Team (Latest Contact Info) Description 10/15/2019 Transcribe Orders [facility] [address] [place] [address] Farnaz Aranda PA [address] [place] [address] [email or web address] Hypertension, unspecified type (Primary Dx); Low vitamin D level Social History Tobacco Use Types Packs/Day Years [...] encounter Results * (ABNORMAL) 25-OH vitamin D (10/15/2019 10:41 AM EST) 25 OH VIT D (TOTAL) 24(L) 30 - 60 ng/mL [facility] Blood 10/15/2019 10:4 1 AM EST 10/15/2019 10:48 AM EST Farnaz [facility] BLOOD ORDERABLES Final Resu lt Performing Organization Address City/[facility]/ZIP Co de Phone Number [address] [address] * (ABNORMAL) Basic metabolic panel (10/15/2019 10:41 AM EST) SODIUM 139 133 - 146 mmol/L [facility] CHLORIDE 100 96 - 108 mmol/L [facility] POTASSIUM 3.8 3.3 - 5.1 mmol/L [facility] CO2 25 21 - 35 mmol/L [facility] BUN 12 6 - 19 mg/dL [facility] CREATININE 0.70 0.5 - 1.5 mg/dL [facility] GLUCOSE 202(H) 70 - 99 mg/dL [facility] CALCIUM 9.4 8.4 - 10.3 mg/dL [facility] EGFR 92 >59 mL/min/1.7 3m2 [facility] Comment:If patient is black, multiply result by 1.159. Estimated glomerular filtration rate calculated using the CKD-EPI equation. ANION GAP 18 10 - 20 mmol/L [facility] Blood 10/15/2019 10:4 1 AM EST 10/15/2019 10:48 AM EST Farnaz [facility] BLOOD ORDERABLES Final Resu lt Performing Organization Address City/[facility]/ZIP Co de Phone Number [address] [address] documented in this encounter Visit Diagnoses Diagnosis Hypertension, unspecified type- Primary Low vitamin D level documented in this encounter Additional Health Concerns Infection Onset Date Last Indicated Resolved Time Clearance-CoV Comment:Auto-resolved with negative COVID-19 PCR 02/13/2020 02/13/2020 02/13/2020 4:00 PM E DT CoV-Risk Comment:COVID-19 test pending Adm from home 02/13/2020 02/13/2020 02/14/2020 12:27 PM EDT documented as of this encounter Care Teams Durable Medical Equipment Technician Relationship Specialty Start Date End Date Farnaz Aranda PA [address] [place] [address] [email or web address] PCP - General Unknown Provider Specialty 07/23/19 01/21/22 Barbara Monroy MD [address] [place] [address] PCP - General Internal Medicine 01/22/22 Linda Holloway MD 15 [facility], 2nd [place] [address] Historical LMR Provider 07/25/17 10/17/21 Kenisha Flores MD [address] [place] [phone] [email or web address] Historical LMR Provider 07/25/17 10/17/21 Salena Cardenas MD [address] [address] [email or web address] Historical LMR Provider 07/25/17 10/17/21 Shay Dao MD [address] [place] [address] Historical LMR Provider 07/25/17 10/17/21 Casey Lofton MD Gastroenterology 02/14/20 documented as of this encounter Additional Source Comments The information contained in this document represents components of the legal health record. It is not the complete legal health record.[facility]
== END 2025-06-28 10:09 | disposition home or self-care (01) ==
LOC: HO.HUSH 08:45
PROVIDERS: PCP Nurse Practitioner Family; Visit Provider Urology
DX: Z13.9 Encounter for screening, unspecified (principal)
CPT/HCPCS: 99204

== ENCOUNTER → 2025-06-28 08:44 | Outpatient (BNVA) | payer MEDICARE, OTHER, SELFPAY | PROVIDERS: PCP Nurse Practitioner Family; Visit Provider Urology | DX: R39.15 Urgency of urination (principal); N39.3 Stress incontinence (female) (male); Z13.9 Encounter for screening, unspecified | CPT/HCPCS: 51798; 81003; 99202 ==

== ENCOUNTER 2025-08-13 09:06 | Outpatient (REF) | payer MEDICARE, OTHER, SELFPAY ==
--- OUTSIDE RECORDS SUMMARY | 2025-08-13 11:47 | XMS_ITS | Encounter Summary ---
Author Organization [facility] Address [address] [place] [id number] Phone Care Team Providers Care Welfare Interviewer Name Role Phone Casey Lofton MD Unavailable [facility] e Barbara Monroy MD Primary Care Provider [phone] Encounter Details Date Type Department Care Team (Late st Contact Info) Description 01/13/2023 Procedure Pass [facility], Ct Scan - [address] [id number] Social History Tobacco Use Types Packs/Day Years [...] on filedocumented in this encounter Care Teams Welfare Interviewer Relationship Specialty Start Date End Date Barbara Monroy MD [address] [place] [address] [phone] [email or web address] PCP - General Internal Medicine 01/22/22 Casey Lofton MD Gastroenterology 02/14/20 documented as of this encounter Additional Source Comments The information contained in this document represents components of the legal health record. It is not the complete legal health record.[facility]
--- OUTSIDE RECORDS SUMMARY | 2025-08-13 11:48 | XMS_ITS | Encounter Summary ---
Author Organization [facility] Address [address] [place] [address] Phone Care Team Providers Care Sole Rounding Machine Operator Name Role Phone Linda Holloway MD Unavailable [phone] Kenisha Flores MD Unavailable + Salena Cardenas MD Unavailable [phone] Shay Dao MD Unavailable [phone] Farnaz Aranda Primary Care Provider [phone] Casey Lofton MD Unavailable Unavailabl e Barbara Monroy MD Primary Care Provider [phone] Encounter Details Date Type Department Care Team (Late st Contact Info) Description 07/15/2020 Procedure Pass [facility], Ct Scan - [address] [address] Social History Tobacco Use Types Packs/Day Years [...] on filedocumented in this encounter Care Teams Sole Rounding Machine Operator Relationship Specialty Start Date End Date Farnaz Aranda PA [address] [place] [address] [email or web address] PCP - General Unknown Provider Specialty 07/23/19 01/21/22 Barbara Monroy MD [address] [place] [address] PCP - General Internal Medicine 01/22/22 Linad Holloway MD [address] [facility] [address] [place] [address] Historical LMR Provider 07/25/17 10/17/21 Kenisha Flores MD [address] [place] [phone] [email or web address] Historical LMR Provider 07/25/17 10/17/21 Salena Cardenas MD [address] [address] [email or web address] Historical LMR Provider 07/25/17 10/17/21 Shay Dao MD [address] [place] [id number] Historical LMR Provider 07/25/17 10/17/21 Casey Lofton MD Gastroenterology 02/14/20 documented as of this encounter Additional Source Comments The information contained in this document represents components of the legal health record. It is not the complete legal health record.[facility]
--- OUTSIDE RECORDS SUMMARY | 2025-08-13 11:48 | XMS_ITS | Encounter Summary ---
Author Organization [facility] Address [address] [place] [address] Phone Care Team Providers Care Mattress Stuffer Name Role Phone Linda Holloway MD Unavailable [phone] Kenisha Flores MD Unavailable + Salena Cardenas MD Unavailable [phone] Shay Dao MD Unavailable [phone] Farnaz Aranda Primary Care Provider [phone] Casey Lofton MD Unavailable Unavailabl e Barbara Monroy MD Primary Care Provider Encounter Details Date Type Department Care Team (Late st Contact Info) Description 04/10/2020 Procedure Pass [facility] Endoscopy Admitting Dept Virtual Department [address] [place] [phone] Social History Tobacco Use Types Packs/Day Years [...] on filedocumented in this encounter Care Teams Mattress Stuffer Relationship Specialty Start Date End Date Farnaz Aranda PA [address] [place] [address] [email or web address] PCP - General Unknown Provider Specialty 07/23/19 01/21/22 Barbara Monroy MD [address] [place] [address] PCP - General Internal Medicine 01/22/22 Linda Holloway MD [address] [address] [email or web address] Historical LMR Provider 07/25/17 10/17/21 Kenisha Flores MD [address] [place] [address] [email or web address] Historical LMR Provider 07/25/17 10/17/21 Salena Cardenas MD [address] [address] [email or web address] Historical LMR Provider 07/25/17 10/17/21 Shay Dao MD [address] [place] [address] Historical LMR Provider 07/25/17 10/17/21 Casey Lofton MD Gastroenterology 02/14/20 documented as of this encounter Additional Source Comments The information contained in this document represents components of the legal health record. It is not the complete legal health record.[facility]
--- OUTSIDE RECORDS SUMMARY | 2025-08-13 11:48 | XMS_ITS | Encounter Summary ---
Author Organization [facility] Address [address] [place] [address] Phone Care Team Providers Care Single Stayer Operator Name Role Phone Linda Holloway MD Unavailable [phone] Kenisha Flores MD Unavailable + Salena Cardenas MD Unavailable +[phone] Shay Dao MD Unavailable +[phone] Farnaz Aranda Primary Care Provider +[phone] Casey Lofton MD Unavailable Unavailabl e Barbara Monroy MD Primary Care Provider [phone] Encounter Details Date Type Department Care Team (Late st Contact Info) Description 07/07/2020 Transcribe Orders [facility] PFT Lab 30 [place] [address] Farnaz Aranda PA 15 [place] [address] [email or web address] Social History Tobacco Use Types Packs/Day Years [...] on filedocumented in this encounter Care Teams Single Stayer Operator Relationship Specialty Start Date End Date Farnaz Aranda PA [address] [place] [address] [email or web address] PCP - General Unknown Provider Specialty 07/23/19 01/21/22 Barbara Monroy MD [address] [place] [address] PCP - General Internal Medicine 01/22/22 Linda Holloway MD 15 [facility], [address] [place] [address] Historical LMR Provider 07/25/17 10/17/21 Kenisha Flores MD [address] [place] [address] [email or web address] Historical LMR Provider 07/25/17 10/17/21 Salena Cardenas MD [address] [address] [email or web address] Historical LMR Provider 07/25/17 10/17/21 Shay Dao MD [address] [place] [address] Historical LMR Provider 07/25/17 10/17/21 Casey Lofton MD Gastroenterology 02/14/20 documented as of this encounter Additional Source Comments The information contained in this document represents components of the legal health record. It is not the complete legal health record.[facility]
--- OUTSIDE RECORDS SUMMARY | 2025-08-13 11:48 | XMS_ITS | Encounter Summary ---
Author Organization [facility] Address [address] [place] [address] Phone Care Team Providers Care Accounting Policy Consultant Name Role Phone Linda Holloway MD Unavailable [phone] Kenisha Flores MD Unavailable + Salena Cardenas MD Unavailable [phone] Shay Dao MD Unavailable +[phone] Farnaz Aranda Primary Care Provider +[phone] Casey Lofton MD Unavailable Unavailabl e Barbara Monryo MD Primary Care Provider [phone] Encounter Details Date Type Department Care Team (Late st Contact Info) Description 07/30/2020 Procedure Pass [facility] Echo Lab 30 [place] [address] Social History Tobacco Use Types Packs/Day Years [...] on filedocumented in this encounter Care Teams Accounting Policy Consultant Relationship Specialty Start Date End Date Farnaz Aranda PA 15 [place] [address] [email or web address] PCP - General Unknown Provider Specialty 07/23/19 01/21/22 Barbara Monroy MD 15 [place] [address] PCP - General Internal Medicine 01/22/22 Linda Holloway MD 15 [facility] [place] [address] Historical LMR Provider 07/25/17 10/17/21 Kenisha Flores MD [address] [place] [address] [email or web address] Historical LMR Provider 07/25/17 10/17/21 Salena Cardenas MD [address] [address] [email or web address] Historical LMR Provider 07/25/17 10/17/21 Shay Dao MD [address] [place] [address] Historical LMR Provider 07/25/17 10/17/21 Casey Lofton MD Gastroenterology 02/14/20 documented as of this encounter Additional Source Comments The information contained in this document represents components of the legal health record. It is not the complete legal health record.[facility]
--- OUTSIDE RECORDS SUMMARY | 2025-08-13 11:48 | XMS_ITS | Encounter Summary ---
Author Organization [facility] Address [address] [place] [address] Phone Care Team Providers Care Automatic Outsole Cutter Name Role Phone Casey Lofton MD [facility] Barbara Dumont MD Primary Care Provider [phone] Reason for Referral * MRI/CAT Scan - Closed Specialty Diagnoses / Procedures Referred By Clarice thompson Referred To Contact Radiology Diagnoses Pulmonary nodule Procedures CT Chest CHG DIAGNOSTIC COMPUTED TOMOGRAPHY THORAX W/CONTRAST CHG DIAGNOSTIC COMPUTED TOMOGRAPHY THORAX W/O CNTRST Farnaz Aranda PA Phone: tel: fax: mailto:[email or web address] Referral ID Status Reason Start Date Expiration Date Visits Re quested Visits Authorized [id number] Closed 01/19/2023 07/18/2023 1 1 Encounter Details Date Type Department Care Team (Latest Contact Info) Description 01/13/2023 Transcribe Orders Virtual Department 30 [place] [address] Farnaz Aranda PA 15 [place] [address] [email or web address] Pulmonary nodule (Primary Dx) Social History Tobacco [...] classified documented in this encounter Care Teams Automatic Outsole Cutter Relationship Specialty Start Date End Date Barbara Monroy MD [address] [place] [address] [email or web address] PCP - General Internal Medicine 01/22/22 Casey Lofton MD Gastroenterology 02/14/20 documented as of this encounter Additional Source Comments The information contained in this document represents components of the legal health record. It is not the complete legal health record.[facility]
--- OUTSIDE RECORDS SUMMARY | 2025-08-13 11:48 | XMS_ITS | Encounter Summary ---
Author Organization [facility] Address [address] [place] [address] Phone Care Team Providers Care Electronics Recycler Name Role Phone Linda Holloway MD Unavailable [phone] Kenisha Flores MD Unavailable + Salena Cardenas MD Unavailable +[phone] Shay Dao MD Unavailable +[phone] Farnaz Aranda Primary Care Provider +[phone] Casey Lofton MD Unavailable Unavailabl e Barbara Monroy MD Primary Care Provider [phone] Encounter Details Date Type Department Care Team (Latest Contact Info) Description 07/15/2020 Transcribe Orders [facility] Specimen Processing 30 [place] [address] Farnaz Aranda PA 15 [place] [address] [email or web address] Elevated glucose (Primary Dx) Social History Tobacco [...] glucose documented in this encounter Care Teams Electronics Recycler Relationship Specialty Start Date End Date Farnaz Aranda PA [address] [place] [address] [email or web address] PCP - General Unknown Provider Specialty 07/23/19 01/21/22 Barbara Monroy MD 15 [place] [address] [email or web address] PCP - General Internal Medicine 01/22/22 Linda Holloway MD 15 [facility], [address] [place] [address] Historical LMR Provider 07/25/17 10/17/21 Kenisha Flores MD [address] [place] [address] [email or web address] Historical LMR Provider 07/25/17 10/17/21 Salena Cardenas MD [address] [address] [email or web address] Historical LMR Provider 07/25/17 10/17/21 Shay Dao MD 41 [place] [address] Historical LMR Provider 07/25/17 10/17/21 Casey Lofton MD Gastroenterology 02/14/20 documented as of this encounter Additional Source Comments The information contained in this document represents components of the legal health record. It is not the complete legal health record.[facility]
--- OUTSIDE RECORDS SUMMARY | 2025-08-13 11:48 | XMS_ITS | Encounter Summary ---
Author Organization [facility] Address [address] [place] [address] Phone Care Team Providers Care Nursing Educator Name Role Phone Linda Holloway MD Unavailable [phone] Kenisha Flores MD Unavailable + Salena Cardenas MD Unavailable +[phone] Shay Dao MD Unavailable +[phone] Farnaz Aranda Primary Care Provider +[phone] Casey Lofton MD Unavailable Unavailabl e Barbara Monroy MD Primary Care Provider Encounter Details Date Type Department Care Team (Late st Contact Info) Description 08/06/2020 Procedure Pass [facility], [address] [address] Social History Tobacco Use Types Packs/Day Years [...] on filedocumented in this encounter Care Teams Nursing Educator Relationship Specialty Start Date End Date Farnaz Aranda PA 15 [place] [address] [email or web address] PCP - General Unknown Provider Specialty 07/23/19 01/21/22 Barbara Monroy MD 15 [place] [address] PCP - General Internal Medicine 01/22/22 Linda Holloway MD [address] [address] Historical LMR Provider 07/25/17 10/17/21 Kenisha Flores MD [address] [place] [address] [email or web address] Historical LMR Provider 07/25/17 10/17/21 Salena Cardenas MD [address] [address] [email or web address] Historical LMR Provider 07/25/17 10/17/21 Shay Dao MD [address] [place] [address] Historical LMR Provider 07/25/17 10/17/21 Casey Lofton MD Gastroenterology 02/14/20 documented as of this encounter Additional Source Comments The information contained in this document represents components of the legal health record. It is not the complete legal health record.[facility]
--- OUTSIDE RECORDS SUMMARY | 2025-08-13 11:48 | XMS_ITS | Encounter Summary ---
Author Organization [facility] Address [address] [place] [address] Phone Care Team Providers Care Pharmacist Name Role Phone Linda Holloway MD Unavailable [phone] Kenisha Flores MD Unavailable + Salena Cardenas MD Unavailable +[phone] Shay Dao MD Unavailable +[phone] Farnaz Aranda Primary Care Provider +[phone] Casey Lofton MD Unavailable Unavailabl e Barbara Monroy MD Primary Care Provider Encounter Details Date Type Department Care Team (Late st Contact Info) Description 08/06/2020 Ancillary Orders Virtual Department 30 [place] [address] Farnaz Aranda PA [address] [place] [address] [email or web address] Breast nodule Social History Tobacco Use Types [...] breast documented in this encounter Care Teams Pharmacist Relationship Specialty Start Date End Date Farnaz Aranda PA 15 [place] [address] [email or web address] PCP - General Unknown Provider Specialty 07/23/19 01/21/22 Barbara Monroy MD 15 [place] [address] [email or web address] PCP - General Internal Medicine 01/22/22 Linda Holloway MD 15 [facility], [address] [place] [address] [email or web address] Historical LMR Provider 07/25/17 10/17/21 Kenisha Flores MD [address] [place] [address] [email or web address] Historical LMR Provider 07/25/17 10/17/21 Salena Cardenas MD [address] [address] [email or web address] Historical LMR Provider 07/25/17 10/17/21 Shay Dao MD 41 [place] [address] Historical LMR Provider 07/25/17 10/17/21 Casey Lofton MD Gastroenterology 02/14/20 documented as of this encounter Additional Source Comments The information contained in this document represents components of the legal health record. It is not the complete legal health record.[facility]
--- OUTSIDE RECORDS SUMMARY | 2025-08-13 11:48 | XMS_ITS | Encounter Summary ---
Author Organization [facility] Address [address] [place] [address] Phone Care Team Providers Care Tobacco Curer Name Role Phone Casey Lofton MD, Christine D MD Primary Care Provider [phone] Encounter Details Date Type Department Care Team (Late st Contact Info) Description 03/10/2023 Procedure Pass [facility] Endoscopy Admitting Dept Virtual Department 30 [place] [address] Social History Tobacco Use Types Packs/Day Years [...] on filedocumented in this encounter Care Teams Tobacco Curer Relationship Specialty Start Date End Date Barbara Monroy MD [address] [place] [address] [email or web address] PCP - General Internal Medicine 01/22/22 Casey Lofton MD Gastroenterology 02/14/20 documented as of this encounter Additional Source Comments The information contained in this document represents components of the legal health record. It is not the complete legal health record.[facility]
--- OUTSIDE RECORDS SUMMARY | 2025-08-13 11:48 | XMS_ITS | Encounter Summary ---
Author Organization [facility] Address [address] [place] [address] Phone Care Team Providers Care Frame Tender Name Role Phone Linda Holloway MD Unavailable [phone] Kenisha Flores MD Unavailable + Salena Cardenas MD Unavailable +[phone] Shay Dao MD Unavailable +[phone] Farnaz Aranda Primary Care Provider +[phone] Casey Lofton MD Unavailable Unavailabl e Barbara Monroy MD Primary Care Provider Encounter Details Date Type Department Care Team (Late st Contact Info) Description 07/18/2020 Ancillary Orders Virtual Department 30 [place] [address] Farnaz Aranda PA [address] [place] [address] [email or web address] Breast screening Social History Tobacco Use [...] unspecified documented in this encounter Care Teams Frame Tender Relationship Specialty Start Date End Date Farnaz Aranda PA 15 [place] [address] [email or web address] PCP - General Unknown Provider Specialty 07/23/19 01/21/22 Barbara Monroy MD [address] [place] [address] PCP - General Internal Medicine 01/22/22 Linda Holloway MD [address] [address] Historical LMR Provider 07/25/17 10/17/21 Kenisha Flores MD [address] [place] [address] [email or web address] Historical LMR Provider 07/25/17 10/17/21 Salena Cardenas MD [address] [address] Historical LMR Provider 07/25/17 10/17/21 Shay Dao MD [address] [place] [address] Historical LMR Provider 07/25/17 10/17/21 Casey Lofton MD Gastroenterology 02/14/20 documented as of this encounter Additional Source Comments The information contained in this document represents components of the legal health record. It is not the complete legal health record.[facility]
--- OUTSIDE RECORDS SUMMARY | 2025-08-13 11:48 | XMS_ITS | Encounter Summary ---
Author Organization [facility] Address [address] [place] [address] Phone Care Team Providers Care Director Process Name Role Phone Casey Lofton MD Unavailable UnavailBarbara Espinosa MD Primary Care Provider [phone] Encounter Details Date Type Department Care Team (Late st Contact Info) Description 02/01/2023 Ancillary Orders [facility], [address] [address] Barbara Monroy MD [address] [place] [address] [email or web address] Abnormal finding on mammography Social History Tobacco [...] mammography documented in this encounter Care Teams Director Process Relationship Specialty Start Date End Date Barbara Monroy MD [address] [place] [address] [email or web address] PCP - General Internal Medicine 01/22/22 Casey Lofton MD Gastroenterology 02/14/20 documented as of this encounter Additional Source Comments The information contained in this document represents components of the legal health record. It is not the complete legal health record.[facility]
--- OUTSIDE RECORDS SUMMARY | 2025-08-13 11:48 | XMS_ITS | Encounter Summary ---
Author Organization [facility] Address [address] [place] [address] Phone Care Team Providers Care Pulpwood Cutter Name Role Phone Linda Holloway MD Unavailable [phone] Kenisha Flores MD Unavailable + Salena Cardenas MD Unavailable +[phone] Shay Dao MD Unavailable +[phone] Farnaz Aranda Primary Care Provider +[phone] Casey Lofton MD Unavailable [facility] e Barbara Monroy MD Primary Care Provider [phone] Reason for Referral * MRI/CAT Scan - Closed Specialty Diagnoses / Procedures Referred By Contlina t Referred To Contact Radiology Diagnoses Chronic sinusitis, unspecified location Cervical lymphadenopathy Procedures CT Neck Farnaz Aranda PA Phone: tel: fax: mailto:[email or web address] Referral ID Status Reason Start Date Expiration Date Visits Re quested Visits Authorized [id number] Closed 09/24/2020 09/24/2021 1 1 * MRI/CAT Scan - Closed Specialty Diagnoses / Procedures Referred By Contac t Referred To Contact Radiology Diagnoses Chronic sinusitis, unspecified location Cervical lymphadenopathy Procedures CT Face Farnaz Aranda PA Phone: tel: fax: mailto:[email or web address] Referral ID Status Reason Start Date Expiration Date Visits Re quested Visits Authorized [id number] Closed 09/24/2020 09/24/2021 1 1 Encounter Details Date Type Department Care Team (Latest Contact Info) Description 09/24/2020 Transcribe Orders Virtual Department 30 [place] [address] Farnaz Aranda PA [address] [place] [address] [email or web address] Chronic sinusitis, unspecified location (Primary Dx); Cervical [...] nodes documented in this encounter Care Teams Pulpwood Cutter Relationship Specialty Start Date End Date Farnaz Aranda PA [address] [place] [address] [email or web address] PCP - General Unknown Provider Specialty 07/23/19 01/21/22 Barbara Monroy MD [address] [place] [address] [email or web address] PCP - General Internal Medicine 01/22/22 Linda Holloway MD 15 [facility], [address] [place] [address] [email or web address] Historical LMR Provider 07/25/17 10/17/21 Kenisha Flores MD 238 [place] [address] [email or web address] Historical LMR Provider 07/25/17 10/17/21 Salena Cardenas MD [address] [address] [email or web address] Historical LMR Provider 07/25/17 10/17/21 Shay Dao MD [address] [place] [address] Historical LMR Provider 07/25/17 10/17/21 Casey Lofton MD Gastroenterology 02/14/20 documented as of this encounter Additional Source Comments The information contained in this document represents components of the legal health record. It is not the complete legal health record.[facility]
--- OUTSIDE RECORDS SUMMARY | 2025-08-13 11:48 | XMS_ITS | Encounter Summary ---
Author Organization [facility] Address [address] [place] [address] Phone Care Team Providers Care Liner Checker Name Role Phone Casey Lofton MD Unavailable [facility] e Barbara Monroy MD Primary Care Provider [phone] Encounter Details Date Type Department Care Team (Late st Contact Info) Description 01/14/2023 Procedure Pass [facility], [address] [address] Social History Tobacco Use Types Packs/Day Years [...] on filedocumented in this encounter Care Teams Liner Checker Relationship Specialty Start Date End Date Barbara Monroy MD [address] [place] [address] [email or web address] PCP - General Internal Medicine 01/22/22 Casey Lofton MD Gastroenterology 02/14/20 documented as of this encounter Additional Source Comments The information contained in this document represents components of the legal health record. It is not the complete legal health record.[facility]
--- OUTSIDE RECORDS SUMMARY | 2025-08-13 11:48 | XMS_ITS | Encounter Summary ---
Author Organization [facility] Address [address] [place] [address] Phone Care Team Providers Care Double Backer Name Role Phone Linda Holloway MD Unavailable [phone] Kenisha Flores MD Unavailable + Salena Cardenas MD Unavailable +[phone] Shay Dao MD Unavailable +[phone] Farnaz Aranda Primary Care Provider +[phone] Casey Lofton MD Unavailable Unavailabl e Barbara Monroy MD Primary Care Provider Reason for Referral * MRI/CAT Scan - Closed Specialty Diagnoses / Procedures Referred By Clarice t Referred To Contact Radiology Diagnoses Chronic cough Procedures CT Chest Farnaz Aranda PA Phone: tel: fax: mailto:[email or web address] Referral ID Status Reason Start Date Expiration Date Visits Re quested Visits Authorized [id number] Closed 07/15/2020 01/13/2021 1 1 Encounter Details Date Type Department Care Team (Late st Contact Info) Description 07/15/2020 Ancillary Orders [facility] Department [address] [place] [address] Farnaz Aranda PA [address] [place] [address] [phone] [email or web address] Chronic cough Social History Tobacco Use Types [...] Cough documented in this encounter Care Teams Double Backer Relationship Specialty Start Date End Date Farnaz Aranda PA [address] [place] [address] PCP - General Unknown Provider Specialty 07/23/19 01/21/22 Barbara Monroy MD [address] [place] [address] PCP - General Internal Medicine 01/22/22 Linda Holloway MD 15 [facility], 2nd [place] [address] [email or web address] Historical LMR Provider 07/25/17 10/17/21 Kenisha Flores MD 238 [place] [address] [email or web address] Historical LMR Provider 07/25/17 10/17/21 Salena Cardenas MD [address] [address] [email or web address] Historical LMR Provider 07/25/17 10/17/21 Shay Dao MD [address] [place] [address] Historical LMR Provider 07/25/17 10/17/21 Casey Lofton MD Gastroenterology 02/14/20 documented as of this encounter Additional Source Comments The information contained in this document represents components of the legal health record. It is not the complete legal health record.[facility]
--- OUTSIDE RECORDS SUMMARY | 2025-08-13 11:48 | XMS_ITS | Encounter Summary ---
Author Organization [facility] Address [address] [place] [address] Phone Care Team Providers Care Channel Man Name Role Phone Linda Holloway MD Unavailable [phone] Kenisha Flores MD Unavailable + Salena Cardenas MD Unavailable +[phone] Shay Dao MD Unavailable +[phone] Farnaz Aranda Primary Care Provider +[phone] Casey Lofton MD Unavailable Unavailabl e Barbara Monroy MD Primary Care Provider Reason for Referral * Outpatient Procedure - Closed Specialty Diagnoses / Procedures Referred By Contac t Referred To Contact Diagnoses SOB (shortness of breath) Procedures Adult Echo TTE Farnaz Aranda PA Phone: tel: fax: mailto:[email or web address] Referral ID Status Reason Start Date Expiration Date Visits Re quested Visits Authorized [id number] Closed 07/25/2020 07/25/2021 1 1 Encounter Details Date Type Department Care Team (Latest Contact Info) Description 07/25/2020 Transcribe Orders [facility] Department 30 [place] [address] Farnaz Aranda PA 15 [place] [address] [email or web address] [email or web address] (shortness of breath) (Primary Dx) Social [...] breath documented in this encounter Care Teams Channel Man Relationship Specialty Start Date End Date Farnaz Aranda PA 15 [place] [address] [email or web address] PCP - General Unknown Provider Specialty 07/23/19 01/21/22 Barbara Monroy MD [address] [place] [address] [email or web address] PCP - General Internal Medicine 01/22/22 Linda Holloway MD [address] [address] Historical LMR Provider 07/25/17 10/17/21 Kenisha Flores MD [address] [place] [address] [email or web address] Historical LMR Provider 07/25/17 10/17/21 Salena Cardenas MD [address] [address] [email or web address] Historical LMR Provider 07/25/17 10/17/21 Shay Dao MD 41 [place] [address] Historical LMR Provider 07/25/17 10/17/21 Casey Lofton MD Gastroenterology 02/14/20 documented as of this encounter Additional Source Comments The information contained in this document represents components of the legal health record. It is not the complete legal health record.[facility]
--- OUTSIDE RECORDS SUMMARY | 2025-08-13 11:48 | XMS_ITS | Encounter Summary ---
Author Organization [facility] Address [address] [place] [address] Phone Care Team Providers Care Estate Attorney Name Role Phone Linda Holloway MD Unavailable [phone] Kenisha Flores MD Unavailable + Salena Cardenas MD Unavailable [phone] Shay Dao MD Unavailable [phone] Farnaz Aranda Primary Care Provider +[phone] Casey Lofton MD Unavailable Unavailabl e Barbara Monroy MD Primary Care Provider [phone] Encounter Details Date Type Department Care Team (Late st Contact Info) Description 08/06/2020 Procedure Pass [facility], [address] [address] Social History Tobacco Use Types Packs/Day Years [...] on filedocumented in this encounter Care Teams Estate Attorney Relationship Specialty Start Date End Date Farnaz Aranda PA [address] [place] [address] [email or web address] PCP - General Unknown Provider Specialty 07/23/19 01/21/22 Barbara Monroy MD 15 [place] [address] PCP - General Internal Medicine 01/22/22 Linda Holloway MD [address] [address] Historical LMR Provider 07/25/17 10/17/21 Kenisha Flores MD [address] [place] [address] [email or web address] Historical LMR Provider 07/25/17 10/17/21 Salena Cardenas MD [address] [address] Historical LMR Provider 07/25/17 10/17/21 Shay Dao MD [address] [place] [address] Historical LMR Provider 07/25/17 10/17/21 Casey Lofton MD Gastroenterology 02/14/20 documented as of this encounter Additional Source Comments The information contained in this document represents components of the legal health record. It is not the complete legal health record.[facility]
--- OUTSIDE RECORDS SUMMARY | 2025-08-13 11:48 | XMS_ITS | Encounter Summary ---
Author Organization [facility] Address [address] [place] [address] Phone Care Team Providers Care Security Services Specialist Name Role Phone Linda Holloway MD Unavailable [phone] Kenisha Flores MD Unavailable + Salena Cardenas MD Unavailable [phone] Shay Dao MD Unavailable [phone] Farnaz Aranda Primary Care Provider +[phone] Casey Lofton MD Unavailable Unavailabl e Barbara Monroy MD Primary Care Provider Encounter Details Date Type Department Care Team (Late st Contact Info) Description 09/24/2020 Procedure Pass [facility], Ct Scan - [address] [address] Social History Tobacco Use Types Packs/Day Years [...] on filedocumented in this encounter Care Teams Security Services Specialist Relationship Specialty Start Date End Date Farnaz Aranda PA 15 [place] [address] [email or web address] PCP - General Unknown Provider Specialty 07/23/19 01/21/22 Barbara Monroy MD 15 [place] [address] PCP - General Internal Medicine 01/22/22 Linda Holloway MD 15 [facility] [place] [address] Historical LMR Provider 07/25/17 10/17/21 Kenisha Flores MD [address] [place] [address] [email or web address] Historical LMR Provider 07/25/17 10/17/21 Salena Cardenas MD [address] [address] [email or web address] Historical LMR Provider 07/25/17 10/17/21 Shay Dao MD [address] [place] [address] Historical LMR Provider 07/25/17 10/17/21 Casey Lofton MD Gastroenterology 02/14/20 documented as of this encounter Additional Source Comments The information contained in this document represents components of the legal health record. It is not the complete legal health record.[facility]
--- OUTSIDE RECORDS SUMMARY | 2025-08-13 11:49 | XMS_ITS | Encounter Summary ---
Author Organization [facility] Address [address] [place] [address] Phone Care Team Providers Care Collection Systems Administrator Name Role Phone Linda Holloway MD Unavailable [phone] Kenisha Flores MD Unavailable + Salena Cardenas MD Unavailable [phone] Shay Dao MD Unavailable [phone] Kenisha Flores MD Primary Care Prov ider Farnaz Aranda Primary Care Provider [phone] Casey Lofton MD Unavailable Unavailabl e Barbara Monroy MD Primary Care Provider [phone] Encounter Details Date Type Department Care Team (Late st Contact Info) Description 07/10/2019 Ancillary Orders [facility],Outside Imaging [address] [place] [address] System, Provider Not In, [facility] [address] [address] Social History Tobacco Use Types Packs/Day Years [...] documented as of this encounter Care Teams Collection Systems Administrator Relationship Specialty Start Date End Date Kenisha Flores MD [address] [place] [address] PCP - General 10/13/17 07/22/19 Fanraz Aranda PA [address] [place] [address] [email or web address] PCP - General Unknown Provider Specialty 07/23/19 01/21/22 Barbara Monroy MD 15 [place] [address] PCP - General Internal Medicine 01/22/22 Linda Holloway MD 15 [facility], 2nd [place] [address] Historical LMR Provider 07/25/17 10/17/21 Kenisha Flores MD [address] [place] [address] [email or web address] Historical LMR Provider 07/25/17 10/17/21 Salena Cardenas MD [address] [address] [email or web address] Historical LMR Provider 07/25/17 10/17/21 Shay Dao MD [address] [place] [address] Historical LMR Provider 07/25/17 10/17/21 Casey Lofton MD Gastroenterology 02/14/20 documented as of this encounter Additional Source Comments The information contained in this document represents components of the legal health record. It is not the complete legal health record.[facility]
--- OUTSIDE RECORDS SUMMARY | 2025-08-13 11:49 | XMS_ITS | Encounter Summary ---
Author Organization [facility] Address [address] [place] [address] Phone Care Team Providers Care Dinkey Mechanic Name Role Phone Farnaz Aranda Primary Care Provider [phone] Casey Lofton MD [facility] Barbara Monroy MD Primary Care Provider [phone] Encounter Details Date Type Department Care Team (Late st Contact Info) Description 01/15/2022 Procedure Pass [facility], [address] [address] Social History Tobacco Use Types Packs/Day Years [...] on filedocumented in this encounter Care Teams Dinkey Mechanic Relationship Specialty Start Date End Date Farn[place] [address] [email or web address] PCP - General Unknown Provider Specialty 07/23/19 01/21/22 Barbara Monroy MD [address] [place] [address] [email or web address] PCP - General Internal Medicine 01/22/22 Casey Lofton MD Gastroenterology 02/14/20 documented as of this encounter Additional Source Comments The information contained in this document represents components of the legal health record. It is not the complete legal health record.[facility]
--- OUTSIDE RECORDS SUMMARY | 2025-08-13 11:49 | XMS_ITS | Encounter Summary ---
Author Organization [facility] Address [address] [place] [address] Phone Care Team Providers Care Inspector Wire Products Name Role Phone Linda Holloway MD Unavailable [phone] Kenisha Flores MD Unavailable + Salena Cardenas MD Unavailable [phone] Shay Dao MD Unavailable [phone] Farnaz Aranda Primary Care Provider [phone] Casey Lofton MD Unavailable Unavailabl e Barbara Monroy MD Primary Care Provider Reason for Referral * MRI/CAT Scan - Closed Specialty Diagnoses / Procedures Referred By Contlina t Referred To Contact Radiology Diagnoses Pulmonary nodule Procedures CT Chest Farnaz Aranda PA Phone: tel: fax: [email or web address] Referral ID Status Reason Start Date Expiration Date Visits Re quested Visits Authorized [id number] Closed 06/29/2021 06/29/2022 1 1 Encounter Details Date Type Department Care Team (Latest Contact Info) Description 06/29/2021 Transcribe Orders [facility] Department [address] [place] [address] Farnaz Aranda PA 15 [place] [address] [email or web address] Pulmonary nodule (Primary Dx) Social History Tobacco [...] classified documented in this encounter Care Teams Inspector Wire Products Relationship Specialty Start Date End Date Farnaz Aranda PA 15 [place] [address] [email or web address] PCP - General Unknown Provider Specialty 07/23/19 01/21/22 Barbara Monroy MD 15 [place] [address] [email or web address] PCP - General Internal Medicine 01/22/22 Linda Holloway MD [address] [place] [address], [address] [place] [address] [email or web address] Historical LMR Provider 07/25/17 10/17/21 Kenisha Flores MD [address] [place] [address] [email or web address] Historical LMR Provider 07/25/17 10/17/21 Salena Cardenas MD [address] [place] [address] [email or web address] Historical LMR Provider 07/25/17 10/17/21 Shay Dao MD [address] [place] [address] Historical LMR Provider 07/25/17 10/17/21 Casey Lofton MD Gastroenterology 02/14/20 documented as of this encounter Additional Source Comments The information contained in this document represents components of the legal health record. It is not the complete legal health record.[facility]
--- OUTSIDE RECORDS SUMMARY | 2025-08-13 11:49 | XMS_ITS | Clinical Summary ---
Author Organization [facility] Address [address] [place] [address] Phone Care Team Providers Care Field Service Tech Name Role Phone Casey Lofton MD, Christine D MD Primary Care Provider Allergies Active Allergy Reactions Criticality Noted Date [...] COLONOSCOPY 2000 RSV VACCINE (1 - Risk 50-74 years 1-dose series) 2005 PNEUMOCOCCAL VACCINES (50+ years) (2 of 2 [...] 2025 , 10/18/2016, 09/15/2015, Additional history exists LIPID PANEL 08/24/2028 08/24/2023, 08/10, 07/17/2021, Additional [...] Low vitamin D level BASIC METABOLIC PANEL (BMP) Routine 08/24/2023 8:52 AM EST Essential hypertension [...] (08/24/2023 8:52 AM EST) HDL 40 mg/dL [facility] Comment: Interpretation <40 mg/dL: Low HDL cholesterol (major risk factor for CHD) Greater than or equal to 60 mg/dL: High HDL cholesterol ( negative risk factor for CHD) HDL - cholesterol is affected by a number of factors, e.g. smoking, excerise, hormones, sex and age. CHOLESTEROL 184 0 - 240 mg/dL [facility] TRIGLYCERIDES 204(H) 30 - 160 mg/dL [facility] LDL 103 50 - 129 mg/dL [facility] Comment: LDL levels in terms of risk for coronary heart disease: <100 mg/dL: Optimal 100-129 mg/dL: Near or above optimal 130-159 mg/dL: Borderline high 160-189 mg/dL: High >190 mg/dL: Very High CARDIAC RISK RATIO 4.6(H) 3.3 - 4.4 C [facility] Blood 08/24/2023 8:52 AM EST 08/24/2023 8:54 AM EST us Farnaz LGOAN LAB BLOOD BKR ORDERABLES Final Result Performing Organization Address City/State/[facility] Co de Phone Number [address] [address] * (ABNORMAL) Basic metabolic panel (08/24/2023 8:52 AM EST) SODIUM 138 133 - 146 mmol/L [facility] CHLORIDE 102 96 - 108 mmol/L [facility] POTASSIUM 4.2 3.3 - 5.1 mmol/L [facility] CO2 26 21 - 35 mmol/L [facility] BUN 15 6 - 19 mg/dL [facility] CREATININE 0.90 0.5 - 1.5 mg/dL [facility] GLUCOSE 130(H) 70 - 99 mg/dL [facility] CALCIUM 9.5 8.4 - 10.3 mg/dL [facility] EGFR 70 >59 mL/min/1.7 3m2 [facility] Comment:Estimated glomerular filtration rate calculated using the CKD-EPI refit equation. ANION GAP 14 10 - 20 mmol/L [facility] Blood 08/24/2023 8:52 AM EST 08/24/2023 8:54 AM EST us Farnaz LOGAN LAB BLOOD BKR ORDERABLES Final Result [facility] [address] [place] [address] * ENDOSCOPY, COLON (03/10/2023 11:24 AM EDT) Narrative Transcriptions Nidhi Espinal MD - 03/10/2023 11:24 AM EDT [facility] Patient Name: Bhavna Conde Attending MD:: NIDHI ESPINAL MD, Procedure Date: 03/10/2023 11:24 AM Date of : 1955 Age: 67 Admit Type: Outpatient Gender: Female Room: [place] [address] Referring MD: [place], BARBARA MONROY MD Exam Type: Colonoscopy Indications: Abdominal [...] monitored continuously. The Olympus adult variable colonoscope [id number] #5 was introduced through the anus and [...] 11:24 AM Procedure Code(s): --- Professional --- 67422, Colonoscopy, flexible; with control of bleeding, any method --- Technical --- 39420, Colonoscopy, flexible; with control of bleeding, any [...] of anus and rectum CPT copyright 2021 [employer]. All rights reserved. The codes documented in this report are preliminary and upon loans consultant reviewmay be revised to meet current compliance requirements. Procedure Date: 03/10/2023 11:24:[address] [place] [address] [place] DO GI PROCEDURE ORDERABLES [...] (MLO 14/81). No suspicious calcifications are seen. Barbara Monroy MD IMG MG EXAMS Final Resul t * Fecal immunochemical test x1 (FIT) (11/19/2022 11:00 AM EST) Immuno Fecal Occult Negative Negative [facility] Stool (Stool) 11/19/2022 11: 00 AM EST 11/19/2022 12:14 PM EST Aura Soler NP LAB BODY FLUIDS AND STOOL ORDERABLES Final Result [address] [address] from Last 3 Months or Most Recently Relevant to Health Maintenance Insurance MEDICARE PART A & B Member Subscriber Plan / Payer (Ef fective 2020-Present) Name:Bhavna Conde Member ID:[id number] Relation to Subscriber:Self Name:Bhavna Conde Subscriber ID:[id number] Payer ID:[id number] Group ID:Not on file Type:Medicare Address: [employer] [address] [place] [address] [place] [address] freshbag CHOICE PLUS Member Subscriber Plan / Payer ( fective 2024-Present) Name:Bhavna Conde Member ID:[id number] Relation to Subscriber:Self Name:AmayaGuerdaan Subscriber ID:[id number] Payer ID:[id number] (NAIC) Type:PPO Address: [place] [address] MEDICARE PART A & B [employer] MEDICARE PART A & B MEDICARE PART A & B Member Subscriber Plan / Payer ( fective 2020-) Name:Bhavna Conde Member ID:[id number] Relation to Subscriber:Self Name:Bhavna Conde Subscriber ID:[id number] Payer ID:[id number] Group ID:Not on file Type:Medicare Address: [employer] [address] [place] [address] MEDICARE PART A & B CHOICE PLUS MEDICARE PART A & B MEDICARE PART A & B CHOICE PLUS MEDICARE PART A & B [employer] PLUS Member Subscriber Plan / Payer ( fective 2024-) Name:Bhavna Conde Member ID:[id number] Relation to Subscriber:Self Name:Bhavna Conde Subscriber ID:[id number] Payer ID:[id number] (NAIC) Type:[facility] Address: [place] [id number] MEDICARE PART A & B [place] [employer] Advance Directives For more information, please contact: [phone] (9AM - 5PM [place]/[facility], Tuesday-Tuesday) * Full Code (Confirmed) (Latest Code Status on File) Date Activated Date Inactivated Comments 02/13/2020 4:09 PM 04/10/2020 12:33 PM Question Answer Comments Code Status Confirmed With: Patient Care Teams Field Service Tech Relationship Specialty Start Date End Date Barbara Monroy MD [address] [place] [address] [email or web address] PCP - General Internal Medicine 01/22/22 Casey Lofton MD Gastroenterology 02/14/20 Additional Source Comments The information contained in this document represents components of the legal health record. It is not the complete legal health record.[facility]
--- OUTSIDE RECORDS SUMMARY | 2025-08-13 11:49 | XMS_ITS | Encounter Summary ---
Author Organization [facility] Address [address] [place] [address] Phone Care Team Providers Care Felled Seam Operator Chainstitch Name Role Phone Linda Holloway MD Unavailable [phone] Kenisha Flores MD Unavailable + Salena Cardenas MD Unavailable [phone] Shay Dao MD Unavailable [phone] Farnaz Aranda Primary Care Provider [phone] Casey Lofton MD Unavailable Unavailabl e Barbara Monroy MD Primary Care Provider Encounter Details Date Type Department Care Team (Late st Contact Info) Description 06/29/2021 Procedure Pass [facility], Ct Scan - [address] [address] Social History Tobacco Use Types Packs/Day Years [...] on filedocumented in this encounter Care Teams Felled Seam Operator Chainstitch Relationship Specialty Start Date End Date Farnaz Aranda PA 15 [place] [address] [email or web address] PCP - General Unknown Provider Specialty 07/23/19 01/21/22 Barbara Monroy MD 15 [place] [address] PCP - General Internal Medicine 01/22/22 Linda Holloway MD 15 [facility], 2nd [place] [address] Historical LMR Provider 07/25/17 10/17/21 Kenisha Flores MD [address] [place] [address] [email or web address] Historical LMR Provider 07/25/17 10/17/21 Salena Cardenas MD [address] [address] [email or web address] Historical LMR Provider 07/25/17 10/17/21 Shay Dao MD [address] [place] [address] Historical LMR Provider 07/25/17 10/17/21 Casey Lofton MD Gastroenterology 02/14/20 documented as of this encounter Additional Source Comments The information contained in this document represents components of the legal health record. It is not the complete legal health record.[facility]
--- OUTSIDE RECORDS SUMMARY | 2025-08-13 11:49 | XMS_ITS | Encounter Summary ---
Author Organization [facility] Address [address] [place] [address] Phone Care Team Providers Care Lamp Shades Supervisor Name Role Phone Linda Holloway MD Unavailable [phone] Kenisha Flores MD Unavailable + Salena Cardenas MD Unavailable [phone] Shay Dao MD Unavailable [phone] Farnaz Aranda Primary Care Provider [phone] Casey Lofton MD Unavailable Unavailabl e Barbara Monroy MD Primary Care Provider Encounter Details Date Type Department Care Team (Latest Contact Info) Description 10/15/2019 Transcribe Orders [facility] Phleb [address] [address] Farnaz Aranda PA [address] [place] [address] [email or web address] Hypertension, unspecified type (Primary Dx); Low vitamin [...] D (TOTAL) 24(L) 30 - 60 ng/mL [facility] Blood 10/15/2019 10:4 1 AM EST 10/15/2019 10:48 AM EST Farnaz LOGAN LAB BLOOD BKR ORDERABLES Final Result Performing Organization Address City/[facility]/ZIP Co de Phone Number [address] [address] * (ABNORMAL) Basic metabolic panel (10/15/2019 10:41 AM EST) SODIUM 139 133 - 146 mmol/L [facility] CHLORIDE 100 96 - 108 mmol/L [facility] POTASSIUM 3.8 3.3 - 5.1 mmol/L [facility] CO2 25 21 - 35 mmol/L [facility] BUN 12 6 - 19 mg/dL [facility] CREATININE 0.70 0.5 - 1.5 mg/dL [facility] GLUCOSE 202(H) 70 - 99 mg/dL [facility] CALCIUM 9.4 8.4 - 10.3 mg/dL [facility] EGFR 92 >59 mL/min/1.7 3m2 [facility] Comment:If patient is black, multiply result by 1.159. Estimated glomerular filtration rate calculated using the CKD-EPI equation. ANION GAP 18 10 - 20 mmol/L [facility] Blood 10/15/2019 10:4 1 AM EST 10/15/2019 10:48 AM EST Farnaz LOGAN LAB BLOOD BKR ORDERABLES Final Result Performing Organization Address City/[facility]/ZIP Co de Phone Number [address] [address] documented in this encounter Visit Diagnoses Diagnosis Hypertension, unspecified type- Primary Low vitamin D level documented in this encounter Additional Health Concerns Infection Onset Date Last Indicated Resolved Time Clearance-CoV Comment:Auto-resolved with negative COVID-19 PCR 02/13/2020 02/13/2020 02/13/2020 4:00 PM E DT CoV-Risk Comment:COVID-19 test pending Adm from home 02/13/2020 02/13/2020 02/14/2020 12:27 PM EDT documented as of this encounter Care Teams Lamp Shades Supervisor Relationship Specialty Start Date End Date Farnaz Aranda PA [address] [place] [address] [email or web address] PCP - General Unknown Provider Specialty 07/23/19 01/21/22 Barbara Monroy MD 15 [place] [address] [email or web address] PCP - General Internal Medicine 01/22/22 Linda Holloway MD 15 [facility], 2nd [place] [address] Historical LMR Provider 07/25/17 10/17/21 Kenisha Flores MD [address] [place] [address] [email or web address] Historical LMR Provider 07/25/17 10/17/21 Salena Cardenas MD [address] [address] [email or web address] Historical LMR Provider 07/25/17 10/17/21 Shay Dao MD 41 [place] [address] Historical LMR Provider 07/25/17 10/17/21 Casey Lofton MD Gastroenterology 02/14/20 documented as of this encounter Additional Source Comments The information contained in this document represents components of the legal health record. It is not the complete legal health record.[facility]
--- OUTSIDE RECORDS SUMMARY | 2025-08-13 11:49 | XMS_ITS | Encounter Summary ---
Author Organization [facility] Address [address] [place] [address] Phone Care Team Providers Care Fashion Illustrator Name Role Phone Casey Lofton MD [facility] Barbara Dumont MD Primary Care Provider [phone] Reason for Referral * MRI/CAT Scan - Closed Specialty Diagnoses / Procedures Referred By Clarice thompson Referred To Contact Radiology Diagnoses Chronic sinusitis, unspecified location Procedures CT Face Farnaz Aranda PA Phone: tel: fax: mailto:[email or web address] Referral ID Status Reason Start Date Expiration Date Visits Re quested Visits Authorized [id number] Closed 08/17/2022 08/17/2023 1 1 Encounter Details Date Type Department Care Team (Latest Contact Info) Description 08/17/2022 Transcribe Orders Virtual Department [address] [place] [address] Farnaz Aranda PA [address] [place] [address] [email or web address] Chronic sinusitis, unspecified location (Primary Dx) [...] location documented in this encounter Care Teams Fashion Illustrator Relationship Specialty Start Date End Date Barbara Monroy MD [address] [place] [address] [email or web address] PCP - General Internal Medicine 01/22/22 Casey Lofton MD Gastroenterology 02/14/20 documented as of this encounter Additional Source Comments The information contained in this document represents components of the legal health record. It is not the complete legal health record.[facility]
--- OUTSIDE RECORDS SUMMARY | 2025-08-13 11:49 | XMS_ITS | Encounter Summary ---
Author Organization [facility] Address [address] [place] [address] Phone Care Team Providers Care Educational Psychologist Name Role Phone Linda Holloway MD Unavailable [phone] Kenisha Flroes MD Unavailable + Salena Cardenas MD Unavailable [phone] Shay Dao MD Unavailable [phone] Kenisha Flores MD Primary Care Prov ider Farnaz Aranda Primary Care Provider [phone] Casey Lofton MD Unavailable Unavailabl e Barbara Monory MD Primary Care Provider [phone] Encounter Details Date Type Department Care Team (Latest Contact Info) Description 07/16/2019 Transcribe Orders [facility] Phleb [address] [address] Farnaz Aranda PA [address] [place] [address] [email or web address] High glucose (Primary Dx); Routine general medical [...] EDT) WBC NONE SEEN NONE SEEN /hpf [facility] RBC 0-2(A) NONE SEEN /hpf [facility] URINE EPITHELIAL 0-4(A) NONE SEEN [facility] MUCUS NONE SEEN NONE SEEN /hpf [facility] BACTERIA NONE SEEN NONE SEEN [facility] COLOR Yellow Yellow [facility] CLARITY Clear [facility] GLUCOSE Negative Negative [facility] BILI Negative Negative [facility] KETONES Negative Negative [facility] SPECIFIC GRAVITY 1.015 1.005 - 1.030 [facility] BLOOD Negative Negative [facility] PH 6.0 5.0 - 8.0 [facility] Protein-UA Negative Negative [facility] NITRITE Negative Negative [facility] Leukocyte esterase, ur Negative Negative [facility] Urine (Urine) 07/16/2019 9:3 2 AM EDT 07/16/2019 9:44 AM EDT us Farnaz [facility]AN [facility] URINE ORDERABLES Final Resu lt Performing Organization Address City/State/[facility] Co de Phone Number [address] [address] * (ABNORMAL) CBC and differential (07/16/2019 9:32 AM EDT) WBC 10.18 3.40 - 11.20 K/uL [facility] RBC 4.97(H) 3.80 - 4.80 M/uL [facility] HGB 14.4 12.0 - 15.0 g/dL [facility] HCT 43.4 36.0 - 46.0 % [facility] PLT 294 130 - 400 K/uL [facility] MCV 87.3 79.0 - 98.0 fL [facility] MCH 29.0 27.0 - 34.8 pg [facility] MCHC 33.2 31.5 - 36.0 g/dL [facility] RDW 12.7 10.8 - 14.6 % [facility] MPV 9.6 9.4 - 12.4 [facility] NRBC 0.00 0.00 /100 WBCs [facility] ABSOLUTE NRBC 0.00 0.00 K/uL [facility] DIFF METHOD Auto [facility] NEUTS 64.2 45.30 - 77.70 % [facility] LYMPHS 25.7 12.30 - 39.70 % [facility] MONOS 5.9 4.10 - 12.80 % [facility] EOS 2.4 0 - 7.2 % [facility] BASOS 1.3 0 - 2.80 % [facility] Granulocytes, immature (%) 0.5 0.0 - 0.9 % [facility] ABSOLUTE NEUTS 6.54 1.40 - 7.70 K/uL [facility] ABSOLUTE LYMPHS 2.62 0.60 - 3.20 K/uL [facility] ABSOLUTE MONOS 0.60(H) 0.11 - 0.59 K/uL [facility] ABSOLUTE EOS 0.24 0.01 - 0.50 K/uL [facility] ABSOLUTE BASOS 0.13(H) 0.00 - 0.08 K/uL [facility] Granulocytes, immature 0.05 0.00 - 0.05 K/uL [facility] Blood 07/16/2019 9:32 AM EDT 07/16/2019 9:44 AM EDT us Farnaz [facility] BLOOD BKR ORDERABLES Final Result [facility] [address] [place] [address] * TSH with reflex (07/16/2019 9:32 AM EDT) TSH 2.89 0.27 - 4.20 uIU/mL [facility] Blood 07/16/2019 9:32 AM EDT 07/16/2019 9:44 AM EDT us Farnaz LOGAN [facility] BLOOD BKR ORDERABLES Final Result Performing Organization Address [facility] Co de Phone Number [address] [address] * (ABNORMAL) Lipid panel (07/16/2019 9:32 AM EDT) HDL 43 mg/dL [facility] Comment: Interpretation <40 mg/dL: Low HDL cholesterol (major risk factor for CHD) Greater than or equal to 60 mg/dL: High HDL cholesterol ( negative risk factor for CHD) HDL - cholesterol is affected by a number of factors, e.g. smoking, excerise, hormones, sex and age. CHOLESTEROL 234 0 - 240 mg/dL [facility] TRIGLYCERIDES 315(H) 30 - 160 mg/dL [facility] LDL 128 50 - 129 mg/dL [facility] Comment: LDL levels in terms of risk for coronary heart disease: <100 mg/dL: Optimal 100-129 mg/dL: Near or above optimal 130-159 mg/dL: Borderline high 160-189 mg/dL: High >190 mg/dL: Very High CARDIAC RISK RATIO 5.4(H) 3.3 - 4.4 C [facility] Blood 07/16/2019 9:32 AM EDT 07/16/2019 9:44 AM EDT us Farnaz LOGAN [facility] BLOOD BKR ORDERABLES Final Result Performing Organization Address [facility] Co de Phone Number [address] [address] * (ABNORMAL) Comprehensive metabolic panel (07/16/2019 9:32 AM EDT) SODIUM 141 133 - 146 mmol/L [facility] POTASSIUM 4.2 3.3 - 5.1 mmol/L [facility] CHLORIDE 100 96 - 108 mmol/L [facility] CO2 28 21 - 35 mmol/L [facility] BUN 12 6 - 19 mg/dL [facility] CREATININE 0.60 0.5 - 1.5 mg/dL [facility] GLUCOSE 120(H) 70 - 99 mg/dL [facility] ALBUMIN 4.4 3.9 - 4.8 g/dL [facility] TOTAL PROTEIN 7.5 6.5 - 8.0 g/dL [facility] CALCIUM 10.4(H) 8.4 - 10.3 mg/dL [facility] ALKALINE PHOSPHATASE 91 39 - 117 U/L [facility] TOTAL BILIRUBIN 0.4 0.0 - 1.2 mg/dL [facility] AST 24 0 - 37 U/L [facility] ALT 21 0 - 40 U/L [facility] GLOBULIN 3.1 1 - 4.8 g/dL [facility] EGFR 96 >59 mL/min/1.7 3m2 [facility] Comment:If patient is black, multiply result by 1.159. Estimated glomerular filtration rate calculated using the CKD-EPI equation. ANION GAP 17 10 - 20 mmol/L [facility] Blood 07/16/2019 9:32 AM EDT 07/16/2019 9:44 AM EDT us Farnaz [facility]AN [facility] BLOOD BKR ORDERABLES Final Result Performing Organization Address City/State/[facility] Co de Phone Number [address] [address] documented in this encounter Visit Diagnoses Diagnosis [...] documented as of this encounter Care Teams Educational Psychologist Relationship Specialty Start Date End Date Kenisha Flores MD [address] [place] [address] [email or web address] PCP - General 10/13/17 07/22/19 Farnaz Aranda PA [address] [place] [address] [email or web address] PCP - General Unknown Provider Specialty 07/23/19 01/21/22 Barbara Monroy MD 15 [place] [address] PCP - General Internal Medicine 01/22/22 Linda Holloway MD [address] [address] [email or web address] Historical LMR Provider 07/25/17 10/17/21 Kenisha Flores MD [address] [place] [address] [email or web address] Historical LMR Provider 07/25/17 10/17/21 Salena Cardenas MD [address] [address] [email or web address] Historical LMR Provider 07/25/17 10/17/21 Shay Dao MD [address] [place] [address] Historical LMR Provider 07/25/17 10/17/21 Casey Lofton MD Gastroenterology 02/14/20 documented as of this encounter Additional Source Comments The information contained in this document represents components of the legal health record. It is not the complete legal health record.[facility]
--- OUTSIDE RECORDS SUMMARY | 2025-08-13 11:49 | XMS_ITS | Encounter Summary ---
Author Organization [facility] Address [address] [place] [address] Phone Care Team Providers Care Theatrical Trouper Name Role Phone Farnaz Aranda Primary Care Provider [phone] Casey Lofton MD [facility] Barbara Dumont MD Primary Care Provider [phone] Encounter Details Date Type Department Care Team (Latest Contact Info) Description 01/15/2022 Transcribe Orders Virtual Department [address] [place] [address] Farnaz Aranda PA [address] [place] [address] [email or web address] Breast screening (Primary Dx) Social History Tobacco [...] unspecified documented in this encounter Care Teams Theatrical Trouper Relationship Specialty Start Date End Date Farnaz Aranda PA [address] [place] [address] [email or web address] PCP - General Unknown Provider Specialty 07/23/19 01/21/22 Barbara Monroy MD [address] [place] [address] [email or web address] PCP - General Internal Medicine 01/22/22 Casey Lofton MD Gastroenterology 02/14/20 documented as of this encounter Additional Source Comments The information contained in this document represents components of the legal health record. It is not the complete legal health record.[facility]
--- OUTSIDE RECORDS SUMMARY | 2025-08-13 11:49 | XMS_ITS | Encounter Summary ---
Author Organization [facility] Address [address] [place] [address] Phone Care Team Providers Care Retail Grocer Name Role Phone Casey Lofton MD, Christine D MD Primary Care Provider [phone] Encounter Details Date Type Department Care Team (Late st Contact Info) Description 09/21/2022 Procedure Pass [facility], Ct Scan - [address] [address] Social History Tobacco Use Types Packs/Day Years [...] 3:31 PM EST Dana Gandara RN * [place] Suicide Severity Rating Scale (Screener/Recent Self-Report) Question [...] on filedocumented in this encounter Care Teams Retail Grocer Relationship Specialty Start Date End Date Barbara Monroy MD [address] [place] [address] [email or web address] PCP - General Internal Medicine 01/22/22 Casey Lofton MD Gastroenterology 02/14/20 documented as of this encounter Additional Source Comments The information contained in this document represents components of the legal health record. It is not the complete legal health record.[facility]
--- OUTSIDE RECORDS SUMMARY | 2025-08-13 11:49 | XMS_ITS | Encounter Summary ---
Author Organization [facility] Address [address] [place] [address] Phone Care Team Providers Care Sales Broker Name Role Phone Linda Holloway MD Unavailable [phone] Kenisha Flores MD Unavailable + Salena Cardenas MD Unavailable [phone] Shay Dao MD Unavailable [phone] Farnaz Aranda Primary Care Provider [phone] Casey Lofton MD Unavailable Unavailabl e Barbara Monroy MD Primary Care Provider Encounter Details Date Type Department Care Team (Late st Contact Info) Description 09/24/2020 Procedure Pass [facility], Ct Scan - [address] [address] Social History Tobacco Use Types Packs/Day Years [...] on filedocumented in this encounter Care Teams Sales Broker Relationship Specialty Start Date End Date Farnaz Aranda PA [address] [place] [address] [email or web address] PCP - General Unknown Provider Specialty 07/23/19 01/21/22 Barbara Monroy MD 15 [place] [address] PCP - General Internal Medicine 01/22/22 Linda Holloway MD 15 [facility] [place] [address] Historical LMR Provider 07/25/17 10/17/21 Kenisha Flores MD [address] [place] [address] [email or web address] Historical LMR Provider 07/25/17 10/17/21 Salena Cardenas MD [address] [address] [email or web address] Historical LMR Provider 07/25/17 10/17/21 Shay Dao MD [address] [place] [address] Historical LMR Provider 07/25/17 10/17/21 Casey Lofton MD Gastroenterology 02/14/20 documented as of this encounter Additional Source Comments The information contained in this document represents components of the legal health record. It is not the complete legal health record.[facility]
--- OUTSIDE RECORDS SUMMARY | 2025-08-13 11:49 | XMS_ITS | Encounter Summary ---
Author Organization [facility] Address [address] [place] [address] Phone Care Team Providers Care New Autos Delivery Driver Name Role Phone Linda Holloway MD Unavailable [phone] Kenisha Flores MD Unavailable + Salena Cardenas MD Unavailable [phone] Shay Dao MD Unavailable [phone] Farnaz Aranda Primary Care Provider [phone] Casey Lofton MD Unavailable Unavailabl e Barbara Monroy MD Primary Care Provider Encounter Details Date Type Department Care Team (Latest Contact Info) Description 08/27/2019 Transcribe Orders [facility] Phleb [address] [address] Farnaz Aranda PA [address] [place] [address] .[employer] Hypertension, unspecified type (Primary Dx); Vitamin D [...] D (TOTAL) 19(L) 30 - 60 ng/mL [facility] Blood 08/27/2019 8:30 AM EST 08/27/2019 9:16 AM EST Farnaz [facility] BLOOD BKR ORDERABLES Final Result Performing Organization Address City/[facility]/ZIP Co de Phone Number [address] [address] * (ABNORMAL) Basic metabolic panel (08/27/2019 8:30 AM EST) SODIUM 142 133 - 146 mmol/L [facility] CHLORIDE 104 96 - 108 mmol/L [facility] POTASSIUM 4.4 3.3 - 5.1 mmol/L [facility] CO2 27 21 - 35 mmol/L [facility] BUN 12 6 - 19 mg/dL [facility] CREATININE 0.70 0.5 - 1.5 mg/dL [facility] GLUCOSE 130(H) 70 - 99 mg/dL [facility] CALCIUM 9.4 8.4 - 10.3 mg/dL [facility] EGFR 92 >59 mL/min/1.7 3m2 [facility] Comment:If patient is black, multiply result by 1.159. Estimated glomerular filtration rate calculated using the CKD-EPI equation. ANION GAP 15 10 - 20 mmol/L [facility] Blood 08/27/2019 8:30 AM EST 08/27/2019 9:16 AM EST Farnaz Aranda [place] LAB BLOOD BKR ORDERABLES Final Result Performing Organization Address City/[facility]/ZIP Co de Phone Number [address] [address] documented in this encounter Visit Diagnoses Diagnosis Hypertension, unspecified type- Primary Vitamin D deficiency documented in this encounter Additional Health Concerns Infection Onset Date Last Indicated Resolved Time Clearance-CoV Comment:Auto-resolved with negative COVID-19 PCR 02/13/2020 02/13/2020 02/13/2020 4:00 PM E DT CoV-Risk Comment:COVID-19 test pending Adm from home 02/13/2020 02/13/2020 02/14/2020 12:27 PM EDT documented as of this encounter Care Teams New Autos Delivery Driver Relationship Specialty Start Date End Date Farnaz Aranda PA [address] [place] [address] .[employer] PCP - General Unknown Provider Specialty 07/23/19 01/21/22 Barbara Monroy MD 15 [place] [address] PCP - General Internal Medicine 01/22/22 Linda Holloway MD 15 [facility], 2nd [place] [address] Historical LMR Provider 07/25/17 10/17/21 Kenisha Flores MD [address] [place] [address] [email or web address] Historical LMR Provider 07/25/17 10/17/21 Salena Cardenas MD [address] [address] [email or web address] Historical LMR Provider 07/25/17 10/17/21 Shay Dao MD 41 [place] [address] Historical LMR Provider 07/25/17 10/17/21 Casey Lofton MD Gastroenterology 02/14/20 documented as of this encounter Additional Source Comments The information contained in this document represents components of the legal health record. It is not the complete legal health record.[facility]
--- OUTSIDE RECORDS SUMMARY | 2025-08-13 11:49 | XMS_ITS | Encounter Summary ---
Author Organization [facility] Address [address] [place] [address] Phone Care Team Providers Care Chemical Equipment Controller Name Role Phone Linda Holloway MD Unavailable [phone] Kenisha Flores MD Unavailable + Salena Cardenas MD Unavailable [phone] Shay Dao MD Unavailable [phone] Farnaz Aranda Primary Care Provider [phone] Casey Lofton MD Unavailable Unavailabl e Barbara Monroy MD Primary Care Provider Encounter Details Date Type Department Care Team (Latest Contact Info) Description 11/02/2019 Transcribe Orders [facility] Phleb [address] [address] Farnaz Aranda PA [address] [place] [address] [email or web address] Elevated glucose (Primary Dx); Hypertension, unspecified type [...] HEMOGLOBIN A1C 6.4(H) 4.3 - 5.8 % [facility] Blood 11/02/2019 8:42 AM EST 11/02/2019 9:16 AM EST Farnaz LOGAN LAB BLOOD BKR ORDERABLES Final Result [address] [address] * (ABNORMAL) Basic metabolic panel (11/02/2019 8:42 AM EST) SODIUM 141 133 - 146 mmol/L [facility] CHLORIDE 99 96 - 108 mmol/L [facility] POTASSIUM 4.3 3.3 - 5.1 mmol/L [facility] CO2 27 21 - 35 mmol/L [facility] BUN 17 6 - 19 mg/dL [facility] CREATININE 0.80 0.5 - 1.5 mg/dL [facility] GLUCOSE 136(H) 70 - 99 mg/dL [facility] CALCIUM 10.3 8.4 - 10.3 mg/dL [facility] EGFR 78 >59 mL/min/1.7 3m2 [facility] Comment:If patient is black, multiply result by 1.159. Estimated glomerular filtration rate calculated using the CKD-EPI equation. ANION GAP 19 10 - 20 mmol/L [facility] Blood 11/02/2019 8:42 AM EST 11/02/2019 9:16 AM EST Farnaz LOGAN LAB BLOOD BKR ORDERABLES Final Result [address] [address] documented in this encounter Visit Diagnoses Diagnosis Elevated glucose- Primary Other abnormal glucose Hypertension, unspecified type documented in this encounter Additional Health Concerns Infection Onset Date Last Indicated Resolved Time Clearance-CoV Comment:Auto-resolved with negative COVID-19 PCR 02/13/2020 02/13/2020 02/13/2020 4:00 PM E DT CoV-Risk Comment:COVID-19 test pending Adm from home 02/13/2020 02/13/2020 02/14/2020 12:27 PM EDT documented as of this encounter Care Teams Chemical Equipment Controller Relationship Specialty Start Date End Date Farnaz Aranda PA [address] [place] [address] [email or web address] PCP - General Unknown Provider Specialty 07/23/19 01/21/22 Barbara Monroy MD 15 [place] [address] PCP - General Internal Medicine 01/22/22 Linda Holloway MD 15 [facility], [address] [place] [address] Historical LMR Provider 07/25/17 10/17/21 Kenisha Flores MD [address] [place] [address] [email or web address] Historical LMR Provider 07/25/17 10/17/21 Salena Cardenas MD [address] [address] [email or web address] Historical LMR Provider 07/25/17 10/17/21 Shay Dao MD [address] [place] [address] Historical LMR Provider 07/25/17 10/17/21 Casey Lofton MD Gastroenterology 02/14/20 documented as of this encounter Additional Source Comments The information contained in this document represents components of the legal health record. It is not the complete legal health record.[facility]
--- OUTSIDE RECORDS SUMMARY | 2025-08-13 11:49 | XMS_ITS | Encounter Summary ---
Author Organization [facility] Address [address] [place] [address] Phone Care Team Providers Care Grounds Restoration Specialist Name Role Phone Linda Holloway MD Unavailable [phone] Kenisha Flores MD Unavailable + Salena Cardenas MD Unavailable [phone] Shay Dao MD Unavailable [phone] Farnaz Aranda Primary Care Provider [phone] Casey Lofton MD Unavailable Unavailabl e Barbara Monroy MD Primary Care Provider Encounter Details Date Type Department Care Team (Latest Contact Info) Description 01/15/2020 Transcribe Orders [facility] Phleb [address] [address] Farnaz Aranda PA [address] [place] [address] [email or web address] Hypertension, unspecified type (Primary Dx) Social History [...] EDT) SODIUM 139 133 - 146 mmol/L [facility] CHLORIDE 99 96 - 108 mmol/L [facility] POTASSIUM 4.2 3.3 - 5.1 mmol/L [facility] CO2 29 21 - 35 mmol/L [facility] BUN 16 6 - 19 mg/dL [facility] CREATININE 0.80 0.5 - 1.5 mg/dL [facility] GLUCOSE 140(H) 70 - 99 mg/dL [facility] CALCIUM 9.6 8.4 - 10.3 mg/dL [facility] EGFR 78 >59 mL/min/1.7 3m2 [facility] Comment:If patient is black, multiply result by 1.159. Estimated glomerular filtration rate calculated using the CKD-EPI equation. ANION GAP 15 10 - 20 mmol/L [facility] Blood 01/15/2020 7:43 AM EDT 01/15/2020 8:32 AM EDT us Farnaz LOGAN LAB BLOOD BKR ORDERABLES Final Result Performing Organization Address City/State/[facility] Co de Phone Number [facility] [address] [place] [address] documented in this encounter Visit Diagnoses Diagnosis Hypertension, unspecified type- Primary documented in this encounter Additional Health Concerns Infection Onset Date Last Indicated Resolved Time Clearance-CoV Comment:Auto-resolved with negative COVID-19 PCR 02/13/2020 02/13/2020 02/13/2020 4:00 PM E DT CoV-Risk Comment:COVID-19 test pending Adm from home 02/13/2020 02/13/2020 02/14/2020 12:27 PM EDT documented as of this encounter Care Teams Grounds Restoration Specialist Relationship Specialty Start Date End Date Farnaz Aranda PA [address] [place] [address] [email or web address] PCP - General Unknown Provider Specialty 07/23/19 01/21/22 Barbara Monroy MD 15 [place] [address] [email or web address] PCP - General Internal Medicine 01/22/22 Linda Holloway MD 15 [facility], [address] [place] [address] [email or web address] Historical LMR Provider 07/25/17 10/17/21 Kenisha Flores MD [address] [place] [address] [email or web address] Historical LMR Provider 07/25/17 10/17/21 Salena Cardenas MD [address] [address] [email or web address] Historical LMR Provider 07/25/17 10/17/21 Shay Dao MD [address] [place] [address] Historical LMR Provider 07/25/17 10/17/21 Casey Lofton MD Gastroenterology 02/14/20 documented as of this encounter Additional Source Comments The information contained in this document represents components of the legal health record. It is not the complete legal health record.[facility]
--- OUTSIDE RECORDS SUMMARY | 2025-08-13 11:49 | XMS_ITS | Encounter Summary ---
Author Organization [facility] Address [address] [place] [address] Phone Care Team Providers Care Filter Washer And Presser Name Role Phone Farnaz Aranda Primary Care Provider [phone] Casey Lofton MD [facility] Barbara Dumont MD Primary Care Provider [phone] Encounter Details Date Type Department Care Team (Late st Contact Info) Description 01/15/2022 Transcribe Orders Virtual Department [address] [place] [address] Farnaz Aranda PA [address] [place] [address] [email or web address] (Primary Dx) Social History Tobacco Use [...] Cough documented in this encounter Care Teams Filter Washer And Presser Relationship Specialty Start Date End Date Farnaz Aranda PA [address] [place] [address] .[employer] PCP - General Unknown Provider Specialty 07/23/19 01/21/22 Barbara Monroy MD [address] [place] [address] PCP - General Internal Medicine 01/22/22 Casey Lofton MD Gastroenterology 02/14/20 documented as of this encounter Additional Source Comments The information contained in this document represents components of the legal health record. It is not the complete legal health record.[facility]
--- OUTSIDE RECORDS SUMMARY | 2025-08-13 11:49 | XMS_ITS | Encounter Summary ---
Author Organization [facility] Address [address] [place] [address] Phone Care Team Providers Care Director Vaccine Name Role Phone Linda Holloway MD Unavailable [phone] Kenisha Flores MD Unavailable + Salena Cardenas MD Unavailable [phone] Shay Dao MD Unavailable [phone] Farnaz Aranda Primary Care Provider [phone] Casey Lofton MD Unavailable Unavailabl e Barbara Monroy MD Primary Care Provider [phone] Encounter Details Date Type Department Care Team (Late st Contact Info) Description 12/07/2019 Ancillary Orders [facility], X-Ray - [address] [address] Farnaz Aranda PA 15 [place] [address] [email or web address] Cough Social History Tobacco Use Types Packs/Day [...] documented as of this encounter Care Teams Director Vaccine Relationship Specialty Start Date End Date Farnaz Aranda PA [address] [place] [address] [email or web address] PCP - General Unknown Provider Specialty 07/23/19 01/21/22 Barbara Monroy MD 15 [place] [address] PCP - General Internal Medicine 01/22/22 Linad Holloway MD 15 [facility], [address] [place] [address] Historical LMR Provider 07/25/17 10/17/21 Kenisha Flores MD [address] [place] [address] [email or web address] Historical LMR Provider 07/25/17 10/17/21 Salena Cardenas MD [address] [address] [email or web address] Historical LMR Provider 07/25/17 10/17/21 Shay Dao MD 41 [place] [address] Historical LMR Provider 07/25/17 10/17/21 Casey Lofton MD Gastroenterology 02/14/20 documented as of this encounter Additional Source Comments The information contained in this document represents components of the legal health record. It is not the complete legal health record.[facility]
--- OUTSIDE RECORDS SUMMARY | 2025-08-13 11:49 | XMS_ITS | Encounter Summary ---
Author Organization [facility] Address [address] [place] [address] Phone Care Team Providers Care Vehicle Washer Name Role Phone Linad Holloway MD Unavailable [phone] Kenisha Flores MD Unavailable + Salena Cardenas MD Unavailable [phone] Shay Dao MD Unavailable [phone] Farnaz Aranda Primary Care Provider [phone] Casey Lofton MD Unavailable Unavailabl e Barbara Monroy MD Primary Care Provider Encounter Details Date Type Department Care Team (Latest Contact Info) Description 12/13/2019 Transcribe Orders Virtual Department 30 [place] [address] Farnaz Aranda PA [address] [place] [address] [email or web address] Shortness of breath (Primary Dx) Social History [...] Volumes, DLCO, Spirometry with bronchodilator; Performing Location: [facility] (07/08/2020 7:53 AM EDT) FEV1 2.26 liters [...] documented as of this encounter Care Teams Vehicle Washer Relationship Specialty Start Date End Date Farnaz Aranda PA 15 [place] [address] [email or web address] PCP - General Unknown Provider Specialty 07/23/19 01/21/22 Barbara Monroy MD 15 [place] [address] [email or web address] PCP - General Internal Medicine 01/22/22 Linda Holloway MD 15 [facility], [facility] [place] [address] Historical LMR Provider 07/25/17 10/17/21 Kenisha Flores MD [address] [place] [address] [email or web address] Historical LMR Provider 07/25/17 10/17/21 Salena Cardenas MD [address] [address] [email or web address] Historical LMR Provider 07/25/17 10/17/21 Shay Dao MD 41 [place] [address] Historical LMR Provider 07/25/17 10/17/21 Casey Lofton MD Gastroenterology 02/14/20 documented as of this encounter Additional Source Comments The information contained in this document represents components of the legal health record. It is not the complete legal health record.[facility]
--- OUTSIDE RECORDS SUMMARY | 2025-08-13 11:49 | XMS_ITS | Encounter Summary ---
Author Organization [facility] Address [address] [place] [address] Phone Care Team Providers Care Arrow Point Attacher Name Role Phone Linda Holloway MD Unavailable [phone] Kenisha Flores MD Unavailable + Salena Cardenas MD Unavailable [phone] Shay Dao MD Unavailable [phone] Farnaz Aranda Primary Care Provider [phone] Casey Lofton MD Unavailable Unavailabl e Barbara Monroy MD Primary Care Provider [phone] Encounter Details Date Type Department Care Team (Latest Contact Info) Description 07/30/2019 Transcribe Orders [facility] Phleb [address] [address] Farnaz Aranda PA [address] [place] [address] [email or web address] Serum calcium elevated (Primary Dx); Hypertension, unspecified [...] HEMOGLOBIN A1C 5.8 4.3 - 5.8 % [facility] Blood 07/30/2019 8:49 AM EDT 07/30/2019 10:08 AM EDT Farnaz [facility] LAB BLOOD BKR ORDERABLES Final Result [address] [address] * (ABNORMAL) 25-OH vitamin D (07/30/2019 8:49 AM EDT) Pathologist [facility] 25 OH VIT D (TOTAL) 11(L) 30 - 60 ng/mL [facility] Blood 07/30/2019 8:49 AM EDT 07/30/2019 10:08 AM EDT Farnaz [facility] LAB BLOOD BKR ORDERABLES Final Result [address] [address] * (ABNORMAL) Basic metabolic panel (07/30/2019 8:49 AM EDT) Pathologist [facility] SODIUM 143 133 - 146 mmol/L [facility] CHLORIDE 103 96 - 108 mmol/L [facility] POTASSIUM 4.5 3.3 - 5.1 mmol/L [facility] CO2 28 21 - 35 mmol/L [facility] BUN 11 6 - 19 mg/dL [facility] CREATININE 0.80 0.5 - 1.5 mg/dL [facility] GLUCOSE 136(H) 70 - 99 mg/dL [facility] CALCIUM 9.7 8.4 - 10.3 mg/dL [facility] EGFR 78 >59 mL/min/1.7 3m2 [facility] Comment:If patient is black, multiply result by 1.159. Estimated glomerular filtration rate calculated using the CKD-EPI equation. ANION GAP 17 10 - 20 mmol/L [facility] Blood 07/30/2019 8:49 AM EDT 07/30/2019 10:08 AM EDT us Farnaz [facility] LAB BLOOD BKR ORDERABLES Final Result [facility] 30 [place] [address] documented in this encounter Visit Diagnoses Diagnosis [...] documented as of this encounter Care Teams Arrow Point Attacher Relationship Specialty Start Date End Date Farnaz Aranda PA [address] [place] [address] [email or web address] PCP - General Unknown Provider Specialty 07/23/19 01/21/22 Barbara Monroy MD [address] [place] [address] PCP - General Internal Medicine 01/22/22 Linda Holloway MD [address] [place] [address] Historical LMR Provider 07/25/17 10/17/21 Kenisha Flores MD [address] [place] [address] [email or web address] Historical LMR Provider 07/25/17 10/17/21 Salena Cardenas MD [address] [address] [email or web address] Historical LMR Provider 07/25/17 10/17/21 Shay Dao MD 41 [place] [address] Historical LMR Provider 07/25/17 10/17/21 Casey Lofton MD Gastroenterology 02/14/20 documented as of this encounter Additional Source Comments The information contained in this document represents components of the legal health record. It is not the complete legal health record.[facility]
--- OUTSIDE RECORDS SUMMARY | 2025-08-13 11:49 | XMS_ITS | Encounter Summary ---
Author Organization [facility] Address [address] [place] [address] Phone Care Team Providers Care Water Project Manager Name Role Phone Linda Holloway MD Unavailable [phone] Kenisha Flores MD Unavailable + Salena Cardenas MD Unavailable [phone] Shay Dao MD Unavailable [phone] Kenisha Flores MD Primary Care Prov ider Farnaz Aranda Primary Care Provider [phone] Casey Lofton MD Unavailable Unavailabl e Barbara Monroy MD Primary Care Provider [phone] Encounter Details Date Type Department Care Team (Late st Contact Info) Description 2019 Ancillary Orders Virtual Department 30 [place] [address] Farnaz Aranda PA 15 [place] [address] [email or web address] Breast screening Social History Tobacco Use [...] lowers the sensitivity of mammography. POS - [id number] Narrative 07/23/2019 5:03 PM EDT STUDY: Bilateral [...] whichlowers the sensitivity of mammography. POS - [id number] Farnaz [facility] IMG MG EXAMS Final Result [...] documented as of this encounter Care Teams Water Project Manager Relationship Specialty Start Date End Date Kenisha Flores MD [address] [place] [address] [email or web address] PCP - General 10/13/17 07/22/19 Farnaz Aranda PA [address] [place] [address] [email or web address] PCP - General Unknown Provider Specialty 07/23/19 01/21/22 Barbara Monroy MD 15 [place] [address] PCP - General Internal Medicine 01/22/22 Linda Holloway MD 15 [facility], 2nd [place] [address] Historical LMR Provider 07/25/17 10/17/21 Kenisha Flores MD 238 [place] [address] [email or web address] Historical LMR Provider 07/25/17 10/17/21 Salena Cardenas MD [address] [address] [email or web address] Historical LMR Provider 07/25/17 10/17/21 Shay Dao MD 41 [place] [address] Historical LMR Provider 07/25/17 10/17/21 Casey Lofton MD Gastroenterology 02/14/20 documented as of this encounter Additional Source Comments The information contained in this document represents components of the legal health record. It is not the complete legal health record.[facility]
--- OUTSIDE RECORDS SUMMARY | 2025-08-13 11:49 | XMS_ITS | Encounter Summary ---
Author Organization [facility] Address [address] [place] [address] Phone Care Team Providers Care Spa Supervisor Name Role Phone Casey Lofton MD Unavailable [facility] e Barbara Monroy MD Primary Care Provider [phone] Encounter Details Date Type Department Care Team (Late st Contact Info) Description 09/15/2022 Procedure Pass [facility], Ct Scan - [address] [address] Social History Tobacco Use Types Packs/Day Years [...] on filedocumented in this encounter Care Teams Spa Supervisor Relationship Specialty Start Date End Date Barbara Monroy MD [address] [place] [phone] [email or web address] PCP - General Internal Medicine 01/22/22 Casey Lofton MD Gastroenterology 02/14/20 documented as of this encounter Additional Source Comments The information contained in this document represents components of the legal health record. It is not the complete legal health record.[facility]
--- OUTSIDE RECORDS SUMMARY | 2025-08-13 11:50 | XMS_ITS | Encounter Summary ---
Author Organization [facility] Address [address] [place] [address] Phone Care Team Providers Care Business Unit Manager Name Role Phone Linda Holloway MD Unavailable [phone] Kenisha Flores MD Unavailable + Salena Cardenas MD Unavailable [phone] Shay Dao MD Unavailable [phone] Farnaz Aranda Primary Care Provider [phone] Casey Lofton MD Unavailable Unavailabl e Barbara Monroy MD Primary Care Provider Encounter Details Date Type Department Care Team (Latest Contact Info) Description 02/13/2020 Transcribe Orders [facility] Specimen Processing 30 [place] [address] Carley Falcon PA-C 30 [place] [address] [email or web address] COVID-19 (Primary Dx) Social History [...] 2:51 PM EDT) Specimen Source [facility] COVID Testing Status In-house testing being performed [facility] Other 02/13/2020 2:51 PM EDT 02/13/2020 3:06 PM EDT us Carley Falcon PA-C LAB GENERAL ORDERABLES Fi nal Result [facility] 30 [place] [address] documented in this encounter Visit Diagnoses Diagnosis COVID-19- Primary documented in this encounter Additional Health Concerns Infection Onset Date Last Indicated Resolved Time Clearance-CoV Comment:Auto-resolved with negative COVID-19 PCR 02/13/2020 02/13/2020 02/13/2020 4:00 PM E DT CoV-Risk Comment:COVID-19 test pending Adm from home 02/13/2020 02/13/2020 02/14/2020 12:27 PM EDT documented as of this encounter Care Teams Business Unit Manager Relationship Specialty Start Date End Date Farnaz Aranda PA [address] [place] [address] PCP - General Unknown Provider Specialty 07/23/19 01/21/22 Barbara Monroy MD [address] [place] [address] PCP - General Internal Medicine 01/22/22 Linda Holloway MD [address] [place] [address], 2nd [place] [address] [email or web address] Historical LMR Provider 07/25/17 10/17/21 Kenisha Flores MD 238 [place] [address] [email or web address] Historical LMR Provider 07/25/17 10/17/21 Salena Cardenas MD [address] [address] [email or web address] Historical LMR Provider 07/25/17 10/17/21 Shay Dao MD 41 [place] [address] Historical LMR Provider 07/25/17 10/17/21 Casey Lofton MD Gastroenterology 02/14/20 documented as of this encounter Additional Source Comments The information contained in this document represents components of the legal health record. It is not the complete legal health record.[facility]
--- OUTSIDE RECORDS SUMMARY | 2025-08-13 11:50 | XMS_ITS | Encounter Summary ---
Author Organization [facility] Address [address] [place] [address] Phone Care Team Providers Care Corporate Bond Trader Name Role Phone Linda Holloway MD Unavailable [phone] Kenisha Flores MD Unavailable + Salena Cardenas MD Unavailable [phone] Shay Dao MD Unavailable [phone] Farnaz Aradna Primary Care Provider [phone] Casey Lofton MD Unavailable Unavailabl e Barbara Monroy MD Primary Care Provider [phone] Encounter Details Date Type Department Care Team (Latest Contact Info) Description 02/29/2020 Transcribe Orders [facility] Phleb Desiree [address] [place] [address] Farnaz Aranda PA 15 [place] [address] [email or web address] Leukocytosis, unspecified type (Primary Dx) Social History [...] EDT) WBC 11.88(H) 4.00 - 11.00 K/uL [facility] Comment:Note Reference Range updates to all CBC and Differential results. RBC 4.45 3.72 - 5.30 M/uL [facility] HGB 12.8 11.4 - 15.9 g/dL [facility] Comment:Note updated Referen ce Ranges for all CBC and Differential results. HCT 38.6 34.2 - 46.8 % [facility] PLT 392 140 - 430 K/uL [facility] MCV 86.7 78.0 - 97.0 fL [facility] MCH 28.8 25.0 - 33.0 pg [facility] MCHC 33.2 32.0 - 36.0 g/dL [facility] RDW 13.6 11.0 - 16.0 % [facility] MPV 9.4 8.4 - 12.8 fl [facility] NRBC 0.00 0 /100 WBCs [facility] ABSOLUTE NRBC 0.00 0 K/uL [facility] DIFF METHOD Auto [facility] NEUTS 71.4 43.0 - 75.0 % [facility] LYMPHS 21.2 18.2 - 47.4 % [facility] MONOS 5.0 4.00 - 11.00 % [facility] EOS 1.2 0.0 - 8.0 % [facility] BASOS 0.8 0.0 - 2.0 % [facility] Granulocytes, immature (%) 0.4 0.0 - 0.9 % [facility] ABSOLUTE NEUTS 8.48(H) 1.80 - 7.70 K/uL [facility] ABSOLUTE LYMPHS 2.52 1.00 - 3.10 K/uL [facility] ABSOLUTE MONOS 0.59 0.20 - 0.80 K/uL [facility] ABSOLUTE EOS 0.14 0.00 - 0.80 K/uL [facility] ABSOLUTE BASOS 0.10(H) 0.00 - 0.09 K/uL [facility] Granulocytes, immature 0.05 0.00 - 0.05 K/uL [facility] Blood 02/29/2020 8:46 AM EDT 02/29/2020 8:48 AM EDT us Farnaz [facility] LAB BLOOD BKR ORDERABLES Final Result [facility] [address] [place] [address] documented in this encounter Visit Diagnoses Diagnosis Leukocytosis, unspecified type- Primary documented in this encounter Care Teams Corporate Bond Trader Relationship Specialty Start Date End Date Farnaz Aranda PA [address] [place] [address] [email or web address] PCP - General Unknown Provider Specialty 07/23/19 01/21/22 Barbara Monroy MD [address] [place] [address] PCP - General Internal Medicine 01/22/22 Linda Holloway MD [address] [place] [address] Historical LMR Provider 07/25/17 10/17/21 Kenisha Flores MD [address] [place] [address] [email or web address] Historical LMR Provider 07/25/17 10/17/21 Salena Cardenas MD [address] [address] [email or web address] Historical LMR Provider 07/25/17 10/17/21 Shay Dao MD 41 [place] [address] Historical LMR Provider 07/25/17 10/17/21 Casey Lofton MD Gastroenterology 02/14/20 documented as of this encounter Additional Source Comments The information contained in this document represents components of the legal health record. It is not the complete legal health record.[facility]
--- OUTSIDE RECORDS SUMMARY | 2025-08-13 11:50 | XMS_ITS | Encounter Summary ---
Author Organization [facility] Address [address] [place] [address] Phone Care Team Providers Care Dispatch Supervisor Name Role Phone Casey Lofton MD Unavailable [facility] e Barbara Monroy MD Primary Care Provider [phone] Encounter Details Date Type Department Care Team (Late st Contact Info) Description 08/17/2022 Procedure Pass [facility], Ct Scan - [address] [address] Social History Tobacco Use Types Packs/Day Years [...] on filedocumented in this encounter Care Teams Dispatch Supervisor Relationship Specialty Start Date End Date Barbara Monroy MD [address] [place] [address] [phone] [email or web address] PCP - General Internal Medicine 01/22/22 Casey Lofton MD Gastroenterology 02/14/20 documented as of this encounter Additional Source Comments The information contained in this document represents components of the legal health record. It is not the complete legal health record.[facility]
[2025-08-13 13:44] LABS: Albumin Level 4.5 g/dL (3.5-5.0); Alkaline Phosphatase 106 U/L (39-117); Anion Gap 14 (12-20); Aspartate Amino Transferase 26 U/L (5-31); Blood Urea Nitrogen 13 mg/dL (9-16); Calcium 10.2 mg/dL (8.4-10.2); Carbon Dioxide 26 mmol/L (22-29); Chloride 103 mmol/L (96-108); Cholesterol 212 mg/dL (<200); Estimated Glomerular Filt Rate > 60; HDL Cholesterol 47 mg/dL (>40); Potassium 3.8 mmol/L (3.3-5.1); Sodium 139 mmol/L (135-145); Total Protein 7.3 g/dL (6.5-8.0); Triglycerides 266 mg/dL (<150)
[2025-08-13 13:56] LABS: Alanine Aminotransferase 27 U/L (0-31)
== END 2025-08-13 09:07 | disposition home or self-care (01) ==
LOC: HO.WFDLDS 09:06
PROVIDERS: PCP Nurse Practitioner Family; Visit Provider Nurse Practitioner Family
DX: R73.03 Prediabetes (principal); I10 Essential (primary) hypertension; M06.9 Rheumatoid arthritis, unspecified; E78.5 Hyperlipidemia, unspecified; E66.9 Obesity, unspecified; J30.2 Other seasonal allergic rhinitis; J45.20 Mild intermittent asthma, uncomplicated; R06.09 Other forms of dyspnea; E78.2 Mixed hyperlipidemia; N39.3 Stress incontinence (female) (male); M05.9 Rheumatoid arthritis with rheumatoid factor, unspecified; Z80.8 Family history of malignant neoplasm of other organs or systems; Z68.35 Body mass index [BMI] 35.0-35.9, adult; Z28.21 Immunization not carried out because of patient refusal
CPT/HCPCS: 36415; 80053; 80061; 83036; 96160; 99212

== ENCOUNTER 2025-08-13 09:06 | Outpatient (AMB) | payer MEDICARE, OTHER, SELFPAY ==
--- NOTE | 2025-08-13 09:13 | A.OFFPC_ITS ---
Vital Signs 08/13/25 09:19 Height 5 ft 2.5 in Weight 198 lb BMI 35.6 BP 138/74 Blood Pressure Location Rt brachial Position Sitting Respiration 13 Pulse 72 Pulse Source Pulse Oximeter Temp 97.2 F Temp Source Oral Pulse Oximetry (%) 99 Oxygen Delivery Method Room Air Intake Visit Reasons: 6 mo 30 min routine fu labs 1 week before Intake Note: 6 Months follow up. Telephone Appointment Clerk Required: No Allergies azithromycin Allergy (Severe, Verified 08/13/25 09:15) Facial Swelling sulfamethoxazole (From Bactrim) Allergy (Severe, Verified 08/13/25 09:15) Gastrointestinal Upset trimethoprim (From Bactrim) Allergy (Severe, Verified 08/13/25 09:15) Gastrointestinal Upset Medication List - Last Reconciled 08/13/25 by Angely Sanders CINDER PIT CRANE OPERATOR- albuterol sulfate 90 mcg/actuation 2 inhalations inhalation Q6H PRN amlodipine 5 mg PO DAILY budesonide-formoterol 80-4.5 mcg/actuation 1 puff PO BID cholecalciferol (vitamin D3) 50 mcg PO DAILY folic acid 1 mg PO DAILY losartan 100 mg PO DAILY methotrexate sodium mg PO mirabegron ER (Myrbetriq) 50 mg PO DAILY montelukast 10 mg PO DAILY omeprazole 20 mg PO DAILY ondansetron HCl 4 mg PO Q8H PRN 3 days Tobacco use date assessed: 08/13/25 Fall risk assessment: No Falls in past year Last assessed Fall Risk: 08/13/25 Dental Screening Dental Screen Date: 08/13/25 Did you have a dental visit in the last 12 months?: Yes Did you have a dental problem in the last 6 months where you did not have access to dental care?: No Was dental information given to patient?: Patient has dentist HPI HPI Comments History of Present Illness Details 70 y/o F with HTN, GERD, Asthma, Vitamin D def, rheumatoid arthritis, OA, migraines w/o aura, seasonal allergies, osteopenia, obesity, cervical spondylarthritis, urinary incont, vasovoagal syncope SurgHx: hx of heat ablation for heavy menstrual bleeding age 49, breast bx, R shoulder surgery, d&c FHx: dtr age 40 murdered; Dad age 78, mom 80 CVD, Siblings w/ DM. 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 PAP aged out Vaccines: PPSV 2015, declined flu, TDap 2024 [place] of Care: Rheum Dr Montemayor Optho Uro Optho wears glasses History of Present Illness The patient is a 70-year-old female presenting for a routine complex disease management visit. Asthma: - The patient has a history of asthma, f or which she uses albuterol as needed and a daily controller inhaler, which is a generic budesonide-formoterol taken twice daily. - She reports that some days her breathi ng is better than others. - She experiences dyspnea on exertion, p articularly when walking fast. - In June, she had a viral illness with a persistent cough that lasted for over three weeks. - She has a history of a prior stress te st that was stopped after four minutes due to trouble breathing and a hypertensive crisis. - She also had prior pulmonary function testing (spirometry), which was reportedly normal. 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 Hypertension: - The patient has a history of hypertens ion, managed with losartan and amlodipine. - She reports being adherent to her medi cation regimen. - She notes that her blood pressure elev ates with stress, particularly relating to difficult family situations. Rheumatoid Arthritis: - The patient's rheumatoid arthritis is managed by a french folder with methotrexate, folic acid, and infusions. - She is not currently taking any oral s teroids such as prednisone. - Recent labs from her french folder sh owed that her kidney function is fine. Urinary Incontinence: - The patient has urinary incontinence a nd was started on Myrbetriq by urology in June. - She reports that the medication has re duced her nocturia, though she still experiences incontinence with activity. - She notes an inability to provide a cl sally-catch urine sample due to urgency. - She has an upcoming ultrasound and cys toscopy scheduled with her urologist for further evaluation. Prediabetes/HLD - The patient has prediabetes, with an A 1c of 6.0% in December, which has now increased to 6.3% as of today's visit. - She reports drinking tea with sugar an d occasionally consuming soda when dining out. - Due for repeat labs. To be done today after visit Obesity: - The patient has obesity with a BMI of 35.6. Seasonal Allergies: - The patient takes Montelukast for seas onal allergies. - She has significant issues with sinus drainage and post-nasal drip, which causes her to choke. - She has tried a Neti pot in the past w ith a negative experience and uses Flonase intermittently. - She currently uses citrus essential oi ls at night to help with her sinuses. History of Breast Lump R: - The patient has a history of a breast lump found many years ago. - It was visible on a prior CT scan with contrast but not on mammograms or ultrasounds. - A subsequent biopsy was negative for m alignancy. - Her most recent mammogram in April was normal. Past Medical History - Asthma, treated with albuterol, Symbic ort, and a generic budesonide-formoterol inhaler. - Hypertension, treated with losartan an d amlodipine. - Rheumatoid arthritis, managed with met hotrexate, folic acid, and infusions. - Urinary incontinence, treated with Myr betriq. - Gastroesophageal reflux disease, treat ed with omeprazole. - Seasonal allergies, treated with monte lukast. - Obesity with BMI 35.6. - Prediabetes. - History of benign breast lump, confirm ed by biopsy. - Past Procedures: History of pulmonary function tests, cardiac stress test, endoscopy, and breast biopsy. Review of Systems - Constitutional: Reports feeling persis tently cold. - Psychiatric: Reports significant stres s and sadness related to a family member's health crisis. - Respiratory: Reports dyspnea on exerti on, especially when walking fast. - HEENT: Reports sinus drainage causing choking and a sensation of blocked ears. - Cardiovascular: Reports sensation of b lood pressure rising with stress. - Genitourinary: Reports nocturia, which has improved with medication, but cont inued stress incontinence with activity. Physical Exam General: Well developed, well nourished, in no acute distress. Appears stated age. Blood pressure recorded at 138/74. Head: Normocephalic, atraumatic. Eyes: Pupils are equal, round and reactive to light and accommodation. Conjunctivae are clear. Vision grossly normal. TM intact bilat, mild congestion on L, fluid bubbles noted bilat Lungs: Clear to auscultation bilaterally. No rales, rhonchi or wheeze noted. Good air flow in all beck. Heart: Regular rate and rhythm. No murmurs, click, rubs or gallops are noted. Musculoskeletal: Joints are nontender, without swelling, redness, or effusions. Pulses: Peripheral pulses are equal and palpable bilaterally. Extremities: No clubbing, cyanosis nor edema is noted. Psych: Mood and affect appropriate. Results - Labs: Ognmq-al-eoed hemoglobin A1c is 6.3%, up from 6.0% in December. - Prior Imaging: A mammogram performed april was normal. - Prior Diagnostics: Past spirometry res ults were reportedly normal. - Prior Diagnostics: A previous cardiac stress test was stopped after 4 minutes due to dyspnea and a hypertensive crisis. - Pending diagnostics: Labs were drawn t britt. Medical Decision Making The patient is a 70-year-old female with multiple chronic conditions here for a routine management visit. Her primary concerning symptom is persistent dyspnea on exertion, which is not improving with her current asthma regimen and aligns with a previously aborted cardiopulmonary stress test due to pulmonary limitation and a hypertensive crisis. Given the lack of improvement and her history of potential occupational lung exposure, further investigation is warranted to differentiate between poorly controlled asthma and other etiologies such as interstitial changes. A comprehensive evaluation will include both structural imaging and functional testing. Therefore, a CT of the chest without contrast and a cardiopulmonary stress test have been ordered to assess for anatomical abnormalities and to quantify her functional capacity. Her prediabetes has worsened, with her A1c increasing from 6.0% to 6.3%. The importance of diet and moderation was reinforced to prevent progression to overt diabetes mellitus. Her hypertension appears stable on her current regimen, although she notes significant fluctuations with psychosocial stress related to a family health crisis, which was acknowledged and discussed. Management of her other chronic conditions, including rheumatoid arthritis and urinary incontinence, will continue under the care of her respective specialists. A follow-up will be arranged after her diagnostic tests are completed, and she will schedule her annual physical for six months from now. Plan 1. Dyspnea On Exertion / Asthma - The patient's dyspnea on exertion is n ot well-controlled on her current daily inhaler and is not improving. - To further evaluate the etiology, whic h may include underlying lung damage from past exposures, a CT of the chest without contrast will be ordered to assess for structural abnormalities like scarring or inflammation. - A cardiopulmonary stress test will als o be ordered to evaluate both heart and lung function during exertion. - Follow-up will be scheduled to discuss the results of these tests. 2. Prediabetes - The patient's hemoglobin A1c has incre ased from 6.0% to 6.3%. - The patient was counseled on the impor tance of dietary choices to prevent progression to type 2 diabetes. - Patient is due for labs, which were or dered to be drawn today. 3. Hypertension - Continue current medications, losartan and amlodipine, as the patient is adherent and her blood pressure was 138/74 mmHg today. - Acknowledged the impact of psychosocia l stress on her blood pressure. 4. Urinary Incontinence - The patient is under the care of urokaylynn waterman and reports some improvement in nocturia with Myrbetriq. - She has an upcoming ultrasound and cys toscopy scheduled for further evaluation. - Defer further management to urology. 5. Health Maintenance - The patient will have routine labs dra connor today. - Patient was advised to schedule her ne xt annual exam for six months from now. - The patient declined a flu shot today. Patient Instructions - Two new tests have been ordered for yo u: a CT scan of your chest and a cardiopulmonary stress test. - Please schedule these tests at your co [facility]. - If you do not receive a call to [facility] these tests within two weeks, please send our office a message through the patient portal to check on the status. - Continue taking all your current medic ations as prescribed by your doctors. - We discussed the importance of watchin g your diet and sugar intake to keep your prediabetes from getting worse. - Please get your blood work done today before you leave. - Please schedule your next annual check -up for six months from now. - Our office will arrange a follow-up ap pointment after you have completed your tests. Consent The rationale for ordering a CT scan of the chest and a cardiopulmonary stress test was discussed with the patient. It was explained that these tests would help evaluate the structure of her lungs and her functional capacity during exertion to better understand her ongoing dyspnea. The patient understood the information provided and gave verbal agreement to proceed with ordering the tests. Patient was informed and verbally consented to the use of an ambient scribe for clinic note documentation during this visit. Total time spent caring for the patient today was 45 minutes. This includes time spent before the visit reviewing the chart, time spent during the visit, and time spent after the visit on documentation, reviewing laboratory results, diagnostic imaging, medications, performing a medically necessary evaluation, counseling on diagnoses, care coordination, ordering appropriate tests, ordering appropriate medications, review of tests performed by other providers, reporting test results with the patient, communication with other healthcare providers. [facility] Medical History History of echocardiogram (~2019) History of screening mammography (~2022) GERD (gastroesophageal reflux disease) Arthritis HTN (hypertension) Sinusitis Asthma Surgical History History of esophagogastroduodenoscopy (EGD) (~08/2020) History of colonoscopy (~03/2023) H/O shoulder surgery Family History Sister HTN (hypertension) Diabetes Brother HTN (hypertension) Diabetes Maternal Grandfather Diabetes Brother Diabetes Social History Household Members: Family and Children Both parents involved: No Caregiver staying overnight: No Housing: House Are you a primary adult day care worker to a significant other at home: No Do you presently have visiting nurse or other home services: No 75 years or older and lives alone: No Alcohol intake: current Alcohol intake frequency: a few times a month Patient Tobacco Use Status: Never used Tobacco e-Cigarette/Vaping Use: Never Used Second Hand Smoke Exposure: No service: No Current occupational status: retired Cognitive needs: No Hearing needs: No Vision needs: Yes (wear glasses) Questionnaire Thrive Questionnaire Date Thrive assessed: 12/27/24 JAMAAL-7 AMB Questionnaire JAMAAL-7 Date JAMAAL - 7 assessed: 12/27/24 Source: Developed by Drs. Leeroy Bullock, Aura BHossein Orlando and colleagues, with an educational susi from [employer]. ACT Questionnaire In the past 4 weeks, how much of the time did your asthma keep you from getting as much done at work, school or at home?: Some of the time During the past 4 weeks, how often have you had shortness of breath?: More than once a day During the past 4 weeks, how often did your asthma symptoms wake you up at night or earlier than usual in the morning?: 4 or more nights a week During the past 4 weeks, how often have you had to use your rescue inhaler or nebulizer medication?: Once a week or less How would you rate your asthma control during the past 4 weeks?: Poorly controlled ACT Interpretation: Positive ACT Branch: Follow up visit scheduled Score: 11 Physical exam (Primary Care) Vital Signs: Last Vital Signs Temp 97.2 F 08/13/25 09:19 Pulse 72 08/13/25 09:19 Resp 13 08/13/25 09:19 BP 138/74 08/13/25 09:19 Pulse Ox 99 08/13/25 09:19 Oxygen Delivery Method Room Air 08/13/25 09:19 BMI result Body Mass Index 35.6 Tobacco/Smoking Status: Tobacco use Status Tobacco use date assessed 08/13/25 08/13/25 09:17 Patient Tobacco Use Status Never used Tobacco 08/13/25 09:14 e-Cigarette/Vaping Use Never Used 08/13/25 09:14 Thrive Assessment: Date of Thrive Assessment Date Thrive assessed 12/27/24 08/13/25 09:14 Results AMB Hemoglobin A1c AMB Hemoglobin A1c 6.3 % Last Edit by Jorge Luis Wills MA on 08/13/25 09:43 Results Reviewed Results Reviewed: Laboratory Last Values Hgb A1c (Clinic) 6.3 % (4.0-6.0) H 08/13/25 09:14 Coding Level of Care Code Est Pt Level 5 (64794) Complex EM visit Add On G2211 Diagnoses Prediabetes R73.03 Influenza vaccination declined by patient Z28.21 Family history of thyroid cancer Z80.8 Mild intermittent asthma in adult without complication J45.20 UP (dyspnea on exertion) R06.09 Primary hypertension I10 Hypertension type: primary hypertension Mixed hyperlipidemia E78.2 Hyperlipidemia type: mixed hyperlipidemia Urine, incontinence, stress female N39.3 Rheumatoid arthritis with positive rheumatoid factor, involving unspecified site M05.9 Rheumatoid arthritis location: unspecified site Rheumatoid factor presence: with rheumatoid factor Additional Codes Asthma Control Questionnaire - ACT Interpretation: Positive ([id number]) Assessment & Plan Assessment & Plan (1) Prediabetes: Code(s): R73.03 - Prediabetes Category: Medical (2) Influenza vaccination declined by patient: Onset Date: ~08/13/25 Code(s): Z28.21 - Immunization not carried out because of patient refusal Category: Medical (3) Family history of thyroid cancer: Comment: Granddtr age 28 Dx 2024 Code(s): Z80.8 - Family history of malignant neoplasm of other organs or systems Category: Medical (4) Mild intermittent asthma in adult without complication: Code(s): J45.20 - Mild intermittent asthma, uncomplicated Category: Medical (5) UP (dyspnea on exertion): Code(s): R06.09 - Other forms of dyspnea Category: Medical (6) HTN (hypertension): Code(s): I10 - Essential (primary) hypertension Category: Medical Qualifiers: Hypertension type: primary hypertension Qualified Code(s): I10 - Essential (primary) hypertension (7) HLD (hyperlipidemia): Code(s): E78.5 - Hyperlipidemia, unspecified Category: Medical Qualifiers: Hyperlipidemia type: mixed hyperlipidemia Qualified Code(s): E78.2 - Mixed hyperlipidemia (8) Urine, incontinence, stress female: Code(s): N39.3 - Stress incontinence (female) (male) Category: Medical (9) Rheumatoid arthritis: Code(s): M06.9 - Rheumatoid arthritis, unspecified Category: Medical Qualifiers: Rheumatoid arthritis location: unspecified site Rheumatoid factor presence: with rheumatoid factor Qualified Code(s): M05.9 - Rheumatoid arthritis with rheumatoid factor, unspecified Plan , Orders: Orders AMB Hemoglobin A1c Today R73.03 - Prediabetes, Z13.9 - Encounter for screening, unspecified CA cardiopulmonary stress test Today J45.20 - Mild intermittent asthma, uncomplicated, R06.09 - Other forms of dyspnea CT chest wo IV con Today J45.20 - Mild intermittent asthma, uncomplicated, R06.09 - Other forms of dyspnea
[2025-08-13 09:19] VITALS: BP 138/74; PULSE 72; RESP 13; TEMP 36.2; O2SAT 99; BMI 35.6
== END 2025-08-13 10:16 | disposition home or self-care (01) ==
LOC: HO.HMCFM 09:06
PROVIDERS: PCP Nurse Practitioner Family; Visit Provider Nurse Practitioner Family
DX: R73.03 Prediabetes (principal); Z28.21 Immunization not carried out because of patient refusal; Z80.8 Family history of malignant neoplasm of other organs or systems; J45.20 Mild intermittent asthma, uncomplicated; R06.09 Other forms of dyspnea; I10 Essential (primary) hypertension; E78.2 Mixed hyperlipidemia; N39.3 Stress incontinence (female) (male); M05.9 Rheumatoid arthritis with rheumatoid factor, unspecified; Z13.9 Encounter for screening, unspecified

== ENCOUNTER 2025-08-23 10:24 | Outpatient (REF) | payer MEDICARE, OTHER, SELFPAY ==
--- NOTE | ~2025-08-23 | US_ITS ---
CLINICAL HISTORY: R39.15 - Urgency of urination US Renal Comparison: None provided Findings: Right kidney measures 10.1 cm length. Left kidney measures 10.8 cm length. No hydronephrosis of either imaged kidney. Portions of the kidneys obscured by side of the artifacts. Mild increase prominence of the renal hilum may be accentuated by technique. Mild increased echogenicity of the medical renal disease also considered. Urinary bladder prevoid volume 572 mL. Postvoid volume 25 mL. Bilateral ureteral jets noted by the technologist. IMPRESSION: 1. No hydronephrosis. 2. No significant postvoid residual in the imaged urinary bladder. This document has been electronically signed by: Brandon Soto MD on 08/24/2025 11:05:07
== END 2025-08-23 10:25 | disposition home or self-care (01) ==
LOC: HO.HMGCX 10:24
PROVIDERS: PCP Nurse Practitioner Family; Visit Provider Urology
DX: R39.15 Urgency of urination (principal); N39.3 Stress incontinence (female) (male)
CPT/HCPCS: 76770

== ENCOUNTER → 2025-08-23 10:28 | Outpatient (BNV) | payer MEDICARE, OTHER, SELFPAY | PROVIDERS: PCP Nurse Practitioner Family; Visit Provider Radiology Neuroradiology | DX: R39.15 Urgency of urination (principal) | CPT/HCPCS: 76770 ==

== ENCOUNTER 2025-08-29 09:23 | Outpatient (AMB) | payer MEDICARE, OTHER, SELFPAY ==
--- NOTE | 2025-08-29 09:41 | MHC.OFFVIS ---
Intake Visit Reasons: Cysto/US/Pelvic Exam Intake Note: Patient is present for a cysto/US/Pelvic exam 08/23 Retroperitoneal US Urology Medication:NONE Antibiotic Allergy:AZITHROMYCIN,BACTRIUM,SULFA Blood Thinner:NONE PVR:0ml Runner Out Required: No Allergies azithromycin Allergy (Severe, Verified 08/29/25 09:41) Facial Swelling sulfamethoxazole (From Bactrim) Allergy (Severe, Verified 08/29/25 09:41) Gastrointestinal Upset trimethoprim (From Bactrim) Allergy (Severe, Verified 08/29/25 09:41) Gastrointestinal Upset Medication List - Last Reconciled 08/29/25 by Jessica Rico MD albuterol sulfate 90 mcg/actuation 2 inhalations inhalation Q6H PRN amlodipine 5 mg PO DAILY budesonide-formoterol 80-4.5 mcg/actuation 1 puff PO BID cholecalciferol (vitamin D3) 50 mcg PO DAILY folic acid 1 mg PO DAILY losartan 100 mg PO DAILY methotrexate sodium mg PO mirabegron ER (Myrbetriq) 50 mg PO DAILY montelukast 10 mg PO DAILY omeprazole 20 mg PO DAILY ondansetron HCl 4 mg PO Q8H PRN 3 days HPI Comments Details: 08/29/25--Bhavna is a 70-year-old female who presents with stress urinary incontinence as well as urinary urgency she was initially evaluated on 06/28/2025 she was started on Myrbetriq for her urge symptoms. She is here for office cystoscopy she had a renal ultrasound on 08/23/2025. 30 minutes spent in review of records pertaining to this visit and including [id number]-[id number] discussion with the patient and documentation of this visit. History of Present Illness The patient is a 70-year-old female presenting with stress urinary incontinence and urinary urgency. The urinary symptoms were initially evaluated on 06/28/25, and the patient was started on Myrbetriq for urge symptoms. The patient reports that the medication has helped reduce nocturnal awakenings, was getting up up to 3 times. The patient underwent a renal ultrasound on 08/23/25, which showed kidneys within normal limits and a post-void residual of 24 mL. A urinalysis conducted today was negative. The patient has a history of allergic rhinitis, which exacerbates coughing and sneezing, contributing to urinary leakage. The patient The patient has a history of four pregnancies, including one miscarriage, with large babies, >9 lbs. Results - Renal ultrasound: Kidneys within normal limits, post-void residual 24 mL - Urinalysis: Negative - Cystoscopy findings: No significant abnormalities, very minimal trabeculations noted. No suspicious bladder lesions visualized - pelvic examination the prolapse identified--the bladder was filled with over 200 mL during cystoscopy leakage noted with Valsalva Plan 1. Stress Urinary Incontinence/ISD - Discussed urethral bulking as a treatment option to help with stress urinary incontinence. - Schedule Bulkamid. I have discussed the risks of bulking injection to the proximal urethra to include but not limited to need to repeat the procedure, hematuria, and urgency. - Referral to pelvic floor physical therapy has been made, although there is a waiting list. 2. Urinary Urgency - Continue Myrbetriq for management of urinary urgency symptoms. 06/28/25-- The patient is a 69-year-old female presenting with stress urinary incontinence. The condition has been ongoing for approximately ten years, with symptoms triggered by actions such as coughing, sneezing, and lifting heavy objects. The patient reports that the leakage is not substantial but occurs frequently enough to be bothersome. The patient has not previously sought treatment for this condition until her new primary care physician recommended a urological evaluation. She has not been on any medications for urinary incontinence prior to this visit. The patient has a history of allergic rhinitis, for which she takes Zyrtec and uses a nasal spray as needed. She experiences year-round symptoms and has had recurrent ear infections in the past, which are managed with consistent use of nasal sprays. The patient has a history of osteoarthritis and receives infusions every other month for her condition. She also has a history of cervical ablation performed approximately 20 years ago due to heavy menstrual bleeding. Plan 1. Urinary Incontinence - Initiate Myrbetriq 50 mg for management of urinary urgency and frequency. - Order an ultrasound of the kidneys and bladder to rule out any anatomical abnormalities. - Refer to pelvic floor physical therapy for muscle strengthening exercises. - FU further evaluation pelvic exam and possible cystoscopy. 2. Allergic Rhinitis, Comorbitiy, pt has episodes of sneezing daily [facility], [facility] Medical History History of echocardiogram (~2019) History of screening mammography (~2022) GERD (gastroesophageal reflux disease) Arthritis HTN (hypertension) Sinusitis Asthma Surgical History History of esophagogastroduodenoscopy (EGD) (~08/2020) History of colonoscopy (~03/2023) H/O shoulder surgery Family History Sister HTN (hypertension) Diabetes Brother HTN (hypertension) Diabetes Maternal Grandfather Diabetes Brother Diabetes Social History Household Members: Family and Children Both parents involved: No Caregiver staying overnight: No Housing: House Are you a primary care aide to a significant other at home: No Do you presently have visiting nurse or other home services: No 75 years or older and lives alone: No Alcohol intake: current Alcohol intake frequency: a few times a month Patient Tobacco Use Status: Never used Tobacco e-Cigarette/Vaping Use: Never Used Second Hand Smoke Exposure: No service: No Current occupational status: retired Cognitive needs: No Hearing needs: No Vision needs: Yes (wear glasses) Review of Systems Const All systems reviewed & are unremarkable except as noted in HPI and below Reports no additional complaints Eyes Reports no additional complaints ENT Reports no additional complaints Card Reports no additional complaints Resp Reports no additional complaints GI Reports no additional complaints Reports as per HPI Musc Reports no additional complaints Skin/Breast Reports system reviewed and no additional complaints, except as documented Neuro Reports no additional complaints Psych Reports no additional complaints Endo Reports no additional complaints Chano/Lymph Reports no additional complaints Aller/Immun Reports no additional complaints Office Procedures Cystoscopy Consent Discussed risk and benefit or proposed procedure with the patient. Information consent for procedure given to the patient. Discussed technical aspects, risks, benefits and alternatives in full. Addressed all of the patient's questions and concerns regarding the procedure. The patient demonstrated knowledge and understanding. They wish to proceed with this procedure. Preparation The patient was prepped in the usual manner. A gluten settling tender was present and in the room. Genitalia was prepped with betadine solution in a sterile manner. Lidocaine Jelly 2% was placed into the urethra and 16Fr flexible Olympus cystoscope was inserted into the meatus after adequate lubrication. Procedure Time out per protocol performed. Speculum used as indicated for adequate visualization of urethra, the flexible cystoscope is passed transurethrally: The bladder was inspected in its entirety with utilization retroflexion displaying: Tumor(s): no suspicious bladder lesions visualized Trabeculation: Minimal Mucosal Erthema: Orifices: normal shape and position Urethra: mild patulous appearing Cystoscopy findings: No significant abnormalities, very minimal trabeculations noted. No suspicious bladder lesions visualized [id number] DISPOSABLE SCOPE URO-G FLEXIBLE SCOPE Procedure code (CPT) selection complete Office Meds lidocaine HCl 2 % mucosal jelly in applicator Performing Provider: Jessica Rico MD Performing Location: [facility] Administered by: Briana Dash RN on 08/29/25 10:03 Dose Route Admin Location Dispensed Lot Number Expiration Date NDC Director Report 10 mL intra-urethral 20 mL ciprofloxacin HCl 500 mg tablet Performing Provider: Jessica Rico MD Performing Location: [facility] Administered by: Briana Dash RN on 08/29/25 10:03 Dose Route Admin Location Dispensed Lot Number Expiration Date NDC Director Report 500 mg PO 1 tab phenazopyridine 200 mg tablet Performing Provider: Jessica Rico MD Performing Location: [facility] Administered by: Briana Dash RN on 08/29/25 10:03 Dose Route Admin Location Dispensed Lot Number Expiration Date NDC Director Report 200 mg PO 1 tab Results Reviewed Results Reviewed: Date of Service: 08/23/25 CLINICAL HISTORY: R39.15 - Urgency of urination US Renal Comparison: None provided Findings: Right kidney measures 10.1 cm length. Left kidney measures 10.8 cm length. No hydronephrosis of either imaged kidney. Portions of the kidneys obscured by side of the artifacts. Mild increase prominence of the renal hilum may be accentuated by technique. Mild increased echogenicity of the medical renal disease also considered. Urinary bladder prevoid volume 572 mL. Postvoid volume 25 mL. Bilateral ureteral jets noted by the technologist. IMPRESSION: 1. No hydronephrosis. 2. No significant postvoid residual in the imaged urinary bladder. 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 Stress Urinary Incontinence/ISD - Discussed urethral bulking as a treatment option to help with stress urinary incontinence. - Schedule Bulkamid. I have discussed the risks of bulking injection to the proximal urethra to include but not limited to need to repeat the procedure, hematuria, and urgency. - Referral to pelvic floor physical therapy has been made, although there is a waiting list. 2. Urinary Urgency - Continue Myrbetriq for management of urinary urgency symptoms. Orders: Orders AMB Cystoscopy Today N39.3 - Stress incontinence (female) (male), R39.15 - Urgency of urination Medications: Refilled mirabegron ER (Myrbetriq) 50 mg PO DAILY 90 tabs 3RF Patient Instructions: The patient had an opportunity to ask questions regarding treatment plan. The patient expressed understanding and agreement with the above treatment plan. The patient is aware they should contact our office by phone for worsening of their current condition or the appearance of new symptoms. Compliance is encouraged with any medications and followup testing that is ordered. It is a privilege to be allowed the opportunity to participate in the urologic care of your patient. If you have any questions or concerns regarding treatment for the above conditions please do not hesitate to contact me. The office telephone contact is [phone]. This note is constructed in part using voice recognition software. While every effort has been made to ensure accuracy real estate clerk errors may have been included. Yours sincerely, Jessica Rico MD Scribe Plan - Not visible on output: Patient was informed and verbally consented to the use of an ambient scribe for clinic note documentation during this visit. Coding Level of Care Code Est Pt Level 4 (68459) Diagnoses Urine, incontinence, stress female N39.3 Urinary urgency R39.15 Intrinsic sphincter deficiency (ISD) N36.42 Pelvic floor weakness in female N81.89 CPT Codes Cystoscopy - CPT: [id number] ([id number])
--- OUTSIDE RECORDS SUMMARY | 2025-08-29 12:17 | XMS_ITS | Encounter Summary ---
Author Organization [facility] Address [address] [place] [address] Phone Care Team Providers Care Rock Duster Name Role Phone Linda Holloway MD Unavailable [phone] Kenisha Flores MD Unavailable + Salena Cardenas MD Unavailable [phone] Shay Dao MD Unavailable [phone] Farnaz Aranda Primary Care Provider [phone] Casey Lofton MD Unavailable Unavailabl e Barbara Monroy MD Primary Care Provider Encounter Details Date Type Department Care Team (Late st Contact Info) Description 07/07/2020 Transcribe Orders [facility] [address] [place] [address] Farnaz Aranda PA [address] [place] [address] [email or web address] Social History Tobacco Use Types Packs/Day Years [...] on filedocumented in this encounter Care Teams Rock Duster Relationship Specialty Start Date End Date Farnaz Aranda PA [address] [place] [address] [email or web address] PCP - General Unknown Provider Specialty 07/23/19 01/21/22 Barbara Monroy MD 15 [place] [address] [email or web address] PCP - General Internal Medicine 01/22/22 Linda Holloway MD 15 [facility], [address] [place] [address] [email or web address] Historical LMR Provider 07/25/17 10/17/21 Kenisha Flores MD [address] [place] [address] [email or web address] Historical LMR Provider 07/25/17 10/17/21 Salena Cardenas MD [address] [address] [email or web address] Historical LMR Provider 07/25/17 10/17/21 Shay Dao MD [address] [place] [address] Historical LMR Provider 07/25/17 10/17/21 Casey Lofton MD Gastroenterology 02/14/20 documented as of this encounter Additional Source Comments The information contained in this document represents components of the legal health record. It is not the complete legal health record.[facility]
--- OUTSIDE RECORDS SUMMARY | 2025-08-29 12:17 | XMS_ITS | Encounter Summary ---
Author Organization [facility] Address [address] [place] [address] Phone Care Team Providers Care Paper Box Cutter Name Role Phone Casey Lofton MD Unavailable [facility] e Barbara Monroy MD Primary Care Provider [phone] Encounter Details Date Type Department Care Team (Late st Contact Info) Description 01/13/2023 Procedure Pass [facility], Ct Scan - [address] [address] Social History Tobacco Use Types Packs/Day Years [...] on filedocumented in this encounter Care Teams Paper Box Cutter Relationship Specialty Start Date End Date Barbara Monroy MD [address] [place] [address] [phone] [email or web address] PCP - General Internal Medicine 01/22/22 Casey Lofton MD Gastroenterology 02/14/20 documented as of this encounter Additional Source Comments The information contained in this document represents components of the legal health record. It is not the complete legal health record.[facility]
--- OUTSIDE RECORDS SUMMARY | 2025-08-29 12:17 | XMS_ITS | Encounter Summary ---
Author Organization [facility] Address [address] [place] [address] Phone Care Team Providers Care Guidance Services Coordinator Name Role Phone Linda Holloway MD Unavailable [phone] Kenisha Flores MD Unavailable + Salena Cardenas MD Unavailable [phone] Shay Dao MD Unavailable [phone] Farnaz Aranda Primary Care Provider [phone] Casey Lofton MD Unavailable Unavailabl e Barbara Monroy MD Primary Care Provider Encounter Details Date Type Department Care Team (Late st Contact Info) Description 04/10/2020 Procedure Pass [facility] Endoscopy Admitting Dept Virtual Department [address] [place] [address] Social History Tobacco Use Types Packs/Day Years [...] on filedocumented in this encounter Care Teams Guidance Services Coordinator Relationship Specialty Start Date End Date Farnaz Aranda PA 15 [place] [address] PCP - General Unknown Provider Specialty 07/23/19 01/21/22 Barbara Monroy MD 15 [place] [address] PCP - General Internal Medicine 01/22/22 Linda Holloway MD 15 [facility], 2nd [place] [address] Historical LMR Provider 07/25/17 10/17/21 Kenisha Flores MD [address] [place] [address] [email or web address] Historical LMR Provider 07/25/17 10/17/21 Salena Cardenas MD [address] [address] [email or web address] Historical LMR Provider 07/25/17 10/17/21 Shay Dao MD [address] [place] [address] Historical LMR Provider 07/25/17 10/17/21 Casey Lofton MD Gastroenterology 02/14/20 documented as of this encounter Additional Source Comments The information contained in this document represents components of the legal health record. It is not the complete legal health record.[facility]
--- OUTSIDE RECORDS SUMMARY | 2025-08-29 12:18 | XMS_ITS | Encounter Summary ---
Author Organization [facility] Address [address] [place] [address] Phone Care Team Providers Care Lump Room Supervisor Name Role Phone Linda Holloway MD Unavailable [phone] Kenisha Flores MD Unavailable + Salena Cardenas MD Unavailable [phone] Shay Dao MD Unavailable [phone] Farnaz Aranda Primary Care Provider [phone] Casey Lofton MD Unavailable Unavailabl e Barbara Monroy MD Primary Care Provider [phone] Encounter Details Date Type Department Care Team (Late st Contact Info) Description 07/15/2020 Procedure Pass [facility], Ct Scan - [address] [address] Social History Tobacco Use Types Packs/Day Years [...] on filedocumented in this encounter Care Teams Lump Room Supervisor Relationship Specialty Start Date End Date Farnaz Aranda PA 15 [place] [address] [email or web address] PCP - General Unknown Provider Specialty 07/23/19 01/21/22 Barbara Monroy MD 15 [place] [address] [email or web address] PCP - General Internal Medicine 01/22/22 Linda Holloway MD 15 [facility], [address] [place] [address] [email or web address] Historical LMR Provider 07/25/17 10/17/21 Kenisha Flores MD [address] [place] [address] [email or web address] Historical LMR Provider 07/25/17 10/17/21 Salena Cardenas MD [address] [address] [email or web address] Historical LMR Provider 07/25/17 10/17/21 Shay Dao MD [address] [place] [address] Historical LMR Provider 07/25/17 10/17/21 Casey Lofton MD Gastroenterology 02/14/20 documented as of this encounter Additional Source Comments The information contained in this document represents components of the legal health record. It is not the complete legal health record.[facility]
--- OUTSIDE RECORDS SUMMARY | 2025-08-29 12:18 | XMS_ITS | Encounter Summary ---
Author Organization [facility] Address [address] [place] [address] Phone Care Team Providers Care Automobile Body Repair Chief Name Role Phone Casey Lofton MD, Christine D MD Primary Care Provider [phone] Encounter Details Date Type Department Care Team (Late st Contact Info) Description 03/10/2023 Procedure Pass [facility] Endoscopy Admitting Dept Virtual Department 30 [place] [address] Social History Tobacco Use Types Packs/Day Years [...] on filedocumented in this encounter Care Teams Automobile Body Repair Chief Relationship Specialty Start Date End Date Barbara Monroy MD [address] [place] [address] [email or web address] PCP - General Internal Medicine 01/22/22 Casey Lofton MD Gastroenterology 02/14/20 documented as of this encounter Additional Source Comments The information contained in this document represents components of the legal health record. It is not the complete legal health record.[facility]
--- OUTSIDE RECORDS SUMMARY | 2025-08-29 12:18 | XMS_ITS | Encounter Summary ---
Author Organization [facility] Address [address] [place] [address] Phone Care Team Providers Care Apprentice Name Role Phone Linda Holloway MD Unavailable [phone] Kenisha Flores MD Unavailable + Salena Cardenas MD Unavailable [phone] Shay Dao MD Unavailable [phone] Farnaz Aranda Primary Care Provider [phone] Casey Lofton MD Un[facility] Barbara Monroy MD Primary Care Provider Reason for Referral * MRI/CAT Scan - Closed Specialty Diagnoses / Procedures Referred By Clarice thompson Referred To Contact Radiology Diagnoses Chronic cough Procedures CT Chest Farnaz Aranda PA Phone: tel: fax: [email or web address] Referral ID Status Reason Start Date Expiration Date Visits Re quested Visits Authorized [id number] Closed 07/15/2020 01/13/2021 1 1 Encounter Details Date Type Department Care Team (Late st Contact Info) Description 07/15/2020 Ancillary Orders [facility] Department [address] [place] [address] Farnaz Aranda PA 15 [place], [place] [phone] [email or web address] Social History Tobacco Use Types [...] Cough documented in this encounter Care Teams Apprentice Relationship Specialty Start Date End Date Farnaz Aranda PA [address] [place] [address] [email or web address] PCP - General Unknown Provider Specialty 07/23/19 01/21/22 [place] [address] PCP - General Internal Medicine 01/22/22 Linda Holloway MD 15 [facility], [address] [place] [address] [email or web address] Historical LMR Provider 07/25/17 10/17/21 Kenisha Flores MD [address] [place] [address] [email or web address] Historical LMR Provider 07/25/17 10/17/21 Salena Cardenas MD [address] [address] [email or web address] Historical LMR Provider 07/25/17 10/17/21 Shay Dao MD [address] [place] [address] Historical LMR Provider 07/25/17 10/17/21 Casey Lofton MD Gastroenterology 02/14/20 documented as of this encounter Additional Source Comments The information contained in this document represents components of the legal health record. It is not the complete legal health record.[facility]
--- OUTSIDE RECORDS SUMMARY | 2025-08-29 12:18 | XMS_ITS | Encounter Summary ---
Author Organization [facility] Address [address] [place] [address] Phone Care Team Providers Care Mushroom Picker Name Role Phone Casey Lofton MD Unavailable UnavailBarbara Espinosa MD Primary Care Provider [phone] Encounter Details Date Type Department Care Team (Late st Contact Info) Description 02/01/2023 Ancillary Orders [facility], [address] [address] Barbara Monroy MD [address] [place] [address] [email or web address] Abnormal finding on mammography Social History Tobacco [...] mammography documented in this encounter Care Teams Mushroom Picker Relationship Specialty Start Date End Date Barbara Monroy MD [address] [place] [phone] [email or web address] PCP - General Internal Medicine 01/22/22 Casey Lofton MD Gastroenterology 02/14/20 documented as of this encounter Additional Source Comments The information contained in this document represents components of the legal health record. It is not the complete legal health record.[facility]
--- OUTSIDE RECORDS SUMMARY | 2025-08-29 12:18 | XMS_ITS | Encounter Summary ---
Author Organization [facility] Address [address] [place] [address] Phone Care Team Providers Care Road Builder Name Role Phone Casey Lofton MD Unavailable [facility] e Barbara Monroy MD Primary Care Provider [phone] Encounter Details Date Type Department Care Team (Late st Contact Info) Description 01/14/2023 Procedure Pass [facility], [address] [address] Social History Tobacco Use Types Packs/Day Years [...] on filedocumented in this encounter Care Teams Road Builder Relationship Specialty Start Date End Date Barbara Monroy MD [address] [place] [address] [phone] [email or web address] PCP - General Internal Medicine 01/22/22 Casey Lofton MD Gastroenterology 02/14/20 documented as of this encounter Additional Source Comments The information contained in this document represents components of the legal health record. It is not the complete legal health record.[facility]
--- OUTSIDE RECORDS SUMMARY | 2025-08-29 12:19 | XMS_ITS | Encounter Summary ---
Author Organization [facility] Address [address] [place] [address] Phone Care Team Providers Care Newspaper Illustrator Name Role Phone Linda Holloway MD Unavailable [phone] Kenisha Flores MD Unavailable + Salena Cardenas MD Unavailable +[phone] Shay Dao MD Unavailable +[phone] Farnaz Aranda Primary Care Provider +[phone] Casey Lofton MD Unavailable Unavailabl e Barbara Monroy MD Primary Care Provider [phone] Encounter Details Date Type Department Care Team (Latest Contact Info) Description 07/15/2020 Transcribe Orders [facility] Specimen Processing 30 [place] [address] Farnaz Aranda PA 15 [place] [address] [email or web address] Elevated glucose (Primary Dx) Social History [...] glucose documented in this encounter Care Teams Newspaper Illustrator Relationship Specialty Start Date End Date Farnaz Aranda PA [address] [place] [address] [email or web address] PCP - General Unknown Provider Specialty 07/23/19 01/21/22 Barbara Monroy MD 15 [place] [address] [email or web address] PCP - General Internal Medicine 01/22/22 Linda Holloway MD [address] [address] [email or web address] Historical LMR Provider 07/25/17 10/17/21 Kenisha Flores MD [address] [place] [address] [email or web address] Historical LMR Provider 07/25/17 10/17/21 Salena Cardenas MD [address] [address] [email or web address] Historical LMR Provider 07/25/17 10/17/21 Shay Dao MD [address] [place] [address] Historical LMR Provider 07/25/17 10/17/21 Casey Lofton MD Gastroenterology 02/14/20 documented as of this encounter Additional Source Comments The information contained in this document represents components of the legal health record. It is not the complete legal health record.[facility]
--- OUTSIDE RECORDS SUMMARY | 2025-08-29 12:19 | XMS_ITS | Encounter Summary ---
Author Organization [facility] Address [address] [place] [address] Phone Care Team Providers Care Solar Mechanical Engineer Name Role Phone Linda Holloway MD Unavailable +[phone] Kenisha Flores MD Unavailable + Salena Cardenas MD Unavailable +[phone] Shay Dao MD Unavailable +[phone] Farnaz Aranda Primary Care Provider +[phone] Casey Lofton MD Unavailable Unavailabl e Barbara Monroy MD Primary Care Provider Encounter Details Date Type Department Care Team (Late st Contact Info) Description 07/18/2020 Ancillary Orders Virtual Department 30 [place] [address] Franaz Aranda PA [address] [place] [address] [email or web address] Breast screening Social History Tobacco Use Types [...] unspecified documented in this encounter Care Teams Solar Mechanical Engineer Relationship Specialty Start Date End Date Farnaz Aranda PA [address] [place] [address] [email or web address] PCP - General Unknown Provider Specialty 07/23/19 01/21/22 Barbara Monroy MD 15 [place] [address] [email or web address] PCP - General Internal Medicine 01/22/22 Linda Holloway MD [address] [address] [email or web address] Historical LMR Provider 07/25/17 10/17/21 Kenisha Flores MD [address] [place] [address] [email or web address] Historical LMR Provider 07/25/17 10/17/21 Salena Cardenas MD [address] [address] [email or web address] Historical LMR Provider 07/25/17 10/17/21 Shay Dao MD [address] [place] [address] Historical LMR Provider 07/25/17 10/17/21 Casey Lofton MD Gastroenterology 5/7/20 documented as of this encounter Additional Source Comments The information contained in this document represents components of the legal health record. It is not the complete legal health record.[facility]
--- OUTSIDE RECORDS SUMMARY | 2025-08-29 12:20 | XMS_ITS | Encounter Summary ---
Author Organization [facility] Address [address] [place] [address] Phone Care Team Providers Care Education Instructor Name Role Phone Linda Holloway MD Unavailable +[phone] Kenisha Flores MD Unavailable + Salena Cardenas MD Unavailable +[phone] Shay Dao MD Unavailable +[phone] Farnaz Aranda Primary Care Provider +[phone] Casey Lofton MD [facility]available [facility] Barbara Monroy MD Primary Care Provider Reason for Referral * MRI/CAT Scan - Closed Specialty Diagnoses / Procedures Referred By Clarice thompson Referred To Contact Radiology Diagnoses Chronic sinusitis, unspecified location Cervical lymphadenopathy Procedures CT Neck Farnaz Aranda PA Phone: tel: fax: mailto:[email or web address] Referral ID Status Reason Start Date Expiration Date Visits Re quested Visits Authorized [id number] Closed 09/24/2020 09/24/2021 1 1 * MRI/CAT Scan - Closed Specialty Diagnoses / Procedures Referred By Clarice thompson Referred To Contact Radiology Diagnoses Chronic sinusitis, unspecified location Cervical lymphadenopathy Procedures CT Face Farnaz Aranda PA Phone: tel: fax: mailto:[email or web address] Referral ID Status Reason Start Date Expiration Date Visits Re quested Visits Authorized [id number] Closed 09/24/2020 09/24/2021 1 1 Encounter Details Date Type Department Care Team (Latest Contact Info) Description 09/24/2020 Transcribe Orders Virtual Department 30 [place] [address] Farnaz Aranda PA [address] [place] [address] [email or web address] Chronic sinusitis, unspecified location (Primary Dx); Cervical [...] lymphadenopathy. 2.Cervical spondylosis as above. Farnaz LOGAN IMJayy CT XSPECIALTY ORDERABLES Fi nal Result * [...] Mild left sphenoid sinus disease. Farnaz LOGAN IM CT HEAD/NECK Final Result documented in this encounter Visit Diagnoses Diagnosis Chronic sinusitis, unspecified location- Primary Cervical lymphadenopathy Enlargement of lymph nodes Chronic sinusitis, unspecified location Cervical lymphadenopathy Enlargement of lymph nodes Chronic sinusitis, unspecified location Cervical lymphadenopathy Enlargement of lymph nodes documented in this encounter Care Teams Education Instructor Relationship Specialty Start Date End Date Farnaz Aranda PA [address] [place] [address] [email or web address] PCP - General Unknown Provider Specialty 07/23/19 01/21/22 Barbara Monroy MD [address] [place] [address] PCP - General Internal Medicine 01/22/22 Linda Holloway MD [address] [address] Historical LMR Provider 07/25/17 10/17/21 Kenisha Flores MD [address] [place] [address] [email or web address] Historical LMR Provider 07/25/17 10/17/21 Salena Cardenas MD [address] [address] [email or web address] Historical LMR Provider 07/25/17 10/17/21 Shay Dao MD [address] [place] [address] Historical LMR Provider 07/25/17 10/17/21 Casey Lofton MD Gastroenterology 02/14/20 documented as of this encounter Additional Source Comments The information contained in this document represents components of the legal health record. It is not the complete legal health record.[facility]
--- OUTSIDE RECORDS SUMMARY | 2025-08-29 12:20 | XMS_ITS | Encounter Summary ---
Author Organization [facility] Address [address] [place] [address] Phone Care Team Providers Care Buffing Machine Operator Name Role Phone Linda Holloway MD Unavailable +[phone] Kenisha Flores MD Unavailable + Salena Cardenas MD Unavailable [phone] Shay Dao MD Unavailable +[phone] Farnaz Aranda Primary Care Provider +[phone] Casey Lofton MD Unavailable Unavailabl e Barbara Monroy MD Primary Care Provider Encounter Details Date Type Department Care Team (Late st Contact Info) Description 09/24/2020 Procedure Pass [facility], Ct Scan - [address] [address] Social History Tobacco Use Types Packs/Day Years [...] on filedocumented in this encounter Care Teams Buffing Machine Operator Relationship Specialty Start Date End Date Farnaz Aranda PA 15 [place] [address] [email or web address] PCP - General Unknown Provider Specialty 07/23/19 01/21/22 Barbara Monroy MD 15 [place] [address] [email or web address] PCP - General Internal Medicine 01/22/22 Linda Holloway MD 15 [facility], [address] [place] [address] [email or web address] Historical LMR Provider 07/25/17 10/17/21 Kenisha Flores MD [address] [place] [address] [email or web address] Historical LMR Provider 07/25/17 10/17/21 Salena Cardenas MD [address] [address] [email or web address] Historical LMR Provider 07/25/17 10/17/21 Shay Dao MD 41 [place] [address] Historical LMR Provider 07/25/17 10/17/21 Casey Lofton MD Gastroenterology 02/14/20 documented as of this encounter Additional Source Comments The information contained in this document represents components of the legal health record. It is not the complete legal health record.[facility]
--- OUTSIDE RECORDS SUMMARY | 2025-08-29 12:20 | XMS_ITS | Encounter Summary ---
Author Organization [facility] Address [address] [place] [address] Phone Care Team Providers Care Truer Pinion And Wheel Name Role Phone Linda Holloway MD Unavailable [phone] Kenisha Flores MD Unavailable + Salena Cardenas MD Unavailable +[phone] Shay Dao MD Unavailable +[phone] Farnaz Aranda Primary Care Provider +[phone] Casey Lofton MD Unavailable Unavailabl e Barbara Monroy MD Primary Care Provider [phone] Encounter Details Date Type Department Care Team (Late st Contact Info) Description 07/30/2020 Procedure Pass [facility] Echo Lab 30 [place] [address] Social History Tobacco Use Types Packs/Day Years [...] on filedocumented in this encounter Care Teams Truer Pinion And Wheel Relationship Specialty Start Date End Date Farnaz Aranda PA 15 [place] [address] [email or web address] PCP - General Unknown Provider Specialty 07/23/19 01/21/22 Barbara Monroy MD 15 [place] [address] PCP - General Internal Medicine 01/22/22 Linda Holloway MD [address] [address] [email or web address] Historical LMR Provider 07/25/17 10/17/21 Kenisha Flores MD [address] [place] [address] [email or web address] Historical LMR Provider 07/25/17 10/17/21 Salena Cardenas MD [address] [address] [email or web address] Historical LMR Provider 07/25/17 10/17/21 Shay Dao MD [address] [place] [address] Historical LMR Provider 07/25/17 10/17/21 Casey Lofton MD Gastroenterology 02/14/20 documented as of this encounter Additional Source Comments The information contained in this document represents components of the legal health record. It is not the complete legal health record.[facility]
--- OUTSIDE RECORDS SUMMARY | 2025-08-29 12:20 | XMS_ITS | Encounter Summary ---
Author Organization [facility] Address [address] [place] [address] Phone Care Team Providers Care Scoop Machine Operator Name Role Phone Linda Holloway MD Unavailable +[phone] Kenisha Flores MD Unavailable + Salena Cardenas MD Unavailable +[phone] Shay Dao MD Unavailable +[phone] Farnaz Aranda Primary Care Provider +[phone] Casey Lofton MD Unavailable Unavailabl e Barbara Monroy MD Primary Care Provider [phone] Reason for Referral * Outpatient Procedure - Closed Specialty Diagnoses / Procedures Referred By Contlina t Referred To Contact Diagnoses SOB (shortness of breath) Procedures Adult Echo TTE Farnaz Aranda PA Phone: tel: fax: mailto:[email or web address] Referral ID Status Reason Start Date Expiration Date Visits Re quested Visits Authorized [id number] Closed 07/25/2020 07/25/2021 1 1 Encounter Details Date Type Department Care Team (Latest Contact Info) Description 07/25/2020 Transcribe Orders [facility] Department 30 [place], [place] [phone] Farnaz Aranda PA 15 [facility] [address] [email or web address] SOB (shortness of breath) (Primary Dx) Social [...] breath documented in this encounter Care Teams Scoop Machine Operator Relationship Specialty Start Date End Date Farnaz Aranda PA [address] [place] [address] [email or web address] PCP - General Unknown Provider Specialty 07/23/19 01/21/22 Barbara Monroy MD [address] [place] [address] [email or web address] PCP - General Internal Medicine 01/22/22 Linda Holloway MD [address] [place] [address] Historical LMR Provider 07/25/17 10/17/21 Kenisha Flores MD [address] [place] [address] [email or web address] Historical LMR Provider 07/25/17 10/17/21 Salena Cardenas MD [address] [place] [address] [email or web address] Historical LMR Provider 07/25/17 10/17/21 Shay Dao MD 41 [place] [address] Historical LMR Provider 07/25/17 10/17/21 Casey Lofton MD Gastroenterology 02/14/20 documented as of this encounter Additional Source Comments The information contained in this document represents components of the legal health record. It is not the complete legal health record.[facility]
--- OUTSIDE RECORDS SUMMARY | 2025-08-29 12:20 | XMS_ITS | Encounter Summary ---
Author Organization [facility] Address [address] [place] [address] Phone Care Team Providers Care Record Press Tender Name Role Phone Linda Holloway MD Unavailable +[phone] Kenisha Flores MD Unavailable + Salena Cardenas MD Unavailable +[phone] Shay Dao MD Unavailable +[phone] Farnaz Aranda Primary Care Provider +[phone] Casey Lofton MD Unavailable Unavailabl e Barbara Monroy MD Primary Care Provider Encounter Details Date Type Department Care Team (Late st Contact Info) Description 08/06/2020 Ancillary Orders Virtual Department 30 [place] [address] Farnaz Aranda PA [address] [place] [address] [email or web address] Social History Tobacco Use Types [...] breast documented in this encounter Care Teams Record Press Tender Relationship Specialty Start Date End Date Farnaz Aranda PA 15 [place] [address] [email or web address] PCP - General Unknown Provider Specialty 07/23/19 01/21/22 Barbara Monroy MD 15 [place] [address] PCP - General Internal Medicine 01/22/22 Linda Holloway MD 15 [facility] [place] [address] Historical LMR Provider 07/25/17 10/17/21 Kenisha Flores MD [address] [place] [address] [email or web address] Historical LMR Provider 07/25/17 10/17/21 Salena Cardenas MD [address] [address] [email or web address] Historical LMR Provider 07/25/17 10/17/21 Shay Dao MD [address] [place] [address] Historical LMR Provider 07/25/17 10/17/21 Casey Lofton MD Gastroenterology 02/14/20 documented as of this encounter Additional Source Comments The information contained in this document represents components of the legal health record. It is not the complete legal health record.[facility]
--- OUTSIDE RECORDS SUMMARY | 2025-08-29 12:20 | XMS_ITS | Encounter Summary ---
Author Organization [facility] Address [address] [place] [address] Phone Care Team Providers Care Counter Top Assembler Name Role Phone Linda Holloway MD Unavailable +[phone] Kenisha Flores MD Unavailable + Salena Cardenas MD Unavailable +[phone] Shay Dao MD Unavailable +[phone] Farnaz Aranda Primary Care Provider +[phone] Casey Lofton MD Unavailable Unavailabl e Barbara Monroy MD Primary Care Provider [phone] Encounter Details Date Type Department Care Team (Late st Contact Info) Description 08/06/2020 Procedure Pass [facility], [address] [address] Social History Tobacco Use Types Packs/Day Years [...] on filedocumented in this encounter Care Teams Counter Top Assembler Relationship Specialty Start Date End Date Farnaz Aranda PA 15 [place] [address] [email or web address] PCP - General Unknown Provider Specialty 07/23/19 01/21/22 Barbara Monroy MD 15 [place] [address] PCP - General Internal Medicine 01/22/22 Linda Holloway MD 15 [facility] [place] [address] Historical LMR Provider 07/25/17 10/17/21 Kenisha Flores MD [address] [place] [address] [email or web address] Historical LMR Provider 07/25/17 10/17/21 Salena Cardenas MD [address] [address] [email or web address] Historical LMR Provider 07/25/17 10/17/21 Shay Dao MD [address] [place] [address] Historical LMR Provider 07/25/17 10/17/21 Casey Lofton MD Gastroenterology 02/14/20 documented as of this encounter Additional Source Comments The information contained in this document represents components of the legal health record. It is not the complete legal health record.[facility]
--- OUTSIDE RECORDS SUMMARY | 2025-08-29 12:20 | XMS_ITS | Encounter Summary ---
Author Organization [facility] Address [address] [place] [address] Phone Care Team Providers Care Wing Coverer Name Role Phone Linda Holloway MD Unavailable [phone] Kenisha Flores MD Unavailable + Salena Cardenas MD Unavailable +[phone] Shay Dao MD Unavailable +[phone] Farnaz Aranda Primary Care Provider +[phone] Casey Lofton MD Unavailable Unavailabl e Barbara Monroy MD Primary Care Provider Encounter Details Date Type Department Care Team (Late st Contact Info) Description 08/06/2020 Procedure Pass [facility], [address] [address] Social History Tobacco Use Types Packs/Day Years [...] on filedocumented in this encounter Care Teams Wing Coverer Relationship Specialty Start Date End Date Farnaz Aranda PA 15 [place] [address] [email or web address] PCP - General Unknown Provider Specialty 07/23/19 01/21/22 Barbara Monroy MD 15 [place] [address] PCP - General Internal Medicine 01/22/22 Linda Holloway MD 15 [facility] [place] [address] Historical LMR Provider 07/25/17 10/17/21 Kenisha Flores MD [address] [place] [address] [email or web address] Historical LMR Provider 07/25/17 10/17/21 Salena Cardenas MD [address] [address] [email or web address] Historical LMR Provider 07/25/17 10/17/21 Shay Dao MD [address] [place] [address] Historical LMR Provider 07/25/17 10/17/21 Casey Lofton MD Gastroenterology 02/14/20 documented as of this encounter Additional Source Comments The information contained in this document represents components of the legal health record. It is not the complete legal health record.[facility]
--- OUTSIDE RECORDS SUMMARY | 2025-08-29 12:21 | XMS_ITS | Encounter Summary ---
Author Organization [facility] Address [address] [place] [address] Phone Care Team Providers Care Inspector Quality Assurance Name Role Phone Linda Holloway MD Unavailable +[phone] Kenisha Flores MD Unavailable + Salena Cardenas MD Unavailable +[phone] Shay Dao MD Unavailable +[phone] Farnaz Aranda Primary Care Provider +[phone] Casey Lofton MD Unavailable Unavailabl e Barbara Monroy MD Primary Care Provider Encounter Details Date Type Department Care Team (Late st Contact Info) Description 09/24/2020 Procedure Pass [facility], Ct Scan - [address] [address] Social History Tobacco Use Types Packs/Day Years [...] on filedocumented in this encounter Care Teams Inspector Quality Assurance Relationship Specialty Start Date End Date Farnaz Aranda PA 15 [place] [address] [email or web address] PCP - General Unknown Provider Specialty 07/23/19 01/21/22 Barbara Monroy MD 15 [place] [address] [email or web address] PCP - General Internal Medicine 01/22/22 Linda Holloway MD 15 [facility], [address] [place] [address] [email or web address] Historical LMR Provider 07/25/17 10/17/21 Kenisha Flores MD [address] [place] [address] [email or web address] Historical LMR Provider 07/25/17 10/17/21 Salena Cardenas MD [address] [address] [email or web address] Historical LMR Provider 07/25/17 10/17/21 Shay Dao MD 41 [place] [address] Historical LMR Provider 07/25/17 10/17/21 Casey Lofton MD Gastroenterology 02/14/20 documented as of this encounter Additional Source Comments The information contained in this document represents components of the legal health record. It is not the complete legal health record.[facility]
--- OUTSIDE RECORDS SUMMARY | 2025-08-29 12:21 | XMS_ITS | Encounter Summary ---
Author Organization [facility] Address [address] [place] [address] Phone Care Team Providers Care Detective Lieutenant Name Role Phone Linda Holloway MD Unavailable [phone] Kenisha Flores MD Unavailable + Salena Cardenas MD Unavailable +[phone] Shay Dao MD Unavailable +[phone] Kenisha Flores MD Primary Care Prov ider Farnaz Aranda Primary Care Provider +[phone] Casey Lofton MD Unavailable Unavailabl e Barbara Monroy MD Primary Care Provider [phone] Encounter Details Date Type Department Care Team (Late st Contact Info) Description 2019 Ancillary Orders Virtual Department 30 [place] [address] Farnaz Aranda PA 15 [place] [address] [email or web address] Breast screening Social History Tobacco Use Types [...] lowers the sensitivity of mammography. POS - [id number] Narrative 07/23/2019 5:03 PM EDT STUDY: Bilateral [...] whichlowers the sensitivity of mammography. POS - [id number] Farnaz LOGAN IMG MG EXAMS Final Result [...] documented as of this encounter Care Teams Detective Lieutenant Relationship Specialty Start Date End Date Kenisha Flores MD [address] [place] [address] PCP - General 10/13/17 07/22/19 Farnaz Aranda PA [address] [place] [address] [email or web address] PCP - General Unknown Provider Specialty 07/23/19 01/21/22 Barbara Monroy MD 15 [place] [address] [email or web address] PCP - General Internal Medicine 01/22/22 Linda Holloway MD 15 [facility], 2nd [place] [address] Historical LMR Provider 07/25/17 10/17/21 Kenisha Flores MD 238 [place] [address] [email or web address] Historical LMR Provider 07/25/17 10/17/21 Salena Cardenas MD [address] [address] [email or web address] Historical LMR Provider 07/25/17 10/17/21 Shay Dao MD 41 [place] [address] Historical LMR Provider 07/25/17 10/17/21 Casey Lofotn MD Gastroenterology 02/14/20 documented as of this encounter Additional Source Comments The information contained in this document represents components of the legal health record. It is not the complete legal health record.[facility]
--- OUTSIDE RECORDS SUMMARY | 2025-08-29 12:24 | XMS_ITS | Encounter Summary ---
Author Organization [facility] Address [address] [place] [address] Phone Care Team Providers Care Merchandise Presentation Associate Name Role Phone Linda Holloway MD Unavailable [phone] Kenisha Flores MD Unavailable + Salena Cardenas MD Unavailable [phone] Shay Dao MD Unavailable [phone] Kenisha Flores MD Primary Care Prov ider Farnaz Aranda Primary Care Provider [phone] Casey Lofton MD Unavailable Unavailabl e Barbara Monroy MD Primary Care Provider [phone]- [phone] Encounter Details Date Type Department Care Team (Late st Contact Info) Description 07/10/2019 Ancillary Orders [facility],Outside Imaging [address] [place] [address] System, Provider Not In, [facility] [address] [address] Social History Tobacco Use Types Packs/Day Years [...] documented as of this encounter Care Teams Merchandise Presentation Associate Relationship Specialty Start Date End Date Kenisha Flores MD [address] [place] [address] [email or web address] PCP - General 10/13/17 07/22/19 Farnaz Aranda PA [address] [place] [address] [email or web address] PCP - General Unknown Provider Specialty 07/23/19 01/21/22 Barbara Monroy MD 15 [place] [address] PCP - General Internal Medicine 01/22/22 Linda Holloway MD 15 [facility], 2nd [place] [address] Historical LMR Provider 07/25/17 10/17/21 eKnisha Flores MD [address] [place] [address] [email or web address] Historical LMR Provider 07/25/17 10/17/21 Salena Cardenas MD [address] [address] [email or web address] Historical LMR Provider 07/25/17 10/17/21 Shay Dao MD 41 [place] [address] Historical LMR Provider 07/25/17 10/17/21 Casey Lofton MD Gastroenterology 02/14/20 documented as of this encounter Additional Source Comments The information contained in this document represents components of the legal health record. It is not the complete legal health record.[facility]
--- OUTSIDE RECORDS SUMMARY | 2025-08-29 12:26 | XMS_ITS | Encounter Summary ---
Author Organization [facility] Address [address] [place] [address] Phone Care Team Providers Care Bookmaker Map Name Role Phone Linda Holloway MD Unavailable [phone] Kenisha Flores MD Unavailable + Salena Cardenas MD Unavailable [phone] Shay Dao MD Unavailable [phone] Farnaz Arnada Primary Care Provider [phone] Casey Lofton MD Unavailable Unavailabl e Barbara Monroy MD Primary Care Provider Encounter Details Date Type Department Care Team (Latest Contact Info) Description 07/30/2019 Transcribe Orders [address] [address] Farnaz Aranda PA [address] [place] [address] [email or web address] Serum calcium elevated (Primary Dx); Hypertension, unspecified [...] HEMOGLOBIN A1C 5.8 4.3 - 5.8 % [facility] Blood 07/30/2019 8:49 AM EDT 07/30/2019 10:08 AM EDT Farnaz LOGAN LAB BLOOD BKR ORDERABLES Final Result [address] [address] * (ABNORMAL) 25-OH vitamin D (07/30/2019 8:49 AM EDT) Pathologist [facility] 25 OH VIT D (TOTAL) 11(L) 30 - 60 ng/mL [facility] Blood 07/30/2019 8:49 AM EDT 07/30/2019 10:08 AM EDT Farnaz LOGAN LAB BLOOD BKR ORDERABLES Final Result [address] [address] * (ABNORMAL) Basic metabolic panel (07/30/2019 8:49 AM EDT) Pathologist [facility] SODIUM 143 133 - 146 mmol/L [facility] CHLORIDE 103 96 - 108 mmol/L [facility] POTASSIUM 4.5 3.3 - 5.1 mmol/L [facility] CO2 28 21 - 35 mmol/L [facility] BUN 11 6 - 19 mg/dL [facility] CREATININE 0.80 0.5 - 1.5 mg/dL [facility] GLUCOSE 136(H) 70 - 99 mg/dL [facility] CALCIUM 9.7 8.4 - 10.3 mg/dL [facility] EGFR 78 >59 mL/min/1.7 3m2 [facility] Comment:If patient is black, multiply result by 1.159. Estimated glomerular filtration rate calculated using the CKD-EPI equation. ANION GAP 17 10 - 20 mmol/L [facility] Blood 07/30/2019 8:49 AM EDT 07/30/2019 10:08 AM EDT us Farnaz LOGAN LAB BLOOD BKR ORDERABLES Final Result [facility] 30 [place] [address] documented in this encounter Visit Diagnoses Diagnosis [...] documented as of this encounter Care Teams Bookmaker Map Relationship Specialty Start Date End Date Farnaz Aranda PA [address] [place] [address] [email or web address] PCP - General Unknown Provider Specialty 07/23/19 01/21/22 Barbara Monroy MD [address] [place] [address] [email or web address] PCP - General Internal Medicine 01/22/22 Linda Holloway MD [address] [address] Historical LMR Provider 07/25/17 10/17/21 Kenisha Flores MD [address] [place] [address] [email or web address] Historical LMR Provider 07/25/17 10/17/21 Salena Cardenas MD [address] [address] Historical LMR Provider 07/25/17 10/17/21 Shay Dao MD 41 [place] [address] Historical LMR Provider 07/25/17 10/17/21 Casey Lofton MD Gastroenterology 02/14/20 documented as of this encounter Additional Source Comments The information contained in this document represents components of the legal health record. It is not the complete legal health record.[facility]
--- OUTSIDE RECORDS SUMMARY | 2025-08-29 12:26 | XMS_ITS | Encounter Summary ---
Author Organization [facility] Address [address] [place] [address] Phone Care Team Providers Care Physicist Solid Earth Name Role Phone Linda Holloway MD Unavailable [phone] Kenisha Flores MD Unavailable + Salena Cardenas MD Unavailable [phone] Shay Dao MD Unavailable [phone] Farnaz Aranda Primary Care Provider [phone] Casey Lofton MD Unavailable Unavailabl e Barbara Monroy MD Primary Care Provider Encounter Details Date Type Department Care Team (Latest Contact Info) Description 10/15/2019 Transcribe Orders [facility] Phleb [address] [address] Farnaz Aranda PA [address] [place] [address] [email or web address] Hypertension, unspecified type (Primary Dx); Low vitamin [...] D (TOTAL) 24(L) 30 - 60 ng/mL [facility] Blood 10/15/2019 10:4 1 AM EST 10/15/2019 10:48 AM EST Farnaz LOGAN LAB BLOOD BKR ORDERABLES Final Result Performing Organization Address City/[facility]/ZIP Co de Phone Number [address] [address] * (ABNORMAL) Basic metabolic panel (10/15/2019 10:41 AM EST) SODIUM 139 133 - 146 mmol/L [facility] CHLORIDE 100 96 - 108 mmol/L [facility] POTASSIUM 3.8 3.3 - 5.1 mmol/L [facility] CO2 25 21 - 35 mmol/L [facility] BUN 12 6 - 19 mg/dL [facility] CREATININE 0.70 0.5 - 1.5 mg/dL [facility] GLUCOSE 202(H) 70 - 99 mg/dL [facility] CALCIUM 9.4 8.4 - 10.3 mg/dL [facility] EGFR 92 >59 mL/min/1.7 3m2 [facility] Comment:If patient is black, multiply result by 1.159. Estimated glomerular filtration rate calculated using the CKD-EPI equation. ANION GAP 18 10 - 20 mmol/L [facility] Blood 10/15/2019 10:4 1 AM EST 10/15/2019 10:48 AM EST Farnaz LOGAN LAB BLOOD BKR ORDERABLES Final Result Performing Organization Address City/[facility]/ZIP Co de Phone Number [address] [address] documented in this encounter Visit Diagnoses Diagnosis Hypertension, unspecified type- Primary Low vitamin D level documented in this encounter Additional Health Concerns Infection Onset Date Last Indicated Resolved Time Clearance-CoV Comment:Auto-resolved with negative COVID-19 PCR 02/13/2020 02/13/2020 02/13/2020 4:00 PM E DT CoV-Risk Comment:COVID-19 test pending Adm from home 02/13/2020 02/13/2020 02/14/2020 12:27 PM EDT documented as of this encounter Care Teams Physicist Solid Earth Relationship Specialty Start Date End Date Farnaz Aranda PA [address] [place] [address] [email or web address] PCP - General Unknown Provider Specialty 07/23/19 01/21/22 Barbara Monroy MD [address] [place] [address] PCP - General Internal Medicine 01/22/22 Linda Holloway MD 15 [facility] [place] [address] Historical LMR Provider 07/25/17 10/17/21 Kenisha Flores MD [address] [place] [address] [email or web address] Historical LMR Provider 07/25/17 10/17/21 Salena Cardenas MD [address] [address] [email or web address] Historical LMR Provider 07/25/17 10/17/21 Shay Dao MD [address] [place] [address] Historical LMR Provider 07/25/17 10/17/21 Casey Lofton MD Gastroenterology 02/14/20 documented as of this encounter Additional Source Comments The information contained in this document represents components of the legal health record. It is not the complete legal health record.[facility]
--- OUTSIDE RECORDS SUMMARY | 2025-08-29 12:27 | XMS_ITS | Encounter Summary ---
Author Organization [facility] Address [address] [place] [address] Phone Care Team Providers Care Stock Drier Tender Name Role Phone Linda Holloway MD Unavailable [phone] Kenisha Flores MD Unavailable + Salena Cardenas MD Unavailable [phone] Shay Dao MD Unavailable [phone] Farnaz Aranda Primary Care Provider [phone] Casey Lofton MD Unavailable Unavailabl e Barbara Monroy MD Primary Care Provider [phone] Reason for Referral * MRI/CAT Scan - Closed Specialty Diagnoses / Procedures Referred By Clarice [email or web address] Referred To Contact Radiology Diagnoses Pulmonary nodule Procedures CT Chest Farnaz Aranda PA Phone: tel: fax: [email or web address] Referral ID Status Reason Start Date Expiration Date Visits Re quested Visits Authorized [id number] Closed 06/29/2021 06/29/2022 1 1 Encounter Details Date Type Department Care Team (Latest Contact Info) Description 06/29/2021 Transcribe Orders [facility] Department 30 [place], [place] [phone] Farnaz Aranda PA [address] [place] [address] [email or web address] Pulmonary nodule (Primary Dx) Social History Tobacco [...] classified documented in this encounter Care Teams Stock Drier Tender Relationship Specialty Start Date End Date Farnaz Aranda PA [address] [place] [address] [email or web address] PCP - General Unknown Provider Specialty 07/23/19 01/21/22 Barbara Monroy MD 15 [place] [address] PCP - General Internal Medicine 01/22/22 Linda Holloway MD [address] [address] Historical LMR Provider 07/25/17 10/17/21 Kenisha Flores MD [address] [place] [address] [email or web address] Historical LMR Provider 07/25/17 10/17/21 Salena Cardenas MD [address] [address] [email or web address] Historical LMR Provider 07/25/17 10/17/21 Shay Dao MD 41 [place] [address] Historical LMR Provider 07/25/17 10/17/21 Casey Lofton MD Gastroenterology 02/14/20 documented as of this encounter Additional Source Comments The information contained in this document represents components of the legal health record. It is not the complete legal health record.[facility]
--- OUTSIDE RECORDS SUMMARY | 2025-08-29 12:27 | XMS_ITS | Encounter Summary ---
Author Organization [facility] Address [address] [place] [address] Phone Care Team Providers Care Tire Service Technician Name Role Phone Linda Holloway MD Unavailable [phone] Kenisha Flores MD Unavailable + Salena aCrdenas MD Unavailable [phone] Shay Dao MD Unavailable [phone] Farnaz Aranda Primary Care Provider [phone] Casey Lofton MD Unavailable Unavailabl e Barbara Monroy MD Primary Care Provider [phone] Encounter Details Date Type Department Care Team (Latest Contact Info) Description 08/27/2019 Transcribe Orders [address] [address] Farnaz Aranda PA [address] [place] [address] [email or web address] Hypertension, unspecified type (Primary Dx); Vitamin D [...] D (TOTAL) 19(L) 30 - 60 ng/mL [facility] Blood 08/27/2019 8:30 AM EST 08/27/2019 9:16 AM EST Farnaz LOGAN LAB BLOOD BKR ORDERABLES Final Result [address] [address] * (ABNORMAL) Basic metabolic panel (08/27/2019 8:30 AM EST) SODIUM 142 133 - 146 mmol/L [facility] CHLORIDE 104 96 - 108 mmol/L [facility] POTASSIUM 4.4 3.3 - 5.1 mmol/L [facility] CO2 27 21 - 35 mmol/L [facility] BUN 12 6 - 19 mg/dL [facility] CREATININE 0.70 0.5 - 1.5 mg/dL [facility] GLUCOSE 130(H) 70 - 99 mg/dL [facility] CALCIUM 9.4 8.4 - 10.3 mg/dL [facility] EGFR 92 >59 mL/min/1.7 3m2 [facility] Comment:If patient is black, multiply result by 1.159. Estimated glomerular filtration rate calculated using the CKD-EPI equation. ANION GAP 15 10 - 20 mmol/L [facility] Blood 08/27/2019 8:30 AM EST 08/27/2019 9:16 AM EST Farnaz LOGAN LAB BLOOD BKR ORDERABLES Final Result [address] [address] documented in this encounter Visit Diagnoses Diagnosis Hypertension, unspecified type- Primary Vitamin D deficiency documented in this encounter Additional Health Concerns Infection Onset Date Last Indicated Resolved Time Clearance-CoV Comment:Auto-resolved with negative COVID-19 PCR 02/13/2020 02/13/2020 02/13/2020 4:00 PM E DT CoV-Risk Comment:COVID-19 test pending Adm from home 02/13/2020 02/13/2020 02/14/2020 12:27 PM EDT documented as of this encounter Care Teams Tire Service Technician Relationship Specialty Start Date End Date Farnaz Aranda PA 15 [place] [address] [email or web address] PCP - General Unknown Provider Specialty 07/23/19 01/21/22 Barbara Monroy MD 15 [place] [address] PCP - General Internal Medicine 01/22/22 Linda Holloway MD 15 [facility] [place] [address] Historical LMR Provider 07/25/17 10/17/21 Kenisha Flores MD 238 [place] [address] [email or web address] Historical LMR Provider 07/25/17 10/17/21 Salena Cardenas MD [address] [address] [email or web address] Historical LMR Provider 07/25/17 10/17/21 Shay Dao MD [address] [place] [address] Historical LMR Provider 07/25/17 10/17/21 Casey Lofton MD Gastroenterology 02/14/20 documented as of this encounter Additional Source Comments The information contained in this document represents components of the legal health record. It is not the complete legal health record.[facility]
--- OUTSIDE RECORDS SUMMARY | 2025-08-29 12:28 | XMS_ITS | Encounter Summary ---
Author Organization [facility] Address [address] [place] [address] Phone Care Team Providers Care Gas Engine Operator Name Role Phone Linda Holloway MD Unavailable [phone] Kenisha Flores MD Unavailable + Salena Cardenas MD Unavailable [phone] Shay Dao MD Unavailable [phone] Farnaz Aranda Primary Care Provider [phone] Casey Lofton MD Unavailable Unavailabl e Barbara Monroy MD Primary Care Provider Encounter Details Date Type Department Care Team (Latest Contact Info) Description 11/02/2019 Transcribe Orders [facility] Phleb [address] [address] Farnaz Aranda PA [address] [place] [address] [email or web address] Elevated glucose (Primary Dx); Hypertension, unspecified type [...] HEMOGLOBIN A1C 6.4(H) 4.3 - 5.8 % [facility] Blood 11/02/2019 8:42 AM EST 11/02/2019 9:16 AM EST Farnaz LOGAN LAB BLOOD BKR ORDERABLES Final Result [address] [address] * (ABNORMAL) Basic metabolic panel (11/02/2019 8:42 AM EST) SODIUM 141 133 - 146 mmol/L [facility] CHLORIDE 99 96 - 108 mmol/L [facility] POTASSIUM 4.3 3.3 - 5.1 mmol/L [facility] CO2 27 21 - 35 mmol/L [facility] BUN 17 6 - 19 mg/dL [facility] CREATININE 0.80 0.5 - 1.5 mg/dL [facility] GLUCOSE 136(H) 70 - 99 mg/dL [facility] CALCIUM 10.3 8.4 - 10.3 mg/dL [facility] EGFR 78 >59 mL/min/1.7 3m2 [facility] Comment:If patient is black, multiply result by 1.159. Estimated glomerular filtration rate calculated using the CKD-EPI equation. ANION GAP 19 10 - 20 mmol/L [facility] Blood 11/02/2019 8:42 AM EST 11/02/2019 9:16 AM EST Farnaz Aranda [place] LAB BLOOD BKR ORDERABLES Final Result Performing Organization Address City/[facility]/ZIP Co de Phone Number [address] [address] documented in this encounter Visit Diagnoses Diagnosis Elevated glucose- Primary Other abnormal glucose Hypertension, unspecified type documented in this encounter Additional Health Concerns Infection Onset Date Last Indicated Resolved Time Clearance-CoV Comment:Auto-resolved with negative COVID-19 PCR 02/13/2020 02/13/2020 02/13/2020 4:00 PM E DT CoV-Risk Comment:COVID-19 test pending Adm from home 02/13/2020 02/13/2020 02/14/2020 12:27 PM EDT documented as of this encounter Care Teams Gas Engine Operator Relationship Specialty Start Date End Date Farnaz Aranda PA [address] [place] [address] [email or web address] PCP - General Unknown Provider Specialty 07/23/19 01/21/22 Barbara Monroy MD 15 [place] [address] [email or web address] PCP - General Internal Medicine 01/22/22 Linda Holloway MD 15 [facility], 2nd [place] [address] Historical LMR Provider 07/25/17 10/17/21 Kenisha Flores MD [address] [place] [address] [email or web address] Historical LMR Provider 07/25/17 10/17/21 Salena Cardenas MD [address] [address] [email or web address] Historical LMR Provider 07/25/17 10/17/21 Shay Dao MD 41 [place] [address] Historical LMR Provider 07/25/17 10/17/21 Casey Lofton MD Gastroenterology 02/14/20 documented as of this encounter Additional Source Comments The information contained in this document represents components of the legal health record. It is not the complete legal health record.[facility]
--- OUTSIDE RECORDS SUMMARY | 2025-08-29 12:28 | XMS_ITS | Encounter Summary ---
Author Organization [facility] Address [address] [place] [address] Phone Care Team Providers Care Bobbin Drier Name Role Phone Farnaz Aranda Primary Care Provider [phone] Casey Lofton MD [facility] Barbara Dumont MD Primary Care Provider [phone] Encounter Details Date Type Department Care Team (Latest Contact Info) Description 01/15/2022 Transcribe Orders Virtual Department 30 [place] [address] Farnaz Aranda PA 15 [place] [address] [email or web address] Breast screening (Primary Dx) Social History Tobacco [...] unspecified documented in this encounter Care Teams Bobbin Drier Relationship Specialty Start Date End Date Farnaz Aranda PA Mike Carlson. [place] [address] [email or web address] PCP - General Unknown Provider Specialty 07/23/19 Barbara Monroy MD [address] [place] [address] [email or web address] PCP - General Internal Medicine 01/22/22 Casey Lofton MD Gastroenterology 02/14/20 documented as of this encounter Additional Source Comments The information contained in this document represents components of the legal health record. It is not the complete legal health record.[facility]
--- OUTSIDE RECORDS SUMMARY | 2025-08-29 12:29 | XMS_ITS | Encounter Summary ---
Author Organization [facility] Address [address] [place] [address] Phone Care Team Providers Care Tank Car Inspector Name Role Phone Farnaz Aranda Primary Care Provider [phone] Casey Lofton MD [facility] Barbara Dumont MD Primary Care Provider [phone] Encounter Details Date Type Department Care Team (Late st Contact Info) Description 01/15/2022 Transcribe Orders Virtual Department 30 [place] [address] Farnaz Aranda PA 15 [place] [address] [email or web address] Cough (Primary Dx) Social History Tobacco Use [...] Cough documented in this encounter Care Teams Tank Car Inspector Relationship Specialty Start Date End Date Farnaz Aranda PA [address] [place] [address] [email or web address] PCP - General Unknown Provider Specialty 07/23/19 Barbara Monroy MD [address] [place] [email or web address] PCP - General Internal Medicine 01/22/22 Casey Lofton MD Gastroenterology 02/14/20 documented as of this encounter Additional Source Comments The information contained in this document represents components of the legal health record. It is not the complete legal health record.[facility]
--- OUTSIDE RECORDS SUMMARY | 2025-08-29 12:30 | XMS_ITS | Encounter Summary ---
Author Organization [facility] Address [address] [place] [address] Phone Care Team Providers Care Header Machine Operator Name Role Phone Linda Holloway MD Unavailable [phone] Kenisha Flores MD Unavailable + Salena Cardenas MD Unavailable [phone] Shay Dao MD Unavailable [phone] Farnaz Aranda Primary Care Provider [phone] Casey Lofton MD Unavailable Unavailabl e Barbara Monroy MD Primary Care Provider [phone] Encounter Details Date Type Department Care Team (Late st Contact Info) Description 06/29/2021 Procedure Pass [facility], Ct Scan - [address] [address] Social History Tobacco Use Types Packs/Day Years [...] on filedocumented in this encounter Care Teams Header Machine Operator Relationship Specialty Start Date End Date Farnaz Aranda PA 15 [place] [address] [email or web address] PCP - General Unknown Provider Specialty 07/23/19 01/21/22 Barbara Monroy MD 15 [place] [address] [email or web address] PCP - General Internal Medicine 01/22/22 Linda Holloway MD 15 [facility] [place] [address] Historical LMR Provider 07/25/17 10/17/21 Kenisha Flores MD [address] [place] [address] [email or web address] Historical LMR Provider 07/25/17 10/17/21 Salena Cardenas MD [address] [address] [email or web address] Historical LMR Provider 07/25/17 10/17/21 Shay Dao MD 41 [place] [address] Historical LMR Provider 07/25/17 10/17/21 Casey Lofton MD Gastroenterology 02/14/20 documented as of this encounter Additional Source Comments The information contained in this document represents components of the legal health record. It is not the complete legal health record.[facility]
--- OUTSIDE RECORDS SUMMARY | 2025-08-29 12:30 | XMS_ITS | Encounter Summary ---
Author Organization [facility] Address [address] [place] [address] Phone Care Team Providers Care Supervisor Specialty Plant Name Role Phone Farnaz Aranda Primary Care Provider [phone] Casey Lofton MD [facility] Barbara Monroy MD Primary Care Provider [phone] Encounter Details Date Type Department Care Team (Late st Contact Info) Description 01/15/2022 Procedure Pass [facility], [address] [address] Social History Tobacco Use Types Packs/Day Years [...] on filedocumented in this encounter Care Teams Supervisor Specialty Plant Relationship Specialty Start Date End Date Farnaz Aranda [place] [address] [email or web address] PCP - General Unknown Provider Specialty 07/23/19 Barbara Monroy MD [address] [place] [address] [email or web address] PCP - General Internal Medicine 01/22/22 Casey Lofton MD Gastroenterology 02/14/20 documented as of this encounter Additional Source Comments The information contained in this document represents components of the legal health record. It is not the complete legal health record.[facility]
--- OUTSIDE RECORDS SUMMARY | 2025-08-29 12:31 | XMS_ITS | Encounter Summary ---
Author Organization [facility] Address [address] [place] [address] Phone Care Team Providers Care Cable Splicer Helper Name Role Phone Linda Holloway MD Unavailable [phone] Kenisha Flores MD Unavailable + Salena Cardenas MD Unavailable [phone] Shay Dao MD Unavailable [phone] Farnaz Aranda Primary Care Provider [phone] Casey Lofton MD Unavailable Unavailabl e Barbara Monroy MD Primary Care Provider Encounter Details Date Type Department Care Team (Late st Contact Info) Description 12/07/2019 Ancillary Orders [facility], X-Ray - [address] [address] Farnaz Aranda PA 15 [place] [address] [email or web address] Social History Tobacco Use Types Packs/Day [...] documented as of this encounter Care Teams Cable Splicer Helper Relationship Specialty Start Date End Date Farnaz Aranda PA [address] [place] [address] [email or web address] PCP - General Unknown Provider Specialty 07/23/19 01/21/22 Barbara Monroy MD 15 [place] [address] PCP - General Internal Medicine 01/22/22 Linda Holloway MD [address] [address] Historical LMR Provider 07/25/17 10/17/21 Kenisha Flores MD [address] [place] [address] [email or web address] Historical LMR Provider 07/25/17 10/17/21 Salena Cardenas MD [address] [address] [email or web address] Historical LMR Provider 07/25/17 10/17/21 Shay Dao MD [address] [place] [address] Historical LMR Provider 07/25/17 10/17/21 Casey Lofton MD Gastroenterology 02/14/20 documented as of this encounter Additional Source Comments The information contained in this document represents components of the legal health record. It is not the complete legal health record.[facility]
--- OUTSIDE RECORDS SUMMARY | 2025-08-29 12:32 | XMS_ITS | Encounter Summary ---
Author Organization [facility] Address [address] [place] [address] Phone Care Team Providers Care Etcher Hand Name Role Phone Casey Lofton MD, Christine D MD Primary Care Provider [phone] Encounter Details Date Type Department Care Team (Late st Contact Info) Description 09/21/2022 Procedure Pass [facility], Ct Scan - [address] [address] Social History Tobacco Use Types Packs/Day Years [...] 3:31 PM EST Dana Gandara RN * [place] Suicide Severity Rating Scale (Screener/Recent Self-Report) Question [...] on filedocumented in this encounter Care Teams Etcher Hand Relationship Specialty Start Date End Date Barbara Monroy MD [address] [place] [address] [email or web address] PCP - General Internal Medicine 01/22/22 Casey Lofton MD Gastroenterology 02/14/20 documented as of this encounter Additional Source Comments The information contained in this document represents components of the legal health record. It is not the complete legal health record.[facility]
--- OUTSIDE RECORDS SUMMARY | 2025-08-29 12:32 | XMS_ITS | Encounter Summary ---
Author Organization [facility] Address [address] [place] [address] Phone Care Team Providers Care Salesperson Burial Needs Name Role Phone Casey Lofton MD [facility] Barbara Dumont MD Primary Care Provider [phone] Reason for Referral * MRI/CAT Scan - Closed Specialty Diagnoses / Procedures Referred By Clarice [email or web address] Referred To Contact Radiology Diagnoses Chronic sinusitis, unspecified location Procedures CT Face Farnaz Aranda PA Phone: tel: fax: [email or web address] Referral ID Status Reason Start Date Expiration Date Visits Re quested Visits Authorized [id number] Closed 08/17/2022 08/17/2023 1 1 Encounter Details Date Type Department Care Team (Latest Contact Info) Description 08/17/2022 Transcribe Orders Virtual Department 30 [place] [address] Farnaz Aranda PA 15 [place] [address] [email or web address] Chronic sinusitis, unspecified location (Primary Dx) Social [...] of significant paranasal sinus disease. Farnaz LOGAN IM CT HEAD/NECK Final Result documented in this encounter Visit Diagnoses Diagnosis Chronic sinusitis, unspecified location- Primary Chronic sinusitis, unspecified location documented in this encounter Care Teams Salesperson Burial Needs Relationship Specialty Start Date End Date Barbara Monroy MD [address] [place] [address] [email or web address] PCP - General Internal Medicine 01/22/22 Casey Lofton MD Gastroenterology 02/14/20 documented as of this encounter Additional Source Comments The information contained in this document represents components of the legal health record. It is not the complete legal health record.[facility]
--- OUTSIDE RECORDS SUMMARY | 2025-08-29 12:33 | XMS_ITS | Encounter Summary ---
Author Organization [facility] Address [address] [place] [address] Phone Care Team Providers Care Joint Creaser Name Role Phone Casey Lofton MD [facility] e Barbara Monroy MD Primary Care Provider [phone] Encounter Details Date Type Department Care Team (Late st Contact Info) Description 08/17/2022 Procedure Pass [facility], Ct Scan - [address] [address] Social History Tobacco Use Types Packs/Day Years [...] on filedocumented in this encounter Care Teams Joint Creaser Relationship Specialty Start Date End Date Barbara Monroy MD [address] [place] [address] [phone] [email or web address] PCP - General Internal Medicine 01/22/22 Casey Lofton MD Gastroenterology 02/14/20 documented as of this encounter Additional Source Comments The information contained in this document represents components of the legal health record. It is not the complete legal health record.[facility]
--- OUTSIDE RECORDS SUMMARY | 2025-08-29 12:33 | XMS_ITS | Encounter Summary ---
Author Organization [facility] Address [address] [place] [address] Phone Care Team Providers Care Hydrology Technician Name Role Phone Linda Holloway MD Unavailable [phone] Kenisha Flores MD Unavailable + Salena Cardenas MD Unavailable [phone] Shay Dao MD Unavailable [phone] Farnaz Aranda Primary Care Provider [phone] Casey Lofton MD Unavailable Unavailabl e Barbara Monroy MD Primary Care Provider Encounter Details Date Type Department Care Team (Latest Contact Info) Description 02/13/2020 Transcribe Orders [facility] Specimen Processing 30 [place] [address] Carley Falcon PA-C 30 [place] [address] [email or web address] COVID-19 (Primary Dx) Social History [...] 2:51 PM EDT) Specimen Source [facility] COVID Testing Status In-house testing being performed [facility] Other 02/13/2020 2:51 PM EDT 02/13/2020 3:06 PM EDT us Carley Falcon PA-C LAB GENERAL ORDERABLES Fi nal Result [facility] [address] [place] [address] documented in this encounter Visit Diagnoses Diagnosis COVID-19- Primary documented in this encounter Additional Health Concerns Infection Onset Date Last Indicated Resolved Time Clearance-CoV Comment:Auto-resolved with negative COVID-19 PCR 02/13/2020 02/13/2020 02/13/2020 4:00 PM E DT CoV-Risk Comment:COVID-19 test pending Adm from home 02/13/2020 02/13/2020 02/14/2020 12:27 PM EDT documented as of this encounter Care Teams Hydrology Technician Relationship Specialty Start Date End Date Farnaz Aranda PA [address] [place] [address] [email or web address] PCP - General Unknown Provider Specialty 07/23/19 01/21/22 Barbara Monroy MD [address] [place] [address] [email or web address] PCP - General Internal Medicine 01/22/22 Linda Holloway MD [address] [place] [address], [address] [place] [address] Historical LMR Provider 07/25/17 10/17/21 Kenisha Flores MD 238 [place] [address] [email or web address] Historical LMR Provider 07/25/17 10/17/21 Salena Cardenas MD [address] [address] [email or web address] Historical LMR Provider 07/25/17 10/17/21 Shay Dao MD 41 [place] [address] Historical LMR Provider 07/25/17 10/17/21 Casey Lofton MD Gastroenterology 02/14/20 documented as of this encounter Additional Source Comments The information contained in this document represents components of the legal health record. It is not the complete legal health record.[facility]
--- OUTSIDE RECORDS SUMMARY | 2025-08-29 12:33 | XMS_ITS | Encounter Summary ---
Author Organization [facility] Address [address] [place] [address] Phone Care Team Providers Care Healthcare Business Analyst Name Role Phone Linda Holloway MD Unavailable [phone] Kenisha Flores MD Unavailable + Salena Cardenas MD Unavailable [phone] Shay Dao MD Unavailable [phone] Farnaz Aranda Primary Care Provider [phone] Casey Lofton MD Unavailable Unavailabl e Barbara Monroy MD Primary Care Provider Encounter Details Date Type Department Care Team (Latest Contact Info) Description 01/15/2020 Transcribe Orders [facility] Phleb [address] [address] Farnaz Aranda PA [address] [place] [address] [email or web address] Hypertension, unspecified type (Primary Dx) Social History [...] EDT) SODIUM 139 133 - 146 mmol/L [facility] CHLORIDE 99 96 - 108 mmol/L [facility] POTASSIUM 4.2 3.3 - 5.1 mmol/L [facility] CO2 29 21 - 35 mmol/L [facility] BUN 16 6 - 19 mg/dL [facility] CREATININE 0.80 0.5 - 1.5 mg/dL [facility] GLUCOSE 140(H) 70 - 99 mg/dL [facility] CALCIUM 9.6 8.4 - 10.3 mg/dL [facility] EGFR 78 >59 mL/min/1.7 3m2 [facility] Comment:If patient is black, multiply result by 1.159. Estimated glomerular filtration rate calculated using the CKD-EPI equation. ANION GAP 15 10 - 20 mmol/L [facility] Blood 01/15/2020 7:43 AM EDT 01/15/2020 8:32 AM EDT us Farnaz LOGAN LAB BLOOD BKR ORDERABLES Final Result Performing Organization Address City/State/[facility] Co de Phone Number [facility] 30 [place] [address] documented in this encounter Visit Diagnoses Diagnosis Hypertension, unspecified type- Primary documented in this encounter Additional Health Concerns Infection Onset Date Last Indicated Resolved Time Clearance-CoV Comment:Auto-resolved with negative COVID-19 PCR 02/13/2020 02/13/2020 02/13/2020 4:00 PM E DT CoV-Risk Comment:COVID-19 test pending Adm from home 02/13/2020 02/13/2020 02/14/2020 12:27 PM EDT documented as of this encounter Care Teams Healthcare Business Analyst Relationship Specialty Start Date End Date Farnaz Aranda PA [address] [place] [address] [email or web address] PCP - General Unknown Provider Specialty 07/23/19 01/21/22 Barbara Monroy MD 15 [place] [address] [email or web address] PCP - General Internal Medicine 01/22/22 Linda Holloway MD [address] [address] Historical LMR Provider 07/25/17 10/17/21 Kenisha Flores MD [address] [place] [address] [email or web address] Historical LMR Provider 07/25/17 10/17/21 Salena Cardenas MD [address] [address] [email or web address] Historical LMR Provider 07/25/17 10/17/21 Shay Dao MD [address] [place] [address] Historical LMR Provider 07/25/17 10/17/21 Casey Lofton MD Gastroenterology 02/14/20 documented as of this encounter Additional Source Comments The information contained in this document represents components of the legal health record. It is not the complete legal health record.[facility]
--- OUTSIDE RECORDS SUMMARY | 2025-08-29 12:33 | XMS_ITS | Encounter Summary ---
Author Organization [facility] Address [address] [place] [address] Phone Care Team Providers Care Medical Consultant Name Role Phone Linda Holloway MD Unavailable [phone] Kenisha Flores MD Unavailable + Salena Cardenas MD Unavailable [phone] Shay Dao MD Unavailable [phone] Farnaz Aranda Primary Care Provider [phone] Casey Lofton MD Unavailable Unavailabl e Barbara Monroy MD Primary Care Provider [phone] Encounter Details Date Type Department Care Team (Latest Contact Info) Description 12/13/2019 Transcribe Orders Virtual Department 30 [place] [address] Farnaz Aranda PA [address] [place] [phone] [email or web address] Shortness of breath (Primary Dx) Social History [...] Volumes, DLCO, Spirometry with bronchodilator; Performing Location: [facility] (07/08/2020 7:53 AM EDT) FEV1 [...] documented as of this encounter Care Teams Medical Consultant Relationship Specialty Start Date End Date Farnaz Aranda PA [address] [place] [address] [email or web address] PCP - General Unknown Provider Specialty 07/23/19 01/21/22 Barbara Monroy MD 15 [place] [address] PCP - General Internal Medicine 01/22/22 Linda Holloway MD 15 [facility], [address] [place] [address] Historical LMR Provider 07/25/17 10/17/21 Kenisha Flores MD [address] [place] [address] [email or web address] Historical LMR Provider 07/25/17 10/17/21 Salena Cardenas MD [address] [address] [email or web address] Historical LMR Provider 07/25/17 10/17/21 Shay Dao MD 41 [place] [address] Historical LMR Provider 07/25/17 10/17/21 Casey Lofton MD Gastroenterology 02/14/20 documented as of this encounter Additional Source Comments The information contained in this document represents components of the legal health record. It is not the complete legal health record.[facility]
--- OUTSIDE RECORDS SUMMARY | 2025-08-29 12:33 | XMS_ITS | Encounter Summary ---
Author Organization [facility] Address [address] [place] [address] Phone Care Team Providers Care Tailing Machine Operator Name Role Phone Casey Lofton MD [facility] e Barbara Monroy MD Primary Care Provider [phone] Encounter Details Date Type Department Care Team (Late st Contact Info) Description 09/15/2022 Procedure Pass [facility], Ct Scan - [address] [address] Social History Tobacco Use Types Packs/Day Years [...] on filedocumented in this encounter Care Teams Tailing Machine Operator Relationship Specialty Start Date End Date Barbara Monroy MD [address] [place] [address] [phone] [email or web address] PCP - General Internal Medicine 01/22/22 Casey Lofton MD Gastroenterology 02/14/20 documented as of this encounter Additional Source Comments The information contained in this document represents components of the legal health record. It is not the complete legal health record.[facility]
--- OUTSIDE RECORDS SUMMARY | 2025-08-29 12:34 | XMS_ITS | Encounter Summary ---
Author Organization [facility] Address [address] [place] [address] Phone Care Team Providers Care Pre Press Manager Name Role Phone Linda Holloway MD Unavailable [phone] Kenisha Flores MD Unavailable + Salena Cardenas MD Unavailable [phone] Shay Dao MD Unavailable [phone] Farnaz Aranda Primary Care Provider [phone] Casey Lofton MD Unavailable Unavailabl e Barbara Monroy MD Primary Care Provider Encounter Details Date Type Department Care Team (Latest Contact Info) Description 02/29/2020 Transcribe Orders [facility] Phle[facility] [place] [address] [place] [address] Farnaz Aranda PA 15 [place] [address] [email or web address] Leukocytosis, unspecified type (Primary Dx) Social History [...] EDT) WBC 11.88(H) 4.00 - 11.00 K/uL [facility] Comment:Note Reference Range updates to all CBC and Differential results. RBC 4.45 3.72 - 5.30 M/uL [facility] HGB 12.8 11.4 - 15.9 g/dL [facility] Comment:Note updated Referen ce Ranges for all CBC and Differential results. HCT 38.6 34.2 - 46.8 % [facility] PLT 392 140 - 430 K/uL [facility] MCV 86.7 78.0 - 97.0 fL [facility] MCH 28.8 25.0 - 33.0 pg [facility] MCHC 33.2 32.0 - 36.0 g/dL [facility] RDW 13.6 11.0 - 16.0 % [facility] MPV 9.4 8.4 - 12.8 fl [facility] NRBC 0.00 0 /100 WBCs [facility] ABSOLUTE NRBC 0.00 0 K/uL [facility] DIFF METHOD Auto [facility] NEUTS 71.4 43.0 - 75.0 % [facility] LYMPHS 21.2 18.2 - 47.4 % [facility] MONOS 5.0 4.00 - 11.00 % [facility] EOS 1.2 0.0 - 8.0 % [facility] BASOS 0.8 0.0 - 2.0 % [facility] Granulocytes, immature (%) 0.4 0.0 - 0.9 % [facility] ABSOLUTE NEUTS 8.48(H) 1.80 - 7.70 K/uL [facility] ABSOLUTE LYMPHS 2.52 1.00 - 3.10 K/uL [facility] ABSOLUTE MONOS 0.59 0.20 - 0.80 K/uL [facility] ABSOLUTE EOS 0.14 0.00 - 0.80 K/uL [facility] ABSOLUTE BASOS 0.10(H) 0.00 - 0.09 K/uL [facility] Granulocytes, immature 0.05 0.00 - 0.05 K/uL [facility] Blood 02/29/2020 8:46 AM EDT 02/29/2020 8:48 AM EDT Farnaz LOGAN LAB BLOOD BKR ORDERABLES Final Result Performing Organization Address City/State/[facility] Co de Phone Number [facility] [address] [place] [address] documented in this encounter Visit Diagnoses Diagnosis Leukocytosis, unspecified type- Primary documented in this encounter Care Teams Pre Press Manager Relationship Specialty Start Date End Date Farnaz Aranda PA [address] [place] [address] [email or web address] PCP - General Unknown Provider Specialty 07/23/19 01/21/22 Barbara Monroy MD [address] [place] [address] PCP - General Internal Medicine 01/22/22 Linda Holloway MD [address] [place] [address], [address] [place] [address] Historical LMR Provider 07/25/17 10/17/21 Kenisha Flores MD [address] [place] [address] [email or web address] Historical LMR Provider 07/25/17 10/17/21 Salena Cardenas MD [address] [address] [email or web address] Historical LMR Provider 07/25/17 10/17/21 Shay Dao MD 41 [place] [address] Historical LMR Provider 07/25/17 10/17/21 Casey Lofton MD Gastroenterology 02/14/20 documented as of this encounter Additional Source Comments The information contained in this document represents components of the legal health record. It is not the complete legal health record.[facility]
== END 2025-08-29 10:58 | disposition home or self-care (01) ==
LOC: HO.HUSH 09:24
PROVIDERS: PCP Nurse Practitioner Family; Visit Provider Urology
DX: N39.3 Stress incontinence (female) (male) (principal); R39.15 Urgency of urination; N36.42 Intrinsic sphincter deficiency (ISD); N81.89 Other female genital prolapse
CPT/HCPCS: 52000; 99214

== ENCOUNTER → 2025-08-29 09:23 | Outpatient (BNVA) | payer MEDICARE, OTHER, SELFPAY | PROVIDERS: PCP Nurse Practitioner Family; Visit Provider Urology | DX: R39.15 Urgency of urination (principal); N39.3 Stress incontinence (female) (male); N81.89 Other female genital prolapse; N36.42 Intrinsic sphincter deficiency (ISD) | CPT/HCPCS: 52000; 81003; 99212 ==